=== PATIENT | female | born 2005 | race Caucasian/White ===

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

== ENCOUNTER 2023-02-19 12:30 | Outpatient (RCR) | payer OTHER, SELFPAY ==
--- NOTE | 2022-12-26 11:17 | HP.PTEVAL_ITS ---
Patient's Visit Information ADINA GUZMAN is a 17 year old F referred to Physical Therapy by Dr. Veronique Upton MD with a diagnosis of TENDINITIS OF LEFT FOOT. Date of Evaluation: 12/26/22 Physical Therapist: Alli Haywood, PT, Cert MDT, OCS - Visit Plan Frequency: 2x /Week Duration: 4 Weeks Plan: PT INTERVTIONS ROM ANKLE ,FLEXABILITY G-S , STRENGTHENING EX'S ANKLE STABILZERS AND INTRINSICS ,PROPRIOCEPTION AND FUNCTIONAL STRENGTHENING - Subjective This 17 y/o female presents to physical therapy with left foot tendonitis. Patient has has pain in foot for ~ 2 1.2 years. Patient noticed stress reaction in foot. Eventually symptoms become worse ,had MRI showed tendonitis ,thus underwent debridement ankle arthroscopic left posterior debridement left [facility] also DR found a spur thus had excision on November 17 at [facility] by Dr Upton. Patient was in soft splint 2weeks .with NWB then placed in boot cam and 50 % with crutches. Patient seen DR yesterday everything look good and removed Cam boot and placed in ankle brace. Patient has min pain and some swelling. Patient has had arthroscopic left knee September 14 and had PT . Patient has some paresthesia/tingling. Patient sleeping good. Patient goal return to Club Volleyball. SOCAIL: Student [employer]. VOCATION: [employer] - Objective POSTURE: frontal plan mechanics normal arch. GAIT: Ambulates with slight antalgic gait left side. NEURO: mild paresthesia left foot. INSCION : well approximate. FLEXABILITY: calf mod tight. AROM: dorsiflexion 0 degrees ,plantar flexion 65 degrees ,inversion 40 degrees ,inversion 0 degrees. MMT: ( peak force) dorsiflexion 17.6 ,posterior tibialis 13,2 ,peroneus 8.9. PROPRIOCEPTION: impaired left compared to right - Balance/Special Test Scores Lower Extremity Functional Score: 41 - Goals Goal 1:: This patient to be I with HEP ankle Goal Time Frame: 4-6 Weeks Goal 2:: Patient to demonstrate 75% improvement with decrease pain and improved function. Goal Time Frame: 4-6 Weeks Goal 3:: Patient to improve AROM ankle WNL symmetrical left compared to tight to improve gait Goal Time Frame: 4-6 Weeks Goal 4:: Patient to improve peak force of ankle by 10 # to improve gait and function. Goal Time Frame: 4-6 Weeks Goal 5:: Patient to LFES score by 10 points or> to improve QOL and function - Rehabilitation Potential Physical Therapy Diagnosis: This patient underwent s/p debridement of ankle with decrease ROM ,strength ,proprioception and return playing club volleyball thus benefit from skilled PT Rehabilitation Potential: Good - Anticipated Interventions Patient/Client Instruction: Educate patient on: Condition, Plan of Care For the Purpose of:: To decrease pain, To increase ROM, To improve muscle performance and motor function, To improve ability to perform ADL's, To increase tolerance to activity/condition/position, To improve ability of physical actions for home/community/work/leisure, To improve gait and locomotor functions, To improve health of tissue, To decrease soft tissue restriction, To increase flexibility/ROM, To improve balance, To prevent re-injury Therapeutic Exercise to Include: Strength training, Endurance training, Balance training, Flexibilty training, Dynamic Lumbar Stabilization Comment: LEFT ANKLE For the Purpose of:: To decrease pain, To increase ROM, To improve muscle performance and motor function, To improve ability to perform ADL's, To increase tolerance to activity/condition/position, To improve ability of physical actions for home/community/work/leisure, To improve health of tissue, To decrease soft tissue restriction, To increase flexibility/ROM, To improve endurance, To improve balance, To prevent re-injury TENS: Yes IF ES: Yes Cryotherapy (ice pack, ice massage): Yes Thermo therapy (hot pack): Yes For the Purpose of:: To decrease pain, To decrease swelling/inflammation, To improve nutrient delivery to tissue, To increase oxygenation perfusion, To improve health of tissue, To decrease soft tissue restriction Thank you for the opportunity to evaluate your patient. For Medicare and Medicare HMO plans, please review the plan of care and approve it. It will need to be FAXED BACK to us at [phone] for Medicare purposes. For Medicare only, by signing this I certify the plan of care. Please let me know if there are questions or concerns regarding this plan of care. Physician Signature: Date:
--- NOTE | 2023-02-19 13:43 | HP.PTDCSUM_ITS ---
Discharge Summary D/C summary: It has been my pleasure to treat ADINA GUZMAN referred by Dr. Veronique Upton MD, with the diagnosis of TENDINITIS OF LEFT FOOT for a total of 14 visit(s). Discharge Date: 02/19/23 Please see the following information for a summary of their discharge status. Subjective Subjective: DOING GREAT Pain L ankle: Pain Intensity (Out of 10): 0 Overall Improvement % Improvement: 100 Objective Objective/Function: POSTURE: frontal plan mechanics normal arch. GAIT: Ambulate s with slight antalgic gait left side. NEURO: mild paresthesia left foot. INSCION : well approximate. FLEXABILITY: calf mod tight. AROM: dorsiflexion 10 degrees ,plantar flexion 65 degrees ,inversion 40 degrees ,inversion 5degrees. MMT: ( peak force) dorsiflexion 34.6 ,posterior tibialis 28,2 ,peroneus 23.9. PROPRIOCEPTION: NORMAL NO PAIN WITH RUNNING AND JUMPING Goals Goal 1:: This patient to be I with HEP ankle Goal Progress: Goal Met Goal 2:: Patient to demonstrate 75% improvement with decrease pain and improved function. Goal Progress: Goal Met Goal 3:: Patient to improve AROM ankle WNL symmetrical left compared to tight to improve gait Goal Progress: Goal Met Goal 4:: Patient to improve peak force of ankle by 10 # to improve gait and function. Goal Progress: Goal Met Goal 5:: Patient to LFES score by 10 points or> to improve QOL and function Goal Progress: Goal Met Plan Plan: D/C HEP RTS D/C Information d/c sentence: If there are questions or concerns regarding this patient's physical therapy, please feel free to call me at [phone]. Thank you for the referral of this patient. Sincerely, Alli Haywood, PT, Cert MDT, OCS Balance/Gait/Functional tests Balance/Special Test Scores Lower Extremity Functional Score: 80
== END 2023-02-19 14:15 | disposition home or self-care (01) ==
LOC: PT 12:30
PROVIDERS: PCP Family Medicine; Referring Provider Orthopaedic Surgery; Visit Provider Orthopaedic Surgery
DX: M77.52 Other enthesopathy of left foot and ankle (principal)
CPT/HCPCS: 97110; 97162; 97530

== ENCOUNTER → 2023-12-31 | Outpatient (CLI) | payer OTHER, SELFPAY ==
[2023-12-31 12:27] LABS: Absolute Lymphocyte Count 1.42 X10^3/uL (0.83-4.51); Absolute Neutrophil Count 3.4 X10^3/uL (2.0-7.7); Basophil# 0.05 X10^3/uL; Basophil% 0.9 % (0-1); Eosinophil# 0.13 X10^3/uL; Eosinophils% 2.4 % (0-5); Hematocrit 45.4 % (37-47); Lymphocyte # 1.42 X10^3/ul (0.83-4.51); Lymphocyte % 26.4 % (19-41); Mean Corpuscular Hgb 30.7 pg (27.0-32.0); Mean Corpuscular Volume 92.8 fL (81-99); Mean Platelet Vol. 9.8 fl (6.2-12.0); Monocyte# 0.34 X10^3/uL; Monocyte% 6.3 % (0-10); NRBC Flagged by Analyzer 0 % (0-5); Neutrophil # 3.42 X10^3/uL (2.7-7.7); Neutrophil % 63.8 % (47-70); Platelet Count 310 K/mm3 (150-450); RBC Distribution Width CV 11.8 % (11.6-14.6); RBC Distribution Width SD 40.3 fl (35.1-43.9); Red Blood Count 4.89 M/mm3 (4.2-5.4); White Blood Count 5.4 K/mm3 (4.4-11.0)
[2023-12-31 12:29] LABS: Differential Comment 5.4; Erythrocyte Sedimentation Rate 2 mm/hr (0-30)
[2023-12-31 13:03] LABS: AST(SGOT) 18 U/L (15-37); Alanine Aminotransfer ALT/SGPT 31 U/L (13-56); Albumin, Serum 3.9 g/dL (3.2-5.0); Alkaline Phosphatase 69 U/L (45-117); Anion Gap 6 (5-15); BUN 14 mg/dL (7-18); BUN/Creat Ratio 14.6 RATIO (10-20); Calcium,Total 9.5 mg/dL (8.5-10.1); Chloride 109 mmol/L (98-107); Creatinine, Serum 0.96 mg/dL (0.55-1.02); EST Glomerular Filtration Rate 79 mL/min (>60); Est Glom Filt Rate - Afr Amer 95 mL/min (>60); Globulin 3.9 g/dL (2.2-4.2); Glucose 89 mg/dL (74-106); Potassium 3.9 mmol/L (3.5-5.1); Protein, Total 7.8 g/dL (6.4-8.2); Sodium Level 140 mmol/L (136-145); Thyroid Stim Hormone (TSH) 1.41 uIU/mL (0.358-3.74)
[2024-01-01 15:08] LABS: EBV Acute VCA IgM < 36.0 U/mL (0.0-35.9); EBV Early Antigen IgG >150.0 U/mL (0.0-8.9); EBV-VCA IgG > 600.0 U/mL (0.0-17.9)
== END | disposition home or self-care (01) ==
LOC: MFPLAB 09:46
PROVIDERS: PCP Family Medicine; Visit Provider Family Medicine
DX: R53.83 Other fatigue (principal)
CPT/HCPCS: 36415; 80053; 84443; 85025; 85652; 86663; 86664; 86665

== ENCOUNTER → 2024-01-01 | Outpatient (CLI) | payer OTHER, SELFPAY ==
--- NOTE | 2024-01-01 16:23 | MRI_ITS ---
STUDY: MRI LEFT MIDFOOT REASON FOR EXAM: Female, 18 years old. LEFT FOOT PAIN, SPRAIN OF TARSOMETATARSAL LIGAMENT -- EVAL FOR LISFRANC LIGAMENT TEAR TECHNIQUE: Standardized fat and water weighted pulse sequences were obtained in all 3 orthogonal planes. COMPARISON: Left hindfoot MRI dated 05/21/2021. FINDINGS: Normal talonavicular articulation. Normal calcaneocuboid articulation. Normal navicular-cuneiform articulations. Normal intercuneiform articulations. Normal first tarsometatarsal articulation. Normal Lisfranc ligament. Normal second and third tarsometatarsal articulations. Normal cuboid fourth and cuboid fifth tarsometatarsal articulation. Normal first through fifth metatarsi. There is no demonstrated fracture of the metatarsal bones. Normal tibialis anterior tendon. Normal extensor hallucis longus tendon. Normal extensor digitorum longus tendons. Normal peroneus longus tendon and distal insertion. Normal peroneus brevis tendon and distal insertion. Normal intrinsic muscles of the mid and forefoot region. Normal extensor digitorum brevis muscle. Normal subcutis adipose space. There is no demonstrated soft tissue mass lesion. MRI/Lower Ext/No Jt/w/o IMPRESSION: Normal Lisfranc ligament. Normal MRI of the midfoot. Electronically Signed: Sawyer Nichols MD at 9:04 EDT ,
== END | disposition home or self-care (01) ==
LOC: MRI 16:19
PROVIDERS: PCP Family Medicine; Referring Provider Student in an Organized Health Care Education/Training Program; Visit Provider Student in an Organized Health Care Education/Training Program
DX: S93.622A Sprain of tarsometatarsal ligament of left foot, initial encounter (principal); M79.672 Pain in left foot
CPT/HCPCS: 73718

== ENCOUNTER 2024-12-05 02:16 | Emergency (ER) | payer OTHER, SELFPAY ==
[2024-12-05 02:17] VITALS: BP 143/89; PULSE 113; RESP 18; TEMP 36.9; O2SAT 100; BMI 34.0
--- NOTE | 2024-12-05 03:02 | ED.VIS.LOWEX ---
HPI History of Present Illness Chief Complaint: Lower Extremity Injury Informant: patient and parent Narrative Narrative: Here with mother left ankle injury 2 hours ago. The workshop when she excellently kicked something. No other injuries. Left foot pain for last 5 years followed by specialist in [place]. She had osteotomy this past July. Pain with ambulation. No medication taken prior arrival. No allergies to medications. [facility] Medical History Heart murmur IBS (irritable bowel syndrome) Hypoglycemia Patellar maltracking Home Medications ?Medication ?Instructions ?Recorded ?Last Taken ?Type drospirenone 3 mg-ethinyl 1 ea PO DAILY 08/07/20 Unknown History estradiol 0.02 mg tablet multivitamin 1 tab PO DAILY 02/06/23 Unknown History Allergy/AdvReac Type Severity Reaction Status Date / Time adhesive tape Allergy Mild Rash Verified 12/05/24 02:17 Surgical History Status post left foot surgery S/P left knee arthroscopy H/O rhinoplasty Social History Smoking Status: Never smoker ROS ROS ED Constitutional Constitutional ED: Denies fever(s) Gastrointestinal Gastrointestinal: Denies vomiting Musculoskeletal Musculoskeletal: Reports other Details: Left ankle injury. Integumentary Reports Abrasions; Denies rash or wounds Neurologic Neurologic: Denies weakness EXAM Physical Exam Const Vital Signs: 12/05/24 02:17 12/05/24 04:08 Temperature 98.4 F 98.3 F Temperature Source Oral Pulse Rate 113 H 68 Respiratory Rate 18 15 Blood Pressure 143/89 H 129/74 H Blood Pressure Mean 107 92 Pulse Ox 100 99 Oxygen Delivery Method Room Air Positive well nourished and well developed General Appearance ED: well developed HEENT normocephalic and atraumatic Eyes General Eye ED: Yes normal appearance of both eyes Neck full ROM Resp normal respiratory effort and normal air movement Cardio regular rhythm Rate: tachycardic GI soft to palpation Extremity Extremity Narrative: Left lower extremity no knee tenderness. No swelling slight ecchymosis lateral malleolus small abrasion noted with dried blood. There was dorsal foot healed scar area of the first metatarsal. Neuro oriented x3 Skin Skin Narrative: See above MDM MDM MDM Narrative Medical decision making narrative: Interventions / MDM: Differential diagnosis: Contusion Diagnosis considered but do not suspect: Fracture x-ray negative. My EKG interpretation: N/A Imaging independently reviewed and interpreted by myself: Left ankle x-ray 3 views: No fracture noted soft tissue swelling. External documents reviewed: N/A Test considered but not ordered:N/A ED course: Ice the injury the ankle. Ice was placed Motrin ordered. X-ray ankle for further evaluation. X-ray negative. Bon wrap Aircast provided mother has crutches in the car. Discussed continued NSAIDs as needed with outpatient follow-up. All questions were answered. Re-evaluation: stable Disposition discussed with patient/family/significant other: Patient and mother Case discussed with consulting clinician: N/A This note was generated with [employer] dictation software. It may contain incorrect words, spelling, and punctuation that were not noted in checking the note before signing. Radiography Diagnostic Testing: Clinical Impression(s) from Imaging Studies Ankle X-Ray 12/05/24 03:10 IMPRESSION: No fracture or dislocation. Joint spaces appear within limits. Lateral ankle soft tissue swelling. If symptoms persist, may follow-up with repeat imaging in 7-10 days as warranted. Reading Location: [facility] Discharge Plan Triage Chief Complaint: Lower Extremity Injury ED Provider: Aditya Randhawa Dx/Rx/DC Orders Clinical Impression: Contusion of ankle, left, Injury of ankle, left Instructions: ED Soft Tissue Contusion Prescriptions: No Action multivitamin Tablet 1 tab PO DAILY drospirenone-ethinyl estradiol 1 EACH tablet 1 ea PO DAILY Primary Care Provider: Care Physician,No Primary Referrals: Care Physician,No Primary [Primary Care Provider] - Activity Restrictions/Additional Instructions: Ankle x-ray negative for fracture. Bon wrap Aircast to support. Use your crutches as needed. Continue ibuprofen up to 600 mg every 6 hours for next 2 days and as needed. Continue ice. Follow-up with your doctors. Print Language: Serbian Disposition Disposition: Home, Self Care Discharge Date/Time: 12/05/24 04:09
--- NOTE | 2024-12-05 03:10 | RAD_ITS ---
PROCEDURE: ANKLE MIN 3 VIEWS 12/05/2024 REASON FOR EXAM: INJURY TECHNIQUE: 3 views of the left ankle COMPARISON: None available FINDINGS: No fracture or dislocation. Joint spaces appear within limits. Lateral ankle soft tissue swelling. RAD/Ankle min 3 Views IMPRESSION: No fracture or dislocation. Joint spaces appear within limits. Lateral ankle so ft tissue swelling. If symptoms persist, may follow-up with repeat imaging in 7-10 days as warranted. Reading Location: [id number]
[2024-12-05] MEDS: Ibuprofen 600 MG Tablet PO (03:34)
[2024-12-05 04:08] VITALS: BP 129/74; PULSE 68; RESP 15; TEMP 36.8; O2SAT 99
== END 2024-12-05 04:09 | disposition home or self-care (01) ==
PROVIDERS: Emergency Provider Emergency Medicine; Visit Provider Emergency Medicine
DX: S90.02XA Contusion of left ankle, initial encounter (principal); W22.8XXA Striking against or struck by other objects, initial encounter
CPT/HCPCS: 73610; 99283

== ENCOUNTER → 2024-12-30 | Outpatient (CLI) | payer OTHER, SELFPAY ==
[2024-12-30 12:30] LABS: Absolute Lymphocyte Count 1.91 X10^3/uL (0.83-4.51); Basophil# 0.04 X10^3/uL; Basophil% 0.5 % (0-1); Eosinophils% 1.3 % (0-5); Hematocrit 41.3 % (37-47); Hemoglobin 13.8 g/dL (12.0-15.0); Lymphocyte # 1.91 X10^3/ul (0.83-4.51); Lymphocyte % 25.2 % (19-41); Mean Corp Hgb Conc 33.4 g/dL (32-36); Mean Corpuscular Hgb 30.7 pg (27.0-32.0); Mean Corpuscular Volume 91.8 fL (81-99); Mean Platelet Vol. 9.5 fl (6.2-12.0); Monocyte# 0.46 X10^3/uL; Monocyte% 6.1 % (0-10); NRBC Flagged by Analyzer 0 % (0-5); Neutrophil # 5.03 X10^3/uL (2.7-7.7); Neutrophil % 66.5 % (47-70); Platelet Count 287 K/mm3 (150-450); RBC Distribution Width CV 11.6 % (11.6-14.6); RBC Distribution Width SD 39.4 fl (35.1-43.9); White Blood Count 7.6 K/mm3 (4.4-11.0)
[2024-12-30 12:54] LABS: Hemoglobin A1c 5.5 % (<=5.6)
[2024-12-30 13:28] LABS: ALB/GLOB Ratio 1.5 RATIO (0.9-2.4); AST(SGOT) 17 U/L (<=31); Alanine Aminotransfer ALT/SGPT 19 U/L (<=34); Albumin, Serum 4.2 g/dL (3.5-5.0); Alkaline Phosphatase 75 U/L (35-104); Anion Gap 13 (5-15); BUN 18 mg/dL (4-19); Calcium,Total 9.2 mg/dL (7.6-11.0); Carbon Dioxide 17.9 mmol/L (21.0-32.0); Chloride 107 mmol/L (98-108); Creatinine, Serum 0.82 mg/dL (0.70-1.20); EST Glomerular Filtration Rate 104 (>60); Globulin 2.8 g/dL (2.2-4.2); Glucose 93 mg/dL (70-99); Potassium 4.2 mmol/L (3.3-5.1); Sodium Level 138 mmol/L (133-145); Total Bilirubin 0.21 mg/dL (0.00-1.30); Vitamin D,25 Hydroxy 40.4 ng/mL (30-100)
[2024-12-31 13:08] LABS: ANTINUCLEAR ANTIBODIES DIRECT Negative (Negative)
[2025-01-01 07:08] LABS: Thyroid Stim Immunoglob <0.10 IU/L (0.00-0.55)
== END | disposition home or self-care (01) ==
LOC: MFPLAB 10:23
PROVIDERS: PCP Family Medicine; Referring Provider Family Medicine; Visit Provider Family Medicine
DX: Z13.1 Encounter for screening for diabetes mellitus (principal); R53.83 Other fatigue
CPT/HCPCS: 36415; 80053; 82306; 83036; 84439; 84443; 84445; 85025; 86038

== ENCOUNTER → 2025-02-18 | Outpatient (CLI) | payer OTHER, SELFPAY ==
[2025-02-18 10:39] LABS: Hematocrit 41.7 % (37-47); Hemoglobin 14.0 g/dL (12.0-15.0); Immature Granulocytes Count 0.010 X10^3/uL (0.0-0.0); Mean Corp Hgb Conc 33.6 g/dL (32-36); Mean Corpuscular Volume 90.8 fL (81-99); Mean Platelet Vol. 9.2 fl (6.2-12.0); NRBC Flagged by Analyzer 0 % (0-5); Platelet Count 286 K/mm3 (150-450); RBC Distribution Width CV 12.0 % (11.6-14.6); RBC Distribution Width SD 39.8 fl (35.1-43.9); Red Blood Count 4.59 M/mm3 (4.2-5.4); White Blood Count 6.7 K/mm3 (4.4-11.0)
[2025-02-18 11:45] LABS: AST(SGOT) 21 U/L (<=31); Alanine Aminotransfer ALT/SGPT 22 U/L (<=34); Albumin, Serum 4.3 g/dL (3.5-5.0); Alkaline Phosphatase 70 U/L (35-104); Anion Gap 16 (5-15); BUN 12 mg/dL (4-19); BUN/Creat Ratio 15.0 RATIO (10-20); CORTISOL AM 20.30 ug/dL (6.02-18.40); CRP 5.25 mg/L (0.0-3.0); Calcium,Total 9.7 mg/dL (7.6-11.0); Carbon Dioxide 19.0 mmol/L (21.0-32.0); Chloride 105 mmol/L (98-108); Globulin 2.8 g/dL (2.2-4.2); Glucose 84 mg/dL (70-99); HIV Nonreactive (Nonreactive); Potassium 3.6 mmol/L (3.3-5.1); Syphilis Antibodies Nonreactive (Nonreactive)
[2025-02-24 17:08] LABS: Immunoglobulin A 60 mg/dL (87-352); Immunoglobulin G 882 mg/dL (586-1602); Immunoglobulin M 56 mg/dL (26-217)
== END | disposition home or self-care (01) ==
LOC: MFPLAB 09:17
PROVIDERS: PCP Family Medicine; Visit Provider Family Medicine
DX: N94.6 Dysmenorrhea, unspecified (principal); R53.83 Other fatigue
CPT/HCPCS: 36415; 80053; 82533; 82627; 82784; 82785; 83516; 85025; 86140; 86255; 86617; 86703; 86780; 82626

== ENCOUNTER → 2025-02-20 | Outpatient (CLI) | payer OTHER, SELFPAY | END | disposition home or self-care (01) | LOC: MTLAB 08:38 | PROVIDERS: PCP Family Medicine; Referring Provider Family Medicine; Visit Provider Family Medicine | DX: E24.9 Cushing's syndrome, unspecified (principal) | CPT/HCPCS: 36415; 82088 ==

== ENCOUNTER → 2025-05-05 | Outpatient (CLI) | payer OTHER, SELFPAY ==
[2025-05-10 22:06] LABS: Cortisol, Free 24Ur 78 ug/24 hr (6-42)
== END | disposition home or self-care (01) ==
LOC: LABSPEC 09:11
PROVIDERS: PCP Family Medicine; Referring Provider Family Medicine; Visit Provider Family Medicine
DX: E24.9 Cushing's syndrome, unspecified (principal)
CPT/HCPCS: 81050; 82530

== ENCOUNTER → 2025-05-19 | Outpatient (CLI) | payer OTHER, SELFPAY ==
--- NOTE | 2025-05-19 16:33 | CT_ITS ---
PROCEDURE: SINUS/FACIAL BONE 05/19/2025 REASON FOR EXAM: OTHER CHRONIC SINUSITIS TECHNIQUE: Procedure Code: CTSI Modality: CT Procedure: SINUS/FACIAL BONE Coronal and Sagittal reconstruction series were provided. One or more dose reduction techniques were used (e.g., Automated exposure control, adjustment of the mA and/or kV according to patient size, use of iterative reconstruction technique). RADIATION DOSE SUMMARY: CTDI Vol 22.63 mGy DLP :515.6mGycm COMPARISON: none FINDINGS: Focal mucosal thickening of the left sphenoid sinus compartment and right ethmoidal air cells. Clear frontal sinuses as well as the maxillary antra ad left ethmoidal air cells. Uncinate Processes: No deviation or bulla formation O-M UNIT: patent. Sphenoethmoidal recesses. Patent Fovea Ethmoidalis: Normal position. Fovea ethmoidalis and cribriform plate are not low lying Nasal Septum: minimally bowed convex to the left side with small bony spur seen along its convex side. Turbinates: Thickening of the mucosa covering the right inferior turbinate. Nasopharynx: no obvious abnormalities. Mastoid air cells and middle ear clefts: Unremarkable Facial Bones and mandible: Unremarkable. CT/Sinus/Facial Bone IMPRESSION: Mild sphenoid and right ethmoidal sinusitis. Bowed nasal septum convex to the left side. Prominent right inferior turbinate. Reading Location: [place] [id number]
--- OUTSIDE RECORDS SUMMARY | 2025-05-19 17:28 | XMS RPT_ITS | CCD ---
Author Organization [facility] Care Team Providers Care Real Estate Broker Name Role Phone Dr. Amber Galindo Primary Care Provider Dr. Sadiq Tenorio Attending Provider [phone] Yanna Jackson Referring Provider Dr. Amber Galindo Primary Care Provider Dr. Amber Galindo Referring Provider [phone] Dr. Kaye Rodriguez Attending Provider [phone] Unavailable Primary Care Provider Unavailchilango Galindo MD, Amber Guzmán Primary Care Provider MARYAM LANCASTER Attending Unavailable AMBER GALINDO Primary Care Unavailable PROMISE ROMANO Attending Unavailabl e NO, PHYSICIAN Primary Care Unavailable SUNIL LOPES Attending UnavailSUNIL Snell Referring Unavailabl AMBRE Archer RAFAEL Primary Care Unavailable Amber Galindo Primary Care Provider [phone] Amber Galindo Rafael Primary Care Provider [phone] AMBER GALINDO Primary Care Unavailable ANASTASIA TEJADA Attending Unavailable FENG TOLENTINO Attending Unavailab AMBER Sanchez Primary Care Unavailable AMBER GALINDO RAFAEL Primary Care Unavailable MIRNA NAVARRO Attending Unavailable SUNIL PANIAGUA JR. Referring Unavailable SUNIL PANIAGUA JR. Admitting Unavailable Care Physician, No Primary Primary Care Provider Unavailable Dr. Aditya Randhawa DO Emergency Provider Dr. Aditya Randhawa DO Attending Provider [phone] June COREA, Luisito Primary Care Provider Luisito Watkins MD Attending Provider June COREA, Luisito Referring Provider Dr. Sadiq Benítez MD Attending Provider Dr. Sadiq Benítez MD Referring Provider JOLLIFF, AMBER RAFAEL Primary Care Unavailable HAURY, DURAN Referring Unavailable JOLLIFF, AMBER RAFAEL Primary Care Unavailable HAURY, DURAN Attending Unavailable JAYLONLLIFF, AMBER RAFAEL Primary Care Unavailable June COREA, Luisito Primary Care Physician [phone] Luisito Watkins MD Attending Physician Jeyson COREA, Dr. Babcock Attending Physician Dr. Amber Galindo MD Referring Provider Omayra COREA, Dr. Charles Attending Physician June, Chalon Primary Care Unavailable Amber Galindo S Referring Unavailable Melvin Cutler Attending Unavailable June, Chalon Primary Care Unavailable Jeyson, Sadiq Attending Unavailable Benítez, Sadiq Referring Unavailable June, Chalon Primary Care Unavailable Jeyson, Sadiq Attending Unavailable Benítez, Sadiq Referring Unavailable June, Chalon Primary Care Unavailable Benítez, Sadiq Attending Unavailable Benítez, Sadiq Referring Unavailable June, Chalon Primary Care Unavailable Benítez, Sadiq Attending Unavailable Aditya Randhawa Attending Unavailable Care Physician, No Primary Primary Care Unava ilable [place] Attending Unavailchilango e [place] Referring Unavailabl e June, Chalon Primary Care Unavailable June, Chalon Primary Care Unavailable June, Chalon Attending Unavailable June, Chalon Referring Unavailable Allergies Allergy Classification Reported Allergen(s) Allergy Type Date of Onset Reaction(s) Facility (7 sources) Adhesive Tape; Translations: [adhesive tape] Allergy to substance 3 [facility] (12 sources) Adhesive Tape-Silicones; Translations: [ADHESIVE TAPE-SILICONES] Propensity to adverse reactions to drug 3 [facility] Medications Current Medications Medication Drug Class(es) Dates Sig (Normalized) Sig (Original) acetaminophen 250 mg / aspirin 250 mg / caffeine 65 mg oral tablet (1 source) Platelet Aggregation Inhibitor, Nonsteroidal Anti-inflammatory Drug, Central Nervous System Stimulant, Methylxanthine Start: 08-28-2023 End: 09-12-2023 take 2 tablets by mouth once daily as needed for pain aspirin-acetamin ophen-caffeine (EXCEDRIN MIGRAINE) 250-250-65 mg per tablet Indications: Post concussive syndrome Take 2 (two) tablets by mouth daily as needed for pain . 30 tablet 0 08/28/2023 09/12/2023 Active ascorbic acid 1000 mg oral capsule (1 source) Vitamin C Start: 04-06-2025 take 1 capsule by mouth twice daily Ascorbic Acid (Vitamin C) 1,000 mg capsule Active 1000 mg PO TWICE A DAY April 06, 2025 12:00am Complies with drug therapy benzonatate 100 mg oral capsule (1 source) Non-narcotic Antitussive Start: 08-23-2024 End: 08-30-2024 take 1 capsule by mouth three times daily as needed for cough benzonatate (TESSALON) 100 MG capsule Indications: Influenza B Take 1 (one) capsule (100 mg total) by mouth 3 (three) times a day as needed for cough . 20 capsule 08/23/2024 08/30/2024 Active dextromethorphan hydrobromide 15 mg / guaiFENesin 400 mg / pseudoephedrine hydrochloride 60 mg oral tablet (3 sources) alpha-Adrenergic Agonist, Uncompetitive N-lvxjnx-L-aspartate Receptor Antagonist, Sigma-1 Agonist Start: 08-23-2024 take 1 tablet by mouth every six hours as needed for cough pseudoephedrine- DM-guaiFENesin (Capmist DM) 60-15-400 mg Tab Indications: Influenza B Take 1 (one) tablet by mouth every 6 (six) hours as needed (cough, congestion) . 30 tablet 08/23/2024 Active dicyclomine hydrochloride 10 mg oral capsule (5 sources) Anticholinergic Start: 08-16-2023 take 1 capsule by mouth four times daily before mealtime dicyclomine (BENTYL) 10 MG capsule Take 1 (one) capsule (10 mg total) by mouth 4 (four) times a day before meals and nightly for 7 days . 28 capsule 0 08/16/2023 Active docusate sodium 50 mg / sennosides, retirement 8.6 mg oral tablet (5 sources) Start: 08-27-2023 End: 08-26-2024 take 1 tablet by mouth once daily senna-docusate (SENNA-S) 8.6-50 mg Take 1 (one) tablet by mouth daily . 30 tablet 11 08/27/2023 08/26/2024 Active Drospirenone-Ethinyl Estradiol (20 sources) Progestin, Estrogen Start: 08-07-2020 Drospirenone-Eth inyl Estradiol Active 1 EACH PO DAILY August 07, 2020 7:55am Start: 08-07-2020 Drospirenone-E thinyl Estradiol 1 EACH tablet Active 1 NMA PO DAILY August 07, 2020 1:00am Complies with drug therapy Start: 08-07-2020 Drospirenone-E thinyl Estradiol 1 EACH tablet Active 1 NMA PO DAILY August 07, 2020 1:00am Start: 08-07-2020 Drospirenone-E thinyl Estradiol Active 1 EACH PO DAILY August 07, 2020 12:00am Start: 08-07-2020 Drospirenone-E thinyl Estradiol Active 1 EACH PO DAILY August 07, 2020 1:00am 21 day ethinyl estradiol 0.417614 mg/hr / etonogestrel 0.005 mg/hr vaginal system (14 sources) Progestin, Estrogen Start: 11-30-2023 End: 08-13-2024 etonogestreL-ethinyl estradioL (NUVARING) 0.12-0.015 mg/24 hr vaginal ring Insert 1 (one) each into the vagina See Admin Instructions . 02/25/2024 Active fluticasone propionate 0.05 mg/actuat metered dose nasal spray (3 sources) Corticosteroid Start: 08-23-2024 fluticasone propionate (Flonase Allergy Relief) 50 mcg/actuation nasal spray Indications: Influenza B Instill 2 (two) sprays into each nostril nightly 2 spray each nostril . 16 mL 08/23/2024 Active ibuprofen 600 mg oral tablet (5 sources) Nonsteroidal Anti-inflammatory Drug Start: 08-16-2023 End: 09-15-2023 take 1 tablet by mouth every six hours as needed for pain ibuprofen (ADVIL,MOTRIN) 600 MG tablet Take 1 (one) tablet (600 mg total) by mouth every 6 (six) hours as needed for pain . 30 tablet 0 08/16/2023 09/15/2023 Active miSOPROStol 0.2 mg oral tablet (1 source) Prostaglandin E1 Analog Start: 06-21-2023 End: 06-22-2023 miSOPROStol (CYTOTEC) 200 mcg tablet Use 2 tablets vaginally as directed for [address] 2 tablets vaginally qhs before the procedure and 2 the morning of 4 tablet 0 06/21/2023 06/22/2023 Active Comment on above: Use 2 tablets vagina lly as directed for [address] 2 tablets vaginally qhs before the procedure and 2 the morning of Multivitamin preparation (1 source) Start: 02-06-2023 take 1 tablet by mouth once daily Multivitamin Active 1 TABLET PO DAILY February 06, 2023 12:00am Multivitamin tablet (5 sources) Start: 02-06-2023 Multivitamin tablet Active 1 {tbl} PO DAILY February 06, 2023 12:00am Complies with drug therapy Start: 02-06-2023 Multivitamin t ablet Active 1 {tbl} PO DAILY February 06, 2023 12:00am NAC (1 source) Start: 04-06-2025 take 600 mg by mouth twice daily NAC Active PO April 06, 2025 12:00am 600mg BID. Complies with drug therapy ondansetron 4 mg disintegrating oral tablet (5 sources) Serotonin-3 Receptor Antagonist Start: 08-22-2023 End: 08-29-2023 take 1 tablet by mouth every eight hours as needed for nausea ondansetron (ZOFRAN-ODT) 4 MG disintegrating tablet Dissolve 1 (one) tablet (4 mg total) on top of tongue every 8 (eight) hours as needed for nausea . 20 tablet 0 08/22/2023 08/29/2023 Active oseltamivir 75 mg oral capsule (1 source) Neuraminidase Inhibitor Start: 08-23-2024 End: 08-28-2024 take 1 capsule by mouth twice daily oseltamivir (Tamiflu) 75 MG capsule Indications: Influenza B Take 1 (one) capsule (75 mg total) by mouth 2 (two) times a day for 5 days . 10 capsule 08/23/2024 08/28/2024 Active polyethylene glycol 3350 64751 mg powder for oral solution (5 sources) Osmotic Laxative Start: 08-27-2023 End: 09-03-2023 polyethylene glycol (MIRALAX) 17 gram powder Take 17 (seventeen) g by mouth daily for 7 days . 7 packet 0 08/27/2023 09/03/2023 Active Completed/Discontinued Medications Medication Drug Class(es) Dates Sig (Normalized) Sig (Original) calcipotriene 0.29171 mg/mg topical ointment (4 sources) Vitamin D Analog Start: 04-30-2023 End: 11-08-2023 calcipotriene (DOVONEX) 0.005 % oint doxycycline hyclate 100 mg oral tablet (1 source) Tetracycline-class Drug Start: 09-04-2023 End: 09-11-2023 take 1 tablet by mouth twice daily doxycycline (VIBRA-TABS) 100 mg tablet Take 1 tablet by mouth two times a day for 7 days. 14 tablet 0 09/04/2023 09/11/2023 Comment on above: Take 1 tablet by hallie two times a day for 7 days. levonorgestrel 0.341467 mg/hr intrauterine system (9 sources) Progestin, Progestin-containi ng Intrauterine Device Start: 06-27-2023 End: 06-25-2031 levonorgestrel (MIRENA) 21 mcg/24 hours (8 yrs) 52 mg IUD Indications: Encounter for IUD insertion 1 Each by INTRAUTERINE route as directed. 1 Each 0 06/27/2023 11/30/2023 Discontinued (Side Effects) Comment on above: 1 Each by INTRAUTERI NE route as directed. Problems Active Problems Problem Classification Problem Date Documented Da te Episodic/Chronic Abdominal pain (20 sources) Abdominal pain; Translations: [Unspecified abdominal pain] Onset: 08-15-2023 08-08-2020 Episodic Alcohol-related disorders (2 sources) Alcohol intoxication; Translations: [Alcohol intoxication] Onset: 08-22-2023 Chronic Contraceptive and procreative management (7 sources) Patient encounter status; Translations: [Encounter for initial prescription of other contraceptives] 06-21-2023 Episodic Delirium, dementia, and amnestic and other cognitive disorders (4 sources) Postconcussion syndrome; Translations: [Postconcussional syndrome] Onset: 08-28-2023 08-28-2023 Chronic E Codes: Fall (2 sources) Unspecified fall, initial encounter; Translations: [Unspecified fall, initial encounter] Onset: 08-22-2023 Episodic E Codes: Fall (2 sources) Fall; Translations: [Fall] Onset: 08-22-2023 Gastrointestinal hemorrhage (20 sources) Hematochezia; Translations: [Melena] 08-08-2020 Episodic Immunizations and screening for infectious disease (1 source) Suspected disease caused by 2019-nCoV; Translations: [Suspected COVID-19 virus infection] 08-23-2024 Episodic Influenza (3 sources) Influenza due to Influenza B virus; Translations: [Influenza due to other identified influenza virus with other respiratory manifestations] Onset: 08-23-2024 08-23-2024 Episodic Menstrual disorders (1 source) Dysmenorrhea, unspecified; Translations: [Dysmenorrhea, unspecified] Onset: 02-24-2025 Chronic Other bone disease and musculoskeletal deformities (20 sources) Segmental and somatic dysfunction; Translations: [Segmental and somatic dysfunction of cervical region] 02-06-2023 Episodic Other bone disease and musculoskeletal deformities (3 sources) Segmental and somatic dysfunction of cervical region; Translations: [Nonallopathic lesions, cervical region] 02-06-2023 Episodic Other bone disease and musculoskeletal deformities (3 sources) Segmental and somatic dysfunction of lumbar region; Translations: [Nonallopathic lesions, lumbar region] 02-06-2023 Episodic Other bone disease and musculoskeletal deformities (3 sources) Segmental and somatic dysfunction of pelvic region; Translations: [Nonallopathic lesions, pelvic region] 02-06-2023 Episodic Other bone disease and musculoskeletal deformities (3 sources) Segmental and somatic dysfunction of thoracic region; Translations: [Nonallopathic lesions, thoracic region] 02-06-2023 Episodic Other connective tissue disease (1 source) Pain in left foot; Translations: [Pain in left foot] 11-21-2024 Episodic Other connective tissue disease (2 sources) Pain in left foot; Translations: [Pain in left foot] Onset: 11-21-2024 Episodic Other endocrine disorders (2 sources) Yenny's syndrome, unspecified; 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, 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 Chronic Other gastrointestinal disorders (20 sources) Diarrhea; Translations: [Diarrhea, unspecified] 08-08-2020 Episodic Other injuries and conditions due to external causes (2 sources) Unspecified injury of head, initial encounter; Translations: [Unspecified injury of head, initial encounter] Onset: 08-22-2023 Episodic Other injuries and conditions due to external causes (5 sources) Injury of left ankle; Translations: [Unspecified injury of left ankle, initial encounter] 12-05-2024 Episodic Other nervous system disorders (9 sources) Postoperative pain ; Translations: [Other acute postprocedural pain] 09-24-2022 Episodic Other nervous system disorders (2 sources) Paresthesia of foot ; Translations: [Paresthesia of skin] 04-06-2025 Episodic Comment on above: Problem involves pre dominantly the left foot and appears to be enthesiopathy at the first tarsometatarsal joint. This is likely a stress injury to bone. Patient also had a heel spur. Patient may be experiencing pressure type symptoms in the feet with episodic numbness when standing. Seems to improve when resting.Father and brother have a history of rotator cuff tears and father has a history of left labrum injury. Patient may be prone to familial connective tissue dysfunction. Exact nature not clear to my review. Other nervous system disorders (1 source) Paresthesia of skin; Translations: [Paresthesia of skin] Onset: 05-13-2025 Episodic Other upper respiratory infections (1 source) Other chronic sinusitis; Translations: [Other chronic sinusitis] Onset: 05-13-2025 Chronic Other upper respiratory infections (3 sources) Sore throat symptom; Translations: [Acute pharyngitis, unspecified] Onset: 08-23-2024 08-23-2024 Episodic Residual codes; unclassified (1 source) Viral syndrome; Translations: [Other general symptoms and signs] 08-23-2024 Episodic Residual codes; unclassified (2 sources) Other general symptoms and signs; Translations: [Other general symptoms and signs] Onset: 08-23-2024 Episodic Spondylosis; intervertebral disc disorders; other back problems (12 sources) Neck pain; Translations: [Cervicalgia] 02-06-2023 Episodic Unclassified (1 source) Contact with and (suspected) exposure to covid-19; Translations: [Contact with and (suspected) exposure to covid-19] Onset: 08-23-2024 Viral infection (2 sources) Reed-Griggs virus disease; Translations: [Infectious mononucleosis, unspecified without complication] Onset: 05-13-2025 04-06-2025 Episodic Past or Other Problems Problem Classification Problem Date Documented Da te Episodic/Chronic Malaise and fatigue (3 sources) Malaise and fatigue; Translations: [Other malaise] Onset: 07-07-2024 07-07-2024 Episodic Mood disorders (3 sources) Mood disorders Onset: 08-27-2023 08-27-2023 Other screening for suspected conditions (not mental disorders or infectious disease) (1 source) Encounter for screening for diabetes mellitus; Translations: [Encounter for screening for diabetes mellitus] Onset: 01-04-2025 Episodic Superficial injury; contusion (6 sources) Contusion of left ankle; Translations: [Contusion of left ankle, initial encounter] Onset: 12-11-2024 12-05-2024 Episodic Unclassified (1 source) Contact with and (suspected) exposure to covid-19; Translations: [Contact with and (suspected) exposure to covid-19] Onset: 08-23-2024 Results Test Name Value Interpretation Reference Range Facil ity Cortisol, 24 HR UR Freeon CORTISOL,F/24hr 78 ug/24 hr High 6-42 [facility] Comment on above: Order Comment: Order Date: 12/30/24 Order Info: [id number] - A1C Result Comment: Perf ormed at: - [facility] [id number] Clinical Support Tech: Taryn Barber MD, Phone: [phone] Performed By: #### L 501.9985, L3400.4700, L506.0400, L100.0100, L3100.5475, L500.4050, L501.9520 #### [facility] [address] [place], [place], [id number] CORTISOL,U FREE 27 ug/L Normal Undefined [facility] Comment on above: Order Comment: Order Date: 12/30/24 Order Info: 4548-4 - A1C Performed By: #### L 501.9985, L3400.4700, L506.0400, L100.0100, L3100.5475, L500.4050, L501.9520 #### [facility] [address] [place], [address] Neurology Visit Reporton Neurology Visit Report [facility] [address] [place] [address] OFFICE VISIT Date of Service: 04/06/25 MR#: [id number] Acct: [id number] Name: CHEYENNE HERNANDEZ Rep #: [id number] : 2005 Provider: Dr. Melvin calzada MD Age/Sex: 19/F Location[place] [facility] [place] Status: Signed HPI HPI Chief Complaint: est care Details: The patient is a 19-year-old right -handed female who presents to [facility]. She was referred 10/28/[address] Sunil Paniagua with [facility] for paresthesia of lower extremity top left foot, but recently the top right foot has started to hurt and go numb. This lady presents by herself for evaluation of the above symptoms. She tells me that left foot symptoms began about 5 years ago. Right foot symptoms began within the past few months. Patient has had significant left foot symptoms with pain and dysfunction. Her initial evaluation by an orthopedist resulted in surgery and ankle spur which may have been compromising the Achilles tendon. Patient subsequently had difficulties and what appeared to be the first tarsometatarsal region of the left foot. Patient has had surgery on the left foot for those symptoms. Patient tells me that following left foot surgery she developed numbness of the left foot. Initially the foot problem involves the entire foot but has gradually reduced to a small oval-shaped area just proximal to the 1st and 2nd toes at the head of the metatarsals. This appears to be a local nerve injury. Patient had extensive evaluations with imaging of the feet and of the back as well. She appears to have had an enthesiopathy in the region of the left first carpometacarpal joint. That is a stress reaction which the muscle insertion elevates the periosteum of the bone. (Shinsplints as an example of a similar problem). Patient had put on about 40 pounds of weight upon graduating from high school. She notes that she works on her feet for extended periods of time and may have symptoms related to walking on a hard surface. She has tried various shoes. She has tried orthotics as well. She does not seem to get relief. Evaluation for possible radiculopathy and neuropathy has been performed. She has had a recent EMG and nerve conduction study performed in November. This is performed at [facility] in [place] and his report is completely normal. NCV included lower extremities and upper extremities well. This study was reported as completely normal. No evidence of neuropathy identified. Patient's overall symptom complex suggest that the patient may be experiencing local pressure neuropathy from standing on her feet working on a hard surface. Patient has no other neurologic symptoms identified. There is a positive family history for diabetes in her mother. There is a positive family history for torn rotator cuffs in her father and brother involving the shoulders. Her father also has a torn labrum of the hip. Possible underlying connective tissue disorder may warrant consideration. Patient has seen veneer grader who did not identify an issue however. Patient did have an elevated CRP of 5 with an upper limit of 3 which is unimpressive. Patient patient is due to be evaluated by instructor decorating for possible pituitary dysfunction. Patient's pituitary is thought to be a possible problem because the patient had an elevated cortisol and an MRI of the adrenals was normal. Patient's elevation cortisol was 20 with an upper limit of 18 which appears relatively unimpressive. I did review patient's laboratory but after she left the clinic I noted that she seemed to have very significant elevation Reed-Griggs virus titers. This is a possible explanation for fatigue and migratory aches and pains. I would recommend that the patient's primary care physician review the various titers that have been obtained on this patient is to relevancy to her overall symptom complex. I did suggest the patient maintain activity such as swimming as a method of maintaining muscle tone and perhaps relieving stress on her skeletal system. It is possible that if she does have an elevation in cortisol and a possible tendency for anesthesia for things that the patient may be at risk for further stress fractures and enthesiopathy's in general. ROS: HEENT: No head trauma headaches loss of vision difficulty swallowing. No epistaxis Respiratory: No shortness of breath. No hemoptysis Cardiac: No chest pain palpitations Abdomen: Obese positive for irritable bowel. Blood in stool. Hemorrhoid. Extremities: Enthesiopathy left foot is noted. Skin: Report of stretch diaz. (Another possible indicator of connective tissue disorder this may be seen in Marfan's or Keya-Danlos although she does not specifically fit body habitus criteria.) Neurologic: No neurologic complaints with regard to seizures or str (more content not included)... 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 COMPARISON: None. TECHNIQUE: Axial T1 weighted in- and nec-aw-ccplb, 3-D GRE and axial and coronal HASTE images were obtained using the torso phased array coil. No intravenous contrast was administered. FINDINGS: The right adrenal gland is normal. The left adrenal gland is normal. The gallbladder is normal. No intrahepatic or extrahepatic biliary dilatation is identified. Common duct is normal in caliber. No filling defect within The visualized portions of the liver, spleen, pancreas and kidneys are normal. The visualized appendix appears normal. Aorta is normal in course and caliber. Visualized bony structures appear intact. Lung bases appear unremarkable IMPRESSION: NORMAL ADRENAL GLANDS. ... 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 Aldosterone, Serumon 025 ALDOSTERONE,S 6.1 ng/dL Normal 0.0-30.0 [facility] Comment on above: Order Comment: Order Date: 12/30/24 Order Info: [id number] - A1C Result Comment: Perf ormed at: - [facility] [address] [id number] Clinical Support Tech: Taryn Barber MD, Phone: [phone] Performed By: #### L 501.9985, L3400.4700, L506.0400, L100.0100, L3100.5475, L500.4050, L501.9520 #### [facility] [address] [place], [address] Celiac Disease Profileon ENDOMYSIAL IGA Negative Normal Negative [facility] Comment on above: Performed By: #### L 501.9985, L3400.4700, L506.0400, L100.0100, L3100.5475, L500.4050, L501.9520 #### [facility] [address] [place], [address] tTG IGA <2 Normal 0-3 [facility] Comment on above: Result Comment: Nega tive 0 - 3 Weak Positive 4 - 10 Positive >10 Tissue Transglutaminase (tTG) has been identified as the endomysial antigen. Studies have demonstr- ated that endomysial IgA antibodies have over 99% specificity for gluten sensitive enteropathy. Performed By: #### L 501.9985, L3400.4700, L506.0400, L100.0100, L3100.5475, L500.4050, L501.9520 #### [facility] [address] [place], [address] tTG IGG 4 U/mL Normal 0-5 [facility] Comment on above: Result Comment: Nega tive 0 - 5 Weak Positive 6 - 9 Positive >9 Performed By: #### L 501.9985, L3400.4700, L506.0400, L100.0100, L3100.5475, L500.4050, L501.9520 #### [facility] [address] [place], [place], [id number] DHEA Sulfateon 02-24-2025 DHEA SULFATE 232.0 ug/dL Normal 110.0-431.7 [facility] Comment on above: Order Comment: Order Date: 12/30/24 Order Info: [id number] - CMP Order Info: [id number] - TSH Order Info: [id number] - T4F Result Comment: Perf ormed at: - [facility] [id number] Clinical Support Tech: Andrade David PhD, Phone: [phone] Performed at: - [facility] [id number] Clinical Support Tech: Taryn Barber MD, Phone: [phone] Performed By: #### L 501.9985, L3400.4700, L506.0400, L100.0100, L3100.5475, L500.4050, L501.9520 #### [facility] [address] [place], [address] Immunoglobulins G/A/M/Lyle IMMUNOGLOB A QN 60 mg/dL Low 87-352 [facility] Comment on above: Order Comment: Order Date: 12/30/24 Order Info: [id number] - A1C Performed By: #### L 501.9985, L3400.4700, L506.0400, L100.0100, L3100.5475, L500.4050, L501.9520 #### [facility] [address] [place], [address] IMMUNOGLOB E QN 26 IU/mL Normal 6-495 [facility] Comment on above: Order Comment: Order Date: 12/30/24 Order Info: [id number] - A1C Performed By: #### L 501.9985, L3400.4700, L506.0400, L100.0100, L3100.5475, L500.4050, L501.9520 #### [facility] [address] [place], [address] IMMUNOGLOB G QN 882 mg/dL Normal 586-1602 [facility] Comment on above: Order Comment: Order Date: 12/30/24 Order Info: [id number] - A1C Performed By: #### L 501.9985, L3400.4700, L506.0400, L100.0100, L3100.5475, L500.4050, L501.9520 #### [facility] [address] [place], [address] IMMUNOGLOB M QN 56 mg/dL Normal 26-217 [facility] Comment on above: Order Comment: Order Date: 12/30/24 Order Info: [id number] - A1C Performed By: #### L 501.9985, L3400.4700, L506.0400, L100.0100, L3100.5475, L500.4050, L501.9520 #### [facility] [address] [place], [address] Lyme Antibodies,W Bloton Lyme Additional Comment Normal . [facility] Comment on above: Result Comment: Per CDC criteria, the Lyme IgG Immunoblot is interpreted as positive if IgG-class antibodies are detected to 5 or more B. burgdorferi proteins, and the Lyme IgM Immunoblot is interpreted as positive if IgM-class antibodies are detected to 2 or more B. burgdorferi proteins. Immunoblot patterns not meeting these criteria should not be interpreted as positive. Epitopes from certain B. burgdorferi proteins (e.g., p41) are conserved across other bacteria, which may lead to the detection of IgM-and/or IgG class antibodies on the Lyme disease immunoblots in patients without Lyme disease. Immunoblot should only be ordered on specimens that are positive or equivocal by an FDA-licensed Lyme disease antibody screening test (e.g., EIA). Results of the Lyme IgM immunoblot should not be considered in patients with 30 or more days of symptoms. Performed By: #### L 501.9985, L3400.4700, L506.0400, L100.0100, L3100.5475, L500.4050, L501.9520 #### [facility] [address] [place], [place], [id number] LYME IgG INTERP Negative Normal Negative [facility] Comment on above: Performed By: #### L 501.9985, L3400.4700, L506.0400, L100.0100, L3100.5475, L500.4050, L501.9520 #### [facility] [address] [place], [address] LYME IgM INTERP Negative Normal Negative [facility] Comment on above: Result Comment: Plea se Note: Lyme immunoblot alone is not recommended for the diagnosis of Lyme disease. Current guidelines recommend the use of a two-tiered approach to Lyme serology testing to improve the sensitivity and specificity of testing. [employer] offers test code 880532 Lyme Disease Serology with Reflex to aid in the diagnosis of Lyme Disease. Performed By: #### L 501.9985, L3400.4700, L506.0400, L100.0100, L3100.5475, L500.4050, L501.9520 #### [facility] [address] [place] [id number] P18 Ab Absent Normal . [facility] Comment on above: Performed By: #### L 501.9985, L3400.4700, L506.0400, L100.0100, L3100.5475, L500.4050, L501.9520 #### [facility] [address] [place] [address] P23 Ab Absent Normal . [facility] Comment on above: Performed By: #### L 501.9985, L3400.4700, L506.0400, L100.0100, L3100.5475, L500.4050, L501.9520 #### [facility] [address] [place], [address] P28 Ab Absent Normal . [facility] Comment on above: Performed By: #### L 501.9985, L3400.4700, L506.0400, L100.0100, L3100.5475, L500.4050, L501.9520 #### [facility] [address] [place] [id number] P30 Ab Absent Normal . [facility] Comment on above: Performed By: #### L 501.9985, L3400.4700, L506.0400, L100.0100, L3100.5475, L500.4050, L501.9520 #### [facility] [address] [place], [address] P39 Ab Absent Normal . [facility] Comment on above: Performed By: #### L 501.9985, L3400.4700, L506.0400, L100.0100, L3100.5475, L500.4050, L501.9520 #### [facility] [address] [place], [facility] P41 Ab Absent Normal . [facility] Comment on above: Performed By: #### L 501.9985, L3400.4700, L506.0400, L100.0100, L3100.5475, L500.4050, L501.9520 #### [facility] [address] [place], [facility] P45 Ab Absent Normal . [facility] Comment on above: Performed By: #### L 501.9985, L3400.4700, L506.0400, L100.0100, L3100.5475, L500.4050, L501.9520 #### [facility] [address] [place], [address] P58 Ab Absent Normal . [facility] Comment on above: Performed By: #### L 501.9985, L3400.4700, L506.0400, L100.0100, L3100.5475, L500.4050, L501.9520 #### [facility] [address] [place], [address] P66 Ab Absent Normal . [facility] Comment on above: Performed By: #### L 501.9985, L3400.4700, L506.0400, L100.0100, L3100.5475, L500.4050, L501.9520 #### [facility] [address] [place], [address] P93 Ab Absent Normal . [facility] Comment on above: Performed By: #### L 501.9985, L3400.4700, L506.0400, L100.0100, L3100.5475, L500.4050, L501.9520 #### [facility] [address] [place], [address] Absolute lymphocyte countOrd ered By: Sadiq Benítez on 02-18-2025 Lymphocytes Auto (Unsp spec) [#/Vol] 2.02 10*3/uL 0.83-4.51 [facility] Absolute neutrophil countOrd ered By: Sadiq Benítez on 02-18-2025 Neutrophils (Bld) [#/Vol] 4.1 10*3/uL 2.0-7.7 [facility] Anion gap in Serum or Plasma Ordered By: Sadiq Benítez on 02-18-2025 Anion gap [Moles/Vol] 16 mmol/L High 5-15 [facility] Automated lymphocyte count a s percentage of total leukocytesOrdered By: Sadiq Benítez on 02-18-2025 Lymphocytes/100 WBC Auto (Unsp spec) 30.3 % 19-41 [facility] BUN/creatinine ratioOrdered By: Sadiq Benítez on 02-18-2025 Urea nitrogen/Creatinine [Mass ratio] 15.0 mg/mg 10-20 [facility] Basophil percentageOrdered B y: Sadiq Benítez on 02-18-2025 Basophils/100 WBC (Bld) 0.5 % 0-1 [facility] Bilirubin, totalOrdered By: Sadiq Benítez on 02-18-2025 Bilirubin [Mass/Vol] 0.28 mg/dL 0.00-1.30 [facility] CBC W/Diff, Automatedon 02-06 Absolute Lymph 2.02 X10 3/uL Normal 0.83-4.51 [facility] Comment on above: Performed By: #### L 501.9985, L3400.4700, L506.0400, L100.0100, L3100.5475, L500.4050, L501.9520 #### [facility] [address] [place], [address] Absolute Neut 4.1 X10 3/uL Normal 2.0-7.7 [facility] Comment on above: Performed By: #### L 501.9985, L3400.4700, L506.0400, L100.0100, L3100.5475, L500.4050, L501.9520 #### [facility] [address] [place], [address] Basophils/100 WBC (Bld) 0.5 % Normal 0-1 [facility] Comment on above: Performed By: #### L 501.9985, L3400.4700, L506.0400, L100.0100, L3100.5475, L500.4050, L501.9520 #### [facility] [address] [place], [address] Eosinophils/100 WBC (Bld) 1.2 % Normal 0-5 [facility] Comment on above: Performed By: #### L 501.9985, L3400.4700, L506.0400, L100.0100, L3100.5475, L500.4050, L501.9520 #### [facility] [address] [place], [address] Erythrocyte distribution width (RBC) [Ratio] 12.0 % Normal 11.6-14.6 [facility] Comment on above: Performed By: #### L 501.9985, L3400.4700, L506.0400, L100.0100, L3100.5475, L500.4050, L501.9520 #### [facility] [address] [place], [address] Hematocrit (Bld) [Volume fraction] 41.7 % Normal 37-47 [facility] Comment on above: Performed By: #### L 501.9985, L3400.4700, L506.0400, L100.0100, L3100.5475, L500.4050, L501.9520 #### [facility] [address] [place], [address] Hemoglobin (Bld) [Mass/Vol] 14.0 g/dL Normal 12.0-15.0 [facility] Comment on above: Performed By: #### L 501.9985, L3400.4700, L506.0400, L100.0100, L3100.5475, L500.4050, L501.9520 #### [facility] [address] [place], [address] IG% 0.200 Normal 0.0-0.9 [facility] Comment on above: Result Comment: IG% - Immature Granulocytes (promyelocytes, myelocytes and metamyelocytes) > 1% indicates that a LEFT SHIFT is Present. Performed By: #### L 501.9985, L3400.4700, L506.0400, L100.0100, L3100.5475, L500.4050, L501.9520 #### [facility] [address] [place], [address] Lymphocytes/100 WBC (Bld) 30.3 % Normal 19-41 [facility] Comment on above: Performed By: #### L 501.9985, L3400.4700, L506.0400, L100.0100, L3100.5475, L500.4050, L501.9520 #### [facility] [address] [place], [address] MCH (RBC) [Entitic mass] 30.5 pg Normal 27.0-32.0 [facility] Comment on above: Performed By: #### L 501.9985, L3400.4700, L506.0400, L100.0100, L3100.5475, L500.4050, L501.9520 #### [facility] [address] [place], [address] MCHC (RBC) [Mass/Vol] 33.6 g/dL Normal 32-36 [facility] Comment on above: Performed By: #### L 501.9985, L3400.4700, L506.0400, L100.0100, L3100.5475, L500.4050, L501.9520 #### [facility] [address] [place], [address] MCV (RBC) [Entitic vol] 90.8 fL Normal 81-99 [facility] Comment on above: Performed By: #### L 501.9985, L3400.4700, L506.0400, L100.0100, L3100.5475, L500.4050, L501.9520 #### [facility] [address] [place], [address] Monocytes/100 WBC (Bld) 5.9 % Normal 0-10 [facility] Comment on above: Performed By: #### L 501.9985, L3400.4700, L506.0400, L100.0100, L3100.5475, L500.4050, L501.9520 #### [facility] [address] [place], [address] Neutrophils/100 WBC (Bld) 61.9 % Normal 47-70 [facility] Comment on above: Performed By: #### L 501.9985, L3400.4700, L506.0400, L100.0100, L3100.5475, L500.4050, L501.9520 #### [facility] [address] [place], [address] Nucleated RBC (Bld) [#/Vol] 0 10*3/uL Normal 0-5 [facility] Comment on above: Performed By: #### L 501.9985, L3400.4700, L506.0400, L100.0100, L3100.5475, L500.4050, L501.9520 #### [facility] [address] [place], [address] Platelet mean volume (Bld) [Entitic vol] 9.2 fL Normal 6.2-12.0 [facility] Comment on above: Performed By: #### L 501.9985, L3400.4700, L506.0400, L100.0100, L3100.5475, L500.4050, L501.9520 #### [facility] [address] [place], [address] Platelets (Bld) [#/Vol] 286 10*3/uL Normal 150-450 [facility] Comment on above: Performed By: #### L 501.9985, L3400.4700, L506.0400, L100.0100, L3100.5475, L500.4050, L501.9520 #### [facility] [address] [place], [address] RBC (Bld) [#/Vol] 4.59 10*6/uL Normal 4.2-5.4 [facility] Comment on above: Performed By: #### L 501.9985, L3400.4700, L506.0400, L100.0100, L3100.5475, L500.4050, L501.9520 #### [facility] [address] [place], [address] RDW SD 39.8 fl Normal 35.1-43.9 [facility] Comment on above: Performed By: #### L 501.9985, L3400.4700, L506.0400, L100.0100, L3100.5475, L500.4050, L501.9520 #### [facility] [address] [place], [place], [address] WBC (Bld) [#/Vol] 6.7 10*3/uL Normal 4.4-11.0 [facility] Comment on above: Performed By: #### L 501.9985, L3400.4700, L506.0400, L100.0100, L3100.5475, L500.4050, L501.9520 #### [facility] [address] [place], [place], [id number] CRPon 02-18-2025 C-REACTIVE PROT 5.25 mg/L High 0.0-3.0 [facility] Comment on above: Performed By: #### L 501.9985, L3400.4700, L506.0400, L100.0100, L3100.5475, L500.4050, L501.9520 #### [facility] [address] [facility] [address] [place], [place], [id number] Carbon dioxide, total [Moles /volume] in Central venous bloodOrdered By: Sadiq Benítez on 02-18-2025 CO2 [Moles/Vol] 19.0 mmol/L Low 21.0-32.0 [facility] Chloride assayOrdered By: Stanislav Benítez on 02-18-2025 Chloride [Moles/Vol] 105 mmol/L 98-108 [facility] Comprehensive Metabolic Prof ilon 02-18-2025 Albumin [Mass/Vol] 4.3 g/dL Normal 3.5-5.0 [facility] Comment on above: Performed By: #### L 501.9985, L3400.4700, L506.0400, L100.0100, L3100.5475, L500.4050, L501.9520 #### [facility] [address] [place], [place], [id number] Albumin/Globulin [Mass ratio] 1.5 {ratio} Normal 0.9-2.4 [facility] Comment on above: Performed By: #### L 501.9985, L3400.4700, L506.0400, L100.0100, L3100.5475, L500.4050, L501.9520 #### [facility] [address] [place], [address] ALK PHOS 70 U/L Normal 35-104 [facility] Comment on above: Performed By: #### L 501.9985, L3400.4700, L506.0400, L100.0100, L3100.5475, L500.4050, L501.9520 #### [facility] [address] [place], [address] ALT [Catalytic activity/Vol] 22 U/L Normal <=34 [facility] Comment on above: Performed By: #### L 501.9985, L3400.4700, L506.0400, L100.0100, L3100.5475, L500.4050, L501.9520 #### [facility] [address] [place], [address] AST [Catalytic activity/Vol] 21 U/L Normal <=31 [facility] Comment on above: Performed By: #### L 501.9985, L3400.4700, L506.0400, L100.0100, L3100.5475, L500.4050, L501.9520 #### [facility] [address] [place], [address] Bilirubin [Mass/Vol] 0.28 mg/dL Normal 0.00-1.30 [facility] Comment on above: Performed By: #### L 501.9985, L3400.4700, L506.0400, L100.0100, L3100.5475, L500.4050, L501.9520 #### [facility] [address] [place], [address] BUN/CRE 15.0 RATIO Normal 10-20 [facility] Comment on above: Performed By: #### L 501.9985, L3400.4700, L506.0400, L100.0100, L3100.5475, L500.4050, L501.9520 #### [facility] [address] [place], [address] Calcium [Mass/Vol] 9.7 mg/dL Normal 7.6-11.0 [facility] Comment on above: Performed By: #### L 501.9985, L3400.4700, L506.0400, L100.0100, L3100.5475, L500.4050, L501.9520 #### [facility] [address] [place], [address] Chloride [Moles/Vol] 105 mmol/L Normal 98-108 [facility] Comment on above: Performed By: #### L 501.9985, L3400.4700, L506.0400, L100.0100, L3100.5475, L500.4050, L501.9520 #### [facility] [address] [place], [address] CO2 [Moles/Vol] 19.0 mmol/L Low 21.0-32.0 [facility] Comment on above: Performed By: #### L 501.9985, L3400.4700, L506.0400, L100.0100, L3100.5475, L500.4050, L501.9520 #### [facility] [address] [place], [address] Creatinine [Mass/Vol] 0.80 mg/dL Normal 0.70-1.20 [facility] Comment on above: Performed By: #### L 501.9985, L3400.4700, L506.0400, L100.0100, L3100.5475, L500.4050, L501.9520 #### [facility] [address] [place], [address] GAP 16 High 5-15 [facility] Comment on above: Performed By: #### L 501.9985, L3400.4700, L506.0400, L100.0100, L3100.5475, L500.4050, L501.9520 #### [facility] [address] [place], [address] GFR/1.73 sq M.predicted among non-blacks MDRD (S/P/Bld) [Vol rate/Area] 108 mL/min/{1.73_m2} Normal >60 [facility] Comment on above: Result Comment: mL/m in/1.73m2 CKD-EPI Creatinine Equation (2020) Performed By: #### L 501.9985, L3400.4700, L506.0400, L100.0100, L3100.5475, L500.4050, L501.9520 #### [facility] [address] [place], [address] Globulin (S) [Mass/Vol] 2.8 g/dL Normal 2.2-4.2 [facility] Comment on above: Performed By: #### L 501.9985, L3400.4700, L506.0400, L100.0100, L3100.5475, L500.4050, L501.9520 #### [facility] [address] [place], [address] Glucose [Mass/Vol] 84 mg/dL Normal 70-99 [facility] Comment on above: Performed By: #### L 501.9985, L3400.4700, L506.0400, L100.0100, L3100.5475, L500.4050, L501.9520 #### [facility] [address] [place], [address] Potassium [Moles/Vol] 3.6 mmol/L Normal 3.3-5.1 [facility] Comment on above: Performed By: #### L 501.9985, L3400.4700, L506.0400, L100.0100, L3100.5475, L500.4050, L501.9520 #### [facility] [address] [place], [place], [address] Sodium [Moles/Vol] 141 mmol/L Normal 133-145 [facility] Comment on above: Performed By: #### L 501.9985, L3400.4700, L506.0400, L100.0100, L3100.5475, L500.4050, L501.9520 #### [facility] [address] [place], [address] T PROT 7.1 g/dL Normal 5.9-8.4 [facility] Comment on above: Performed By: #### L 501.9985, L3400.4700, L506.0400, L100.0100, L3100.5475, L500.4050, L501.9520 #### [facility] [address] [place], [place], [id number] Urea nitrogen [Mass/Vol] 12 mg/dL Normal 4-19 [facility] Comment on above: Performed By: #### L 501.9985, L3400.4700, L506.0400, L100.0100, L3100.5475, L500.4050, L501.9520 #### [facility] [address] [place], [place], [id number] Eosinophil percentageOrdered By: Sadiq Benítez on 02-18-2025 Eosinophils/100 WBC (Bld) 1.2 % 0-5 [facility] Erythrocyte distribution wid th ratioOrdered By: Sadiq Benítez on 02-18-2025 Erythrocyte distribution width (RBC) [Ratio] 12.0 % 11.6-14.6 [facility] Erythrocyte distribution wid th standard deviationOrdered By: Sadiq Benítez on 02-18-2025 Erythrocyte distribution width (RBC) [Ratio] 39.8 fl 35.1-43.9 [facility] Glomerular filtration rate ( GFR) estimation/1.73 sq m using serum, plasma, or whole bOrdered By: Sadiq Benítez on 02-18-2025 GFR/1.73 sq M.predicted among non-blacks MDRD (S/P/Bld) [Vol rate/Area] 108 mL/min/{1.73_m2} >60 [facility] Comment on above: mL/min/1.73m2 CKD-EP I Creatinine Equation (2020) HIVon 02-18-2025 HIV Non-Reactive Normal Nonreactive [facility] Comment on above: Result Comment: Non- Reactive Reactive Repeatedly reactive samples must be confirmed according to CDC recommended confirmatory algorithms. The subresults for either HIVAG or AHIV can be used as an aid in the selection of the confirmation algorithm for reactive samples. Send out specimens with Reactive results to [facility] for confirmation. Order the HIV antibody detection and differentiation: [id number] Performed By: #### L 501.9985, L3400.4700, L506.0400, L100.0100, L3100.5475, L500.4050, L501.9520 #### [facility] [address] [place], [address] Hematocrit Auto (Bld) [Volum e fraction]Ordered By: Sadiq Benítez on 02-18-2025 Hematocrit (Bld) [Volume fraction] 41.7 % 37-47 [facility] Hemoglobin measurementOrdere d By: Sadiq Benítez on 02-18-2025 Hemoglobin (Bld) [Mass/Vol] 14.0 g/dL 12.0-15.0 [facility] IgEOrdered By: Sadiq Benítez on 02-18-2025 IgE 26 IU/mL 6-495 [facility] Immature granulocytes/100 WB C Auto (Bld)Ordered By: Sadiq Benítez on 02-18-2025 Immature granulocytes/100 WBC (Bld) 0.200 % 0.0-0.9 [facility] Comment on above: IG% - Immature Granu locytes (promyelocytes, myelocytes and metamyelocytes) > 1% indicates that a LEFT SHIFT is Present. L509.6001on 02-18-2025 CORTISOL 20.30 ug/dL High 6.02-18.40 [facility] Comment on above: Performed By: #### L 501.9985, L3400.4700, L506.0400, L100.0100, L3100.5475, L500.4050, L501.9520 #### [facility] [address] [place], [address] Laboratory - Chemistry and C hemistry - challengeOrdered By: Sadiq Benítez on 02-18-2025 AST [Catalytic activity/Vol] 21 U/L <32 [facility] MCV (mean corpuscular volume ) determinationOrdered By: Sadiq Benítez on 02-18-2025 MCV (RBC) [Entitic vol] 90.8 fL 81-99 [facility] Mean corpuscular hemoglobin (MCH) determinationOrdered By: Sadiq Benítez on 02-18-2025 MCH (RBC) [Entitic mass] 30.5 pg 27.0-32.0 [facility] Mean corpuscular hemoglobin concentration (MCHC) determinationOrdered By: Sadiq Benítez on 02-18-2025 MCHC (RBC) [Mass/Vol] 33.6 g/dL 32-36 [facility] Mean platelet volume determi nationOrdered By: Sadiq Benítez on 02-18-2025 Platelet mean volume (Bld) [Entitic vol] 9.2 fL 6.2-12.0 [facility] Monocyte percentageOrdered B y: Sadiq Benítez on 02-18-2025 Monocytes/100 WBC (Bld) 5.9 % 0-10 [facility] Neutrophil percentageOrdered By: Sadiq Benítez on 02-18-2025 Neutrophils/100 WBC (Bld) 61.9 % 47-70 [facility] No Panel InformationOrdered By: Sadiq Benítez on 02-18-2025 HIV (1&2) Antibody Non-Reactive Nonreactive [facility] [place] Comment on above: Non-ReactiveReactive Repeatedly reactive samples must be confirmed according to CDC recommended confirmatory algorithms. The subresults for either HIVAG or AHIV can be used as an aid in the selection of the confirmation algorithm for reactive samples.Send out specimens with Reactive results to [facility] for confirmation.Order the HIV antibody detection and differentiation: #[id number] Lyme Disease IgG Ab 30 kDa Band Absent . [facility] Lyme Disease IgG Ab 93 kDa Band Absent . [facility] Lyme Disease IgG [place] Interp Negative Negative [facility] Lyme Disease IgM Ab (Western Blot) Negative Negative [facility] Comment on above: Please Note: Lyme im munoblot alone is not recommended forthe diagnosis of Lyme disease. Current guidelines recommendthe use of a two-tiered approach to Lyme serology testingto improve the sensitivity and specificity of testing.[facility] [place] offers test code [id number] Lyme Disease Serology withReflex to aid in the diagnosis of Lyme Disease. Lyme Disease Western Blot Comments Comment . [facility] Comment on above: Per CDC criteria, th e Lyme IgG Immunoblot is interpreted aspositive if IgG-class antibodies are detected to 5 or moreB. burgdorferi proteins, and the Lyme IgM Immunoblot isinterpreted as positive if IgM-class antibodies aredetected to 2 or more B. burgdorferi proteins. Immunoblotpatterns not meeting these criteria should not beinterpreted as positive. Epitopes from certain B.burgdorferi proteins (e.g., p41) are conserved across otherbacteria, which may lead to the detection of IgM-and/or IgGclass antibodies on the Lyme disease immunoblots inpatients without Lyme disease. Immunoblot should only beordered on specimens that are positive or equivocal by anFDA-licensed Lyme disease antibody screening test (e.g.,EIA). Results of the Lyme IgM immunoblot should not beconsidered in patients with 30 or more days of symptoms. Tissue Transglutaminase IgG Ab 4 U/mL 0-5 [facility] Comment on above: Negative 0 - 5 Weak Positive 6 - 9 Positive >9 Nucleated red blood cell per centageOrdered By: Sadiq Benítez on 02-18-2025 Nucleated RBC/100 WBC (Bld) [Ratio] 0 % 0-5 [facility] Platelet countOrdered By: Stanislav Benítez on 02-18-2025 Platelets (Bld) [#/Vol] 286 10*3/uL 150-450 [facility] Potassium measurement (mass/ volume)Ordered By: Sadiq Benítez on 02-18-2025 Potassium (Unsp spec) [Mass/Vol] 3.6 mmol/L 3.3-5.1 [facility] RBC Auto (Bld) [#/Vol]Ordere d By: Sadiq Benítez on 02-18-2025 RBC (Bld) [#/Vol] 4.59 10*6/uL 4.2-5.4 [facility] Serum creatinine measurement (mass/volume)Ordered By: Sadiq Benítez on 02-18-2025 Creatinine [Mass/Vol] 0.80 mg/dL 0.70-1.20 [facility] Serum globulin measurementOr dered By: Sadiq Benítez on 02-18-2025 Globulin (S) [Mass/Vol] 2.8 g/dL 2.2-4.2 [facility] Serum glucose measurement (m ass/volume)Ordered By: Sadiq Benítez on 02-18-2025 Glucose [Mass/Vol] 84 mg/dL 70-99 [facility] Serum or plasma C reactive p rotein measurement (mass/volume)Ordered By: Sadiq Benítez on 02-18-2025 CRP [Mass/Vol] 5.25 mg/L High 0.0-3.0 [facility] Serum or plasma IgA measurem ent (mass/volume)Ordered By: Sadiq Benítez on 02-18-2025 IgA [Mass/Vol] 60 mg/dL Low 87-352 [facility] Serum or plasma IgG measurem ent (mass/volume)Ordered By: Sadiq Benítez on 02-18-2025 IgG [Mass/Vol] 882 mg/dL [phone] [facility] Serum or plasma alanine munson otransferase (ALT) measurementOrdered By: Sadiq Benítez on 02-18-2025 ALT [Catalytic activity/Vol] 22 U/L <35 [facility] Serum or plasma albumin amelia urement (mass/volume)Ordered By: Sadiq Benítez on 02-18-2025 Albumin [Mass/Vol] 4.3 g/dL 3.5-5.0 [facility] Serum or plasma albumin/glob ulin mass ratioOrdered By: Sadiq Benítez on 02-18-2025 Albumin/Globulin [Mass ratio] 1.5 {ratio} 0.9-2.4 [facility] Serum or plasma alkaline jia sphatase measurementOrdered By: Sadiq Benítez on 02-18-2025 ALP [Catalytic activity/Vol] 70 U/L 35-104 [facility] Serum or plasma calcium amelia urement (mass/volume)Ordered By: Sadiq Benítez on 02-18-2025 Calcium [Mass/Vol] 9.7 mg/dL 7.6-11.0 [facility] Serum or plasma cortisol christelle surement (mass/volume)Ordered By: Sadiq Benítez on 02-18-2025 Cortisol [Mass/Vol] 20.30 ug/dL High 6.02-18.40 [facility] Serum or plasma urea nitroge n measurement (mass/volume)Ordered By: Sadiq Benítez on 02-18-2025 Urea nitrogen [Mass/Vol] 12 mg/dL 4-19 [facility] Serum tissue transglutaminas e (tTG) IgA antibody assay (units/volume)Ordered By: Sadiq Benítez on 02-18-2025 tTG IgA Qn (S) <2 U/mL 0-3 [facility] Comment on above: Negative 0 - 3 Weak Positive 4 - 10 Positive >10 Tissue Transglutaminase (tTG) has been identified as the endomysial antigen. Studies have demonstr- ated that endomysial IgA antibodies have over 99% specificity for gluten sensitive enteropathy. Sodium levelOrdered By: Sadiq Benítez on 02-18-2025 Sodium [Moles/Vol] 141 mmol/L 133-145 [facility] Syphilis Antibodieson 2024 Syphilis Abs Non-Reactive Normal Nonreactive [facility] Comment on above: Performed By: #### L 501.9985, L3400.4700, L506.0400, L100.0100, L3100.5475, L500.4050, L501.9520 #### [facility] [address] [place], [place], [id number] Total proteinOrdered By: Selin Benítez on 02-18-2025 Protein [Mass/Vol] 7.1 g/dL 5.9-8.4 [facility] White blood cell (WBC) count Ordered By: Sadiq Benítez on 02-18-2025 WBC (Bld) [#/Vol] 6.7 10*3/uL 4.4-11.0 [facility] Thyroid Stim Immunoglobon THY STIM IMMUNO <0.10 Normal 0.00-0.55 [facility] Comment on above: Order Comment: Order Date: 12/30/24 Order Info: [id number] - TSIMM Result Comment: Perf ormed at: - [facility] [address] [id number] Clinical Support Tech: Taryn Barber MD, Phone: [phone] Performed By: #### L 501.9985, L3400.4700, L506.0400, L100.0100, L3100.5475, L500.4050, L501.9520 #### [facility] [address] [place], [address] ANTINUCLEAR ANTIBODIES DIREC Ton 12-31-2024 JACK,DIRECT Negative Normal Negative [facility] Comment on above: Order Comment: Order Date: 12/30/24 Order Info: 0270-1 - JACK Result Comment: Perf ormed at: - [facility] [address] [id number] Clinical Support Tech: Andrade David PhD, Phone: [phone] Performed By: #### L 501.9985, L3400.4700, L506.0400, L100.0100, L3100.5475, L500.4050, L501.9520 #### [facility] [address] [place], [place], [id number] Absolute lymphocyte countOrd ered By: Luisito Watkins on 12-30-2024 Lymphocytes Auto (Unsp spec) [#/Vol] 1.91 10*3/uL 0.83-4.51 [facility] Absolute neutrophil countOrd ered By: Luisito Watkins on 12-30-2024 Neutrophils (Bld) [#/Vol] 5.0 10*3/uL 2.0-7.7 [facility] Anion gap in Serum or Plasma Ordered By: Luisito Watkins on 12-30-2024 Anion gap [Moles/Vol] 13 mmol/L 5-15 [facility] [place] Automated lymphocyte count a s percentage of total leukocytesOrdered By: Luisito Watkins on 12-30-2024 Lymphocytes/100 WBC Auto (Unsp spec) 25.2 % 19-41 [facility] BUN/creatinine ratioOrdered By: Luisito Watkins on 12-30-2024 Urea nitrogen/Creatinine [Mass ratio] 22.0 mg/mg High 10-20 [facility] Basophil percentageOrdered B y: Luisito Watkins on 12-30-2024 Basophils/100 WBC (Bld) 0.5 % 0-1 [facility] Bilirubin, totalOrdered By: Luisito Watkins on 12-30-2024 Bilirubin [Mass/Vol] 0.21 mg/dL 0.00-1.30 [facility] CBC W/Diff, Automatedon 12-08 Absolute Lymph 1.91 X10 3/uL Normal 0.83-4.51 [facility] Comment on above: Order Comment: Order Date: 12/30/24 Order Info: 0184-1 - CBCD Performed By: #### L 501.9985, L3400.4700, L506.0400, L100.0100, L3100.5475, L500.4050, L501.9520 #### [facility] [address] [place], [place], [id number] Absolute Neut 5.0 X10 3/uL Normal 2.0-7.7 [facility] Comment on above: Order Comment: Order Date: 12/30/24 Order Info: 0184-1 - CBCD Performed By: #### L 501.9985, L3400.4700, L506.0400, L100.0100, L3100.5475, L500.4050, L501.9520 #### [facility] [address] [place], [address] Basophils/100 WBC (Bld) 0.5 % Normal 0-1 [facility] Comment on above: Order Comment: Order Date: 12/30/24 Order Info: 0184-1 - CBCD Performed By: #### L 501.9985, L3400.4700, L506.0400, L100.0100, L3100.5475, L500.4050, L501.9520 #### [facility] [address] [place], [address] Eosinophils/100 WBC (Bld) 1.3 % Normal 0-5 [facility] Comment on above: Order Comment: Order Date: 12/30/24 Order Info: 0184-1 - CBCD Performed By: #### L 501.9985, L3400.4700, L506.0400, L100.0100, L3100.5475, L500.4050, L501.9520 #### [facility] [address] [place], [place], [phone] Erythrocyte distribution width (RBC) [Ratio] 11.6 % Normal 11.6-14.6 [facility] Comment on above: Order Comment: Order Date: 12/30/24 Order Info: 0184-1 - CBCD Performed By: #### L 501.9985, L3400.4700, L506.0400, L100.0100, L3100.5475, L500.4050, L501.9520 #### [facility] [address] [place], [place], [phone] Hematocrit (Bld) [Volume fraction] 41.3 % Normal 37-47 [facility] Comment on above: Order Comment: Order Date: 12/30/24 Order Info: 0184-1 - CBCD Performed By: #### L 501.9985, L3400.4700, L506.0400, L100.0100, L3100.5475, L500.4050, L501.9520 #### [facility] [address] [place], [address] Hemoglobin (Bld) [Mass/Vol] 13.8 g/dL Normal 12.0-15.0 [facility] Comment on above: Order Comment: Order Date: 12/30/24 Order Info: 0184-1 - CBCD Performed By: #### L 501.9985, L3400.4700, L506.0400, L100.0100, L3100.5475, L500.4050, L501.9520 #### [facility] [address] [place], [place], [phone] IG% 0.400 Normal 0.0-0.9 [facility] Comment on above: Order Comment: Order Date: 12/30/24 Order Info: 0184-1 - CBCD Result Comment: IG% - Immature Granulocytes (promyelocytes, myelocytes and metamyelocytes) > 1% indicates that a LEFT SHIFT is Present. Performed By: #### L 501.9985, L3400.4700, L506.0400, L100.0100, L3100.5475, L500.4050, L501.9520 #### [facility] [address] [facility] [place], [address] Lymphocytes/100 WBC (Bld) 25.2 % Normal 19-41 [facility] Comment on above: Order Comment: Order Date: 12/30/24 Order Info: 0184-1 - CBCD Performed By: #### L 501.9985, L3400.4700, L506.0400, L100.0100, L3100.5475, L500.4050, L501.9520 #### [facility] [address] [facility] [place], [address] MCH (RBC) [Entitic mass] 30.7 pg Normal 27.0-32.0 [facility] Comment on above: Order Comment: Order Date: 12/30/24 Order Info: 0184-1 - CBCD Performed By: #### L 501.9985, L3400.4700, L506.0400, L100.0100, L3100.5475, L500.4050, L501.9520 #### [facility] [address] [facility] [place], [address] MCHC (RBC) [Mass/Vol] 33.4 g/dL Normal 32-36 [facility] Comment on above: Order Comment: Order Date: 12/30/24 Order Info: 0184-1 - CBCD Performed By: #### L 501.9985, L3400.4700, L506.0400, L100.0100, L3100.5475, L500.4050, L501.9520 #### [facility] [address] [place], [address] MCV (RBC) [Entitic vol] 91.8 fL Normal 81-99 [facility] Comment on above: Order Comment: Order Date: 12/30/24 Order Info: 0184-1 - CBCD Performed By: #### L 501.9985, L3400.4700, L506.0400, L100.0100, L3100.5475, L500.4050, L501.9520 #### [facility] [address] [place], [address] Monocytes/100 WBC (Bld) 6.1 % Normal 0-10 [facility] Comment on above: Order Comment: Order Date: 12/30/24 Order Info: 0184-1 - CBCD Performed By: #### L 501.9985, L3400.4700, L506.0400, L100.0100, L3100.5475, L500.4050, L501.9520 #### [facility] [address] [place], [address] Neutrophils/100 WBC (Bld) 66.5 % Normal 47-70 [facility] Comment on above: Order Comment: Order Date: 12/30/24 Order Info: 0184-1 - CBCD Performed By: #### L 501.9985, L3400.4700, L506.0400, L100.0100, L3100.5475, L500.4050, L501.9520 #### [facility] [address], [address] Nucleated RBC (Bld) [#/Vol] 0 10*3/uL Normal 0-5 [facility] Comment on above: Order Comment: Order Date: 12/30/24 Order Info: 0184-1 - CBCD Performed By: #### L 501.9985, L3400.4700, L506.0400, L100.0100, L3100.5475, L500.4050, L501.9520 #### [facility] [address] [place], [address] Platelet mean volume (Bld) [Entitic vol] 9.5 fL Normal 6.2-12.0 [facility] Comment on above: Order Comment: Order Date: 12/30/24 Order Info: 0184-1 - CBCD Performed By: #### L 501.9985, L3400.4700, L506.0400, L100.0100, L3100.5475, L500.4050, L501.9520 #### [facility] [address] [place], [address] Platelets (Bld) [#/Vol] 287 10*3/uL Normal 150-450 [facility] Comment on above: Order Comment: Order Date: 12/30/24 Order Info: 0184-1 - CBCD Performed By: #### L 501.9985, L3400.4700, L506.0400, L100.0100, L3100.5475, L500.4050, L501.9520 #### [facility] [address] [place], [address] RBC (Bld) [#/Vol] 4.50 10*6/uL Normal 4.2-5.4 [facility] Comment on above: Order Comment: Order Date: 12/30/24 Order Info: 0184-1 - CBCD Performed By: #### L 501.9985, L3400.4700, L506.0400, L100.0100, L3100.5475, L500.4050, L501.9520 #### [facility] [address] [place], [address] RDW SD 39.4 fl Normal 35.1-43.9 [facility] Comment on above: Order Comment: Order Date: 12/30/24 Order Info: 0184-1 - CBCD Performed By: #### L 501.9985, L3400.4700, L506.0400, L100.0100, L3100.5475, L500.4050, L501.9520 #### [facility] [address] [place], [address] WBC (Bld) [#/Vol] 7.6 10*3/uL Normal 4.4-11.0 [facility] Comment on above: Order Comment: Order Date: 12/30/24 Order Info: 0184-1 - CBCD Performed By: #### L 501.9985, L3400.4700, L506.0400, L100.0100, L3100.5475, L500.4050, L501.9520 #### [facility] [address] [place], [address] Carbon dioxide, total [Moles /volume] in Central venous bloodOrdered By: Luisito Watkins on 12-30-2024 CO2 [Moles/Vol] 17.9 mmol/L Low 21.0-32.0 [facility] Chloride assayOrdered By: Gigi Watkins on 12-30-2024 Chloride [Moles/Vol] 107 mmol/L 98-108 [facility] Comprehensive Metabolic Prof ilon 12-30-2024 Albumin [Mass/Vol] 4.2 g/dL Normal 3.5-5.0 [facility] Comment on above: Order Comment: Order Date: 12/30/24 Order Info: 0786-1 - CMP Order Info: 3016-3 - TSH Order Info: 3024-7 - T4F Performed By: #### L 501.9985, L3400.4700, L506.0400, L100.0100, L3100.5475, L500.4050, L501.9520 #### [facility] [address] [place], [address] Albumin/Globulin [Mass ratio] 1.5 {ratio} Normal 0.9-2.4 [facility] Comment on above: Order Comment: Order Date: 12/30/24 Order Info: 0786-1 - CMP Order Info: 3015-3 - TSH Order Info: 3024-7 - T4F Performed By: #### L 501.9985, L3400.4700, L506.0400, L100.0100, L3100.5475, L500.4050, L501.9520 #### [facility] [address] [place], [address] ALK PHOS 75 U/L Normal 35-104 [facility] Comment on above: Order Comment: Order Date: 12/30/24 Order Info: 785-1 - CMP Order Info: 3 - TSH Order Info: 3027 - T4F Performed By: #### L 501.9985, L3400.4700, L506.0400, L100.0100, L3100.5475, L500.4050, L501.9520 #### [facility] [place], [place], [address] ALT [Catalytic activity/Vol] 19 U/L Normal <=34 [facility] Comment on above: Order Comment: Order Date: 12/30/24 Order Info: 0786-1 - CMP Order Info: 3 - TSH Order Info: 3024-7 - T4F Performed By: #### L 501.9985, L3400.4700, L506.0400, L100.0100, L3100.5475, L500.4050, L501.9520 #### [facility] [address] [place], [address] AST [Catalytic activity/Vol] 17 U/L Normal <=31 [facility] Comment on above: Order Comment: Order Date: 12/30/24 Order Info: 0786-1 - CMP Order Info: 3 - TSH Order Info: 3024-7 - T4F Performed By: #### L 501.9985, L3400.4700, L506.0400, L100.0100, L3100.5475, L500.4050, L501.9520 #### [facility] [address] [place], [address] Bilirubin [Mass/Vol] 0.21 mg/dL Normal 0.00-1.30 [facility] Comment on above: Order Comment: Order Date: 12/30/24 Order Info: 0786-1 - CMP Order Info: 6-3 - TSH Order Info: 3024-7 - T4F Performed By: #### L 501.9985, L3400.4700, L506.0400, L100.0100, L3100.5475, L500.4050, L501.9520 #### [facility] [address] [place], [address] BUN/CRE 22.0 RATIO High 10-20 [facility] Comment on above: Order Comment: Order Date: 12/30/24 Order Info: 0786-1 - CMP Order Info: 3 - TSH Order Info: 3024-7 - T4F Performed By: #### L 501.9985, L3400.4700, L506.0400, L100.0100, L3100.5475, L500.4050, L501.9520 #### [facility] [address] [place], [address] Calcium [Mass/Vol] 9.2 mg/dL Normal 7.6-11.0 [facility] Comment on above: Order Comment: Order Date: 12/30/24 Order Info: 0786-1 - CMP Order Info: 3015-3 - TSH Order Info: 3024-7 - T4F Performed By: #### L 501.9985, L3400.4700, L506.0400, L100.0100, L3100.5475, L500.4050, L501.9520 #### [facility] [address] [place], [address] Chloride [Moles/Vol] 107 mmol/L Normal 98-108 [facility] Comment on above: Order Comment: Order Date: 12/30/24 Order Info: 0786-1 - CMP Order Info: 3 - TSH Order Info: 3024-7 - T4F Performed By: #### L 501.9985, L3400.4700, L506.0400, L100.0100, L3100.5475, L500.4050, L501.9520 #### [facility] [address] [place], [address] CO2 [Moles/Vol] 17.9 mmol/L Low 21.0-32.0 [facility] Comment on above: Order Comment: Order Date: 12/30/24 Order Info: 07-1 - CMP Order Info: 3 - TSH Order Info: 3027 - T4F Performed By: #### L 501.9985, L3400.4700, L506.0400, L100.0100, L3100.5475, L500.4050, L501.9520 #### [facility] [address] [place], [place], [id number] Creatinine [Mass/Vol] 0.82 mg/dL Normal 0.70-1.20 [facility] Comment on above: Order Comment: Order Date: 12/30/24 Order Info: 0786-1 - CMP Order Info: 3 - TSH Order Info: 30247 - T4F Performed By: #### L 501.9985, L3400.4700, L506.0400, L100.0100, L3100.5475, L500.4050, L501.9520 #### [facility] [address] [place], [address] GAP 13 Normal 5-15 [facility] Comment on above: Order Comment: Order Date: 12/30/24 Order Info: 0786-1 - CMP Order Info: 3 - TSH Order Info: 3024-7 - T4F Performed By: #### L 501.9985, L3400.4700, L506.0400, L100.0100, L3100.5475, L500.4050, L501.9520 #### [facility] [address] [place], [address] GFR/1.73 sq M.predicted among non-blacks MDRD (S/P/Bld) [Vol rate/Area] 104 mL/min/{1.73_m2} Normal >60 [facility] Comment on above: Order Comment: Order Date: 12/30/24 Order Info: 0786-1 - CMP Order Info: 6-3 - TSH Order Info: 302-7 - T4F Result Comment: mL/m in/1.73m2 CKD-EPI Creatinine Equation (2020) Performed By: #### L 501.9985, L3400.4700, L506.0400, L100.0100, L3100.5475, L500.4050, L501.9520 #### [facility] [address] [place], [address] Globulin (S) [Mass/Vol] 2.8 g/dL Normal 2.2-4.2 [facility] Comment on above: Order Comment: Order Date: 12/30/24 Order Info: 07-1 - CMP Order Info: 3 - TSH Order Info: 3024-7 - T4F Performed By: #### L 501.9985, L3400.4700, L506.0400, L100.0100, L3100.5475, L500.4050, L501.9520 #### [facility] [address] [place], [address] Glucose [Mass/Vol] 93 mg/dL Normal 70-99 [facility] Comment on above: Order Comment: Order Date: 12/30/24 Order Info: 07-1 - CMP Order Info: 3 - TSH Order Info: 3024-7 - T4F Performed By: #### L 501.9985, L3400.4700, L506.0400, L100.0100, L3100.5475, L500.4050, L501.9520 #### [facility] [address] [place], [address] Potassium [Moles/Vol] 4.2 mmol/L Normal 3.3-5.1 [facility] Comment on above: Order Comment: Order Date: 12/30/24 Order Info: 0786-1 - CMP Order Info: 3016-3 - TSH Order Info: 3024-7 - T4F Performed By: #### L 501.9985, L3400.4700, L506.0400, L100.0100, L3100.5475, L500.4050, L501.9520 #### [facility] [address] [place], [address] Sodium [Moles/Vol] 138 mmol/L Normal 133-145 [facility] Comment on above: Order Comment: Order Date: 12/30/24 Order Info: 0786-1 - CMP Order Info: 63 - TSH Order Info: 3024-7 - T4F Performed By: #### L 501.9985, L3400.4700, L506.0400, L100.0100, L3100.5475, L500.4050, L501.9520 #### [facility] [address] [place], [address] T PROT 7.0 g/dL Normal 5.9-8.4 [facility] Comment on above: Order Comment: Order Date: 12/30/24 Order Info: 0786-1 - CMP Order Info: 3016-3 - TSH Order Info: 3024-7 - T4F Performed By: #### L 501.9985, L3400.4700, L506.0400, L100.0100, L3100.5475, L500.4050, L501.9520 #### [facility] [address] [place], [address] Urea nitrogen [Mass/Vol] 18 mg/dL Normal 4-19 [facility] Comment on above: Order Comment: Order Date: 12/30/24 Order Info: 0786-1 - CMP Order Info: 3016-3 - TSH Order Info: 3024-7 - T4F Performed By: #### L 501.9985, L3400.4700, L506.0400, L100.0100, L3100.5475, L500.4050, L501.9520 #### [facility] [address] [place], [address] Eosinophil percentageOrdered By: Luisito Watkins on 12-30-2024 Eosinophils/100 WBC (Bld) 1.3 % 0-5 [facility] Erythrocyte distribution wid th ratioOrdered By: [facility] on 12-30-2024 Erythrocyte distribution width (RBC) [Ratio] 11.6 % 11.6-14.6 [facility] Erythrocyte distribution wid th standard deviationOrdered By: [facility] on 12-30-2024 Erythrocyte distribution width (RBC) [Ratio] 39.4 fl 35.1-43.9 [facility] Glomerular filtration rate ( GFR) estimation/1.73 sq m using serum, plasma, or whole bOrdered By: [facility] on 12-30-2024 GFR/1.73 sq M.predicted among non-blacks MDRD (S/P/Bld) [Vol rate/Area] 104 mL/min/{1.73_m2} >60 [facility] Comment on above: mL/min/1.73m2 CKD-EP I Creatinine Equation (2020) Hematocrit Auto (Bld) [Volum e fraction]Ordered By: [facility] on 12-30-2024 Hematocrit (Bld) [Volume fraction] 41.3 % 37-47 [facility] Hemoglobin A1con 12-30-2024 HbA1c (Bld) [Mass fraction] 5.5 % Normal <=5.6 [facility] Comment on above: Order Comment: Order Date: 12/30/24 Order Info: 4548-4 - A1C Result Comment: Norm al < 5.7 % Prediabetic 5.7 - 6.4 % Diabetic >or= 6.5 % Please note range changes. Performed By: #### L 501.9985, L3400.4700, L506.0400, L100.0100, L3100.5475, L500.4050, L501.9520 #### [facility] [address] [place], [address] Hemoglobin A1c percentageOrd ered By: Luisito Watkins on 12-30-2024 HbA1c (Bld) [Mass fraction] 5.5 % <5.7 [facility] Comment on above: Normal < 5.7 % Predi abetic 5.7 - 6.4 % Diabetic >or= 6.5 % Please note range changes. Hemoglobin measurementOrdere d By: Luisito Watkins on 12-30-2024 Hemoglobin (Bld) [Mass/Vol] 13.8 g/dL 12.0-15.0 [facility] Immature granulocytes/100 WB C Auto (Bld)Ordered By: Luisito Watkins on 12-30-2024 Immature granulocytes/100 WBC (Bld) 0.400 % 0.0-0.9 [facility] Comment on above: IG% - Immature Granu locytes (promyelocytes, myelocytes and metamyelocytes) > 1% indicates that a LEFT SHIFT is Present. Laboratory - Chemistry and C hemistry - challengeOrdered By: Luisito Watkins on 12-30-2024 AST [Catalytic activity/Vol] 17 U/L <32 [facility] MCV (mean corpuscular volume ) determinationOrdered By: Luisito Watkins on 12-30-2024 MCV (RBC) [Entitic vol] 91.8 fL 81-99 [facility] Mean corpuscular hemoglobin (MCH) determinationOrdered By: Luisito Watkins on 12-30-2024 MCH (RBC) [Entitic mass] 30.7 pg 27.0-32.0 [facility] Mean corpuscular hemoglobin concentration (MCHC) determinationOrdered By: Luisito Watkins on 12-30-2024 MCHC (RBC) [Mass/Vol] 33.4 g/dL 32-36 [facility] Mean platelet volume determi nationOrdered By: Luisito Watkins on 12-30-2024 Platelet mean volume (Bld) [Entitic vol] 9.5 fL 6.2-12.0 [facility] Monocyte percentageOrdered B y: Luisito Watkins on 12-30-2024 Monocytes/100 WBC (Bld) 6.1 % 0-10 [facility] Neutrophil percentageOrdered By: Luisito Watkins on 12-30-2024 Neutrophils/100 WBC (Bld) 66.5 % 47-70 [facility] Nucleated red blood cell per centageOrdered By: Luisito Watkins on 12-30-2024 Nucleated RBC/100 WBC (Bld) [Ratio] 0 % 0-5 [facility] Platelet countOrdered By: Gigi Watkins on 12-30-2024 Platelets (Bld) [#/Vol] 287 10*3/uL 150-450 [facility] Potassium measurement (mass/ volume)Ordered By: Luisito Watkins on 12-30-2024 Potassium (Unsp spec) [Mass/Vol] 4.2 mmol/L 3.3-5.1 [facility] RBC Auto (Bld) [#/Vol]Ordere d By: Luisito Watkins on 12-30-2024 RBC (Bld) [#/Vol] 4.50 10*6/uL 4.2-5.4 [facility] Serum creatinine measurement (mass/volume)Ordered By: Luisito Watkins on 12-30-2024 Creatinine [Mass/Vol] 0.82 mg/dL 0.70-1.20 [facility] Serum globulin measurementOr dered By: Luisito Watkins on 12-30-2024 Globulin (S) [Mass/Vol] 2.8 g/dL 2.2-4.2 [facility] Serum glucose measurement (m ass/volume)Ordered By: Lusiito Watkins on 12-30-2024 Glucose [Mass/Vol] 93 mg/dL 70-99 [facility] Serum or plasma alanine munson otransferase (ALT) measurementOrdered By: Luisito Watkins on 12-30-2024 ALT [Catalytic activity/Vol] 19 U/L <35 [facility] Serum or plasma albumin amelia urement (mass/volume)Ordered By: Luisito Watkins on 12-30-2024 Albumin [Mass/Vol] 4.2 g/dL 3.5-5.0 [facility] Serum or plasma albumin/glob ulin mass ratioOrdered By: Luisito Watkins on 12-30-2024 Albumin/Globulin [Mass ratio] 1.5 {ratio} 0.9-2.4 [facility] Serum or plasma alkaline jia sphatase measurementOrdered By: Luisito June on 12-30-2024 ALP [Catalytic activity/Vol] 75 U/L 35-104 [facility] Serum or plasma calcium amelia urement (mass/volume)Ordered By: Luisito Holderke on 12-30-2024 Calcium [Mass/Vol] 9.2 mg/dL 7.6-11.0 [facility] Serum or plasma urea nitroge n measurement (mass/volume)Ordered By: Luisito Watkins on 12-30-2024 Urea nitrogen [Mass/Vol] 18 mg/dL 4-19 [facility] Sodium levelOrdered By: Parul christy June on 12-30-2024 Sodium [Moles/Vol] 138 mmol/L 133-145 [facility] T4 Free Directon 12-30-2024 T4 FREE DIRECT 1.00 ng/dL Normal 0.76-1.46 [facility] Comment on above: Order Comment: Order Date: 12/30/24 Order Info: [id number] - CMP Order Info: 3016-3 - TSH Order Info: 3024-7 - T4F Performed By: #### L 501.9985, L3400.4700, L506.0400, L100.0100, L3100.5475, L500.4050, L501.9520 #### [facility] [place], [address] T4 freeOrdered By: Luisito barney on 12-30-2024 Free T4 [Mass/Vol] 1.00 ng/dL 0.76-1.46 [facility] TSH DL <= 0.005 mIU/L QnOrde red By: Luisito Watkins on 12-30-2024 TSH Qn 1.630 uIU/mL 0.300-4.200 [facility] Thyroid Stim Hormone (TSH)on 12-30-2024 TSH 1.630 uIU/mL Normal 0.300-4.200 [facility] Comment on above: Order Comment: Order Date: 12/30/24 Order Info: [id number] - CMP Order Info: 3016-3 - TSH Order Info: 3024-7 - T4F Performed By: #### L 501.9985, L3400.4700, L506.0400, L100.0100, L3100.5475, L500.4050, L501.9520 #### [facility] [address] [place], [address] Thyroid stimulating immunogl obulins detectionOrdered By: Luisito Watkins on 12-30-2024 Thyroid stimulating immunoglobulins Ql (S) <0.10 IU/L 0.00-0.55 [facility] Comment on above: Performed at: - L [address] [id number] Director: Taryn Barber MD, Phone: [phone] Total proteinOrdered By: Verónica Watkins on 12-30-2024 Protein [Mass/Vol] 7.0 g/dL 5.9-8.4 [facility] Vitamin D,25 Hydroxyon 12-30 Vitamin D 25-OH 40.4 ng/mL Normal 30-100 [facility] Comment on above: Order Comment: Order Date: 12/30/24 Order Info: [id number] - A1C Result Comment: Brie min D Status Deficiency: <20 ng/mL (50nmol/L) Insufficiency: 20-30 ng/mL (50-75 nmol/L) Sufficiency: 30-100 ng/mL (75-250 nmol/L) Toxicity: >100 ng/mL (>250 nmol/L) Performed By: #### L 501.9985, L3400.4700, L506.0400, L100.0100, L3100.5475, L500.4050, L501.9520 #### [facility] [address] [place], [place], [id number] White blood cell (WBC) count Ordered By: Luisito Watkins on 12-30-2024 WBC (Bld) [#/Vol] 7.6 10*3/uL 4.4-11.0 [facility] Ankle min 3 Viewson 0530-20 25 Ankle min 3 Views [facility] Imaging Services [address] [place] [address] Ankle min 3 Views MR#: [id number] Acct: [id number] Name: CHEYENNE HERNANDEZ Rep #: [id number] : 2005 F 19 From: Gilbert Galo MD PCP: Care Physician,No Primary Status: REG ER Study: Ankle min 3 Views Date of Exam: 12/05/24 Exam# [id number] Ordering Dr: Aditya Randhawa DO PROCEDURE: ANKLE MIN 3 VIEWS 12/05/2024 REASON FOR EXAM: INJURY TECHNIQUE: 3 views of the left ankle COMPARISON: None available FINDINGS: No fracture or dislocation. Joint spaces appear within limits. Lateral ankle soft tissue swelling. RAD/Ankle min 3 Views IMPRESSION: No fracture or dislocation. Joint spaces appear within limits. Lateral ankle soft tissue swelling. If symptoms persist, may follow-up with repeat imaging in 7-10 days as warranted. Reading Location: [facility] CC: Dr. 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 Normal [facility] Emergency Department Summary on 12-05-2024 Emergency Department Summary [facility] Medical Records Department [address] [place] [id number] Emergency Department Summary 12/05/24 MR#: [id number] Acct: [id number] Name: CHEYENNE HERNANDEZ Rep #: [id number] : 2005 19 From: Aditya Herron PCP: Care Physician,No Primary Status:[facility] ER Location: ED HPI History of Present Illness Chief Complaint: Lower Extremity Injury Informant: patient and parent Narrative Narrative: Here with mother left ankle injury 2 hours ago. The workshop when she excellently kicked something. No other injuries. Left foot pain for last 5 years followed by specialist in [place]. She had osteotomy this past July. Pain with ambulation. No medication taken prior arrival. No allergies to medications. [facility] Medical History Heart murmur IBS (irritable bowel syndrome) Hypoglycemia Patellar maltracking Home Medications ???Medication ???Instructions ???Recorded ???Last Taken ???Type drospirenone 3 mg-ethinyl 1 ea PO DAILY 08/07/20 Unknown His tory estradiol 0.02 mg tablet multivitamin 1 tab PO DAILY 02/06/23 Unknown Hi story Allergy/AdvReac Type Severity Reaction Status Date / Time adhesive tape Allergy Mild Rash Verified 12/05/24 02:17 Surgical History Status post left foot surgery S/P left knee arthroscopy H/O rhinoplasty Social History Smoking Status: Never smoker ROS ROS ED Constitutional Constitutional ED: Denies fever(s) Gastrointestinal Gastrointestinal: Denies vomiting Musculoskeletal Musculoskeletal: Reports other Details: Left ankle injury. Integumentary Reports Abrasions; Denies rash or wounds Neurologic Neurologic: Denies weakness EXAM Physical Exam Const Vital Signs: 12/05/24 02:17 12/05/24 04:08 Temperature 98.4 F 98.3 F Temperature Source Oral Pulse Rate 113 H 68 Respiratory Rate 18 15 Blood Pressure 143/89 H 129/74 H Blood Pressure Mean 107 92 Pulse Ox 100 99 Oxygen Delivery Method Room Air Positive well nourished and well developed General Appearance ED: well developed HEENT normocephalic and atraumatic Eyes General Eye ED: Yes normal appearance of both eyes Neck full ROM Resp normal respiratory effort and normal air movement Cardio regular rhythm Rate: tachycardic GI soft to palpation Extremity Extremity Narrative: Left lower extremity no knee tenderness. No swelling slight ecchymosis lateral malleolus small abrasion noted with dried blood. There was dorsal foot healed scar area of the first metatarsal. Neuro oriented x3 Skin Skin Narrative: See above MDM MDM MDM Narrative Medical decision making narrative: Interventions / MDM: Differential diagnosis: Contusion Diagnosis considered but do not suspect: Fracture x-ray negative. My EKG interpretation: N/A Imaging independently reviewed and interpreted by myself: Left ankle x-ray 3 views: No fracture noted soft tissue swelling. External documents reviewed: N/A Test considered but not ordered:N/A ED course: Ice the injury the ankle. Ice was placed Motrin ordered. X-ray ankle for further evaluation. X-ray negative. Bon wrap Aircast provided mother has crutches in the car. Discussed continued NSAIDs as needed with outpatient follow-up. All questions were answered. Re-evaluation: stable Disposition discussed with patient/family/signi ficant other: Patient and mother Case discussed with consulting clinician: N/A This note was generated with [employer] dictation software. It may contain incorrect words, spelling, and punctuation that were not noted in checking the note before signing. Radiography Diagnostic Testing: Clinical Impression(s) from Imaging Studies Ankle X-Ray 12/05/24 03:10 IMPRESSION: No fracture or dislocation. Joint spaces appear within limits. Lateral ankle soft tissue swelling. If symptoms persist, may follow-up with repeat imaging in 7-10 days as warranted. Reading Location: [facility] Discharge Plan Triage Chief Complaint: Lower Extremity Injury ED Provider: Aditya Randhawa Dx/Rx/DC Orders Clinical Impression: Contusion of ankle, left, Injury of ankle, left Instructions: ED Soft Tissue Contusion Prescriptions: No Action multivitamin Tablet 1 tab PO DAILY drospirenone-ethinyl estradiol 1 EACH tablet 1 ea PO DAILY Primary Care Provider: Care Physician,No Primary Referrals: Care Physician,No Primary [Primary Care Provider] - Activity Restrictions/Additio nal Instructions: Ankle x-ray negative for fracture. Bon wrap Aircast to support. Use your crutches as needed. (more content not included)... Normal [facility] EMGon 11-21-2024 Mirna Navarro MD 11/21/2024 9:27 AM EMG Date/Time: 11/21/2024 9:25 AM Performed by: Mirna Navarro MD Authorized by: Mirna Navarro MD Verbal consent: obtained Consent given by: patient Time out: Immediately prior to procedure a "time out" was called to verify the correct patient, procedure, equipment, network support administrator and site/side marked as required. Patient tolerance: Patient tolerated the procedure well with no immediate complications NATUS EMG [facility] COVID-19, MOLECULARon 2024 SARS-CoV-2 (COVID-19) Ab IA Ql Not detected Normal Not Detected [facility] Comment on above: Result Comment: Test ing was performed using the Apliiq ID NOW COVID-19 assay on the ID NOW platform. This test has not been approved for use in asymptomatic patients and its performance in this patient population has not been evaluated. Negative results do not rule out the presence of SARS-CoV-2/COVID-19. COVID-19, Molecularon 2024 SARS-CoV-2 (COVID-19) RdRp gene CHINMAY+probe Ql (Resp) Not detected Not Detected [facility] Comment on above: Testing was performe d using the Fernandez ID NOW COVID-19 assay on the ID NOW platform. This test has not been approved for use in asymptomatic patients and its performance in this patient population has not been evaluated. Negative results do not rule out the presence of SARS-CoV-2/COVID-19. POC INFLUENZA A/B MOLECULARo n 08-23-2024 POC INFLUENZA A, MOLECULAR Negative Normal Negative [facility] POC INFLUENZA B, MOLECULAR Positive Abnormal Negative [facility] POC Influenza A/B, Molecular on 08-23-2024 FLUAV RNA CHINMAY+probe Ql (Unsp spec) Negative Negative [facility] FLUBV RNA CHINMAY+probe Ql (Unsp spec) Positive Abnormal Negative [facility] Interpretation and review of laboratory results Abnormal [facility] POC Strep A - Molecularon Interpretation and review of laboratory results Normal [facility] S. pyogenes Ag Ql (Throat) Negative Negative [facility] SARS-CoV-2 (COVID-19) RdRp g simran CHINMAY+probe Ql (Resp)on 08-23-2024 Interpretation and review of laboratory results Normal [facility] 25(OH)D3 [facility] 2023 25-hydroxyvitamin D3 [Mass/Vol] 28.3 ng/mL Low 31.0-80.0 [facility] Comment on above: Order Comment: Madisyni jaja Type: BLOOD SPECIMEN Ordering Facility: [facility] Address: [address] [place] [address] Result Comment: Clas sification of 25 [place] Vitamin D status: Deficiency/Insufficiency: < or = 30 ng/ml. Sufficiency/Optimal Levels: 31-80 ng/mL Toxicity: > 100 ng/mL. Test performed by chemiluminescent immunoassay. Performed By: #### 1 989-3 #### [facility] CLIA [id number] [address] [place], [place] [address] [place] [address] [place] CBC panel Auto (Bld)on 07-07 Erythrocyte distribution width (RBC) [Ratio] 12.1 % 11.5 - 15.0 % [facility] Hematocrit (Bld) [Volume fraction] 41.5 % 36.0 - 46.0 % [facility] Hemoglobin (Bld) [Mass/Vol] 14.0 g/dL 11.5 - 15.5 g/dL [facility] Interpretation and review of laboratory results Abnormal [facility] MCH (RBC) [Entitic mass] 30.8 pg 26.0 - 34.0 pg [facility] MCHC (RBC) [Mass/Vol] 33.7 g/dL 30.5 - 36.0 g/dL [facility] MCV (RBC) [Entitic vol] 91.2 fL 80.0 - 100.0 fL [facility] Nucleated RBC (Bld) [#/Vol] NINF [facility] Platelet mean volume (Bld) [Entitic vol] 8.9 fL Low 9.0 - 12.7 fL [facility] Platelets (Bld) [#/Vol] 291 10*3/uL [facility] RBC (Bld) [#/Vol] 4.55 10*6/uL 3.90 - 5.2 0 m/uL [facility] WBC (Bld) [#/Vol] 7.03 10*3/uL [facility] Erythrocyte distribution width (RBC) [Ratio] 12.1 % Normal 11.5-15.0 [facility] Comment on above: Order Comment: Speci men Type: BLOOD SPECIMEN Ordering Facility: [facility] Address: [address] [place] [address] Performed By: #### 5 8410-2 #### [id number] [address] [place] [address] [place] Hematocrit (Bld) [Volume fraction] 41.5 % Normal 36.0-46.0 [facility] Comment on above: Order Comment: Speci men Type: BLOOD SPECIMEN Ordering Facility: [facility] Address: [address] [place] [address] Performed By: #### 5 8410-2 #### [facility] CLIA [id number] [address] [place] [address] [place] Hemoglobin (Bld) [Mass/Vol] 14.0 g/dL Normal 11.5-15.5 [facility] Comment on above: Order Comment: Speci men Type: BLOOD SPECIMEN Ordering Facility: [facility] Address: [address] [place] [address] Performed By: #### 5 8410-2 #### [facility] CLIA [id number] [address] [place] [address] [place] MCH (RBC) [Entitic mass] 30.8 pg Normal 26.0-34.0 [facility] Comment on above: Order Comment: Speci men Type: BLOOD SPECIMEN Ordering Facility: [facility] Address: [address] [place] [address] Performed By: #### 5 8410-2 #### [facility] [id number] [address] [place] [address] [place] MCHC (RBC) [Mass/Vol] 33.7 g/dL Normal 30.5-36.[address] [facility] Comment on above: Order Comment: Speci men Type: BLOOD SPECIMEN Ordering Facility: [facility] Address: [address] [place] [address] Performed By: #### 5 8410-2 #### [facility] [id number] [address] [place] [address] [place] MCV (RBC) [Entitic vol] 91.2 fL Normal 80.0-100.0 C [facility] Comment on above: Order Comment: Speci men Type: BLOOD SPECIMEN Ordering Facility: [facility] Address: [address] [place] [address] Performed By: #### 5 8410-2 #### [facility] [id number] [address] [place] [address] [place] Nucleated RBC (Bld) [#/Vol] 10*3/uL Normal <0.01 [facility] Comment on above: Order Comment: Speci men Type: BLOOD SPECIMEN Ordering Facility: [facility] Address: [address] [place] [address] Performed By: #### 5 8410-2 #### [facility] CLIA [id number] [address] [place] [address] [place] Platelet mean volume (Bld) [Entitic vol] 8.9 fL Low 9.0-12.7 [facility] Comment on above: Order Comment: Speci men Type: BLOOD SPECIMEN Ordering Facility: [facility] Address: [address] [place] [address] Performed By: #### 5 8410-2 #### [facility] CLIA [id number] [address] [place] [address] [place] Platelets (Bld) [#/Vol] 291 10*3/uL Normal 150-400 [facility] Comment on above: Order Comment: Speci men Type: BLOOD SPECIMEN Ordering Facility: [facility] Address: [address] [place] [address] Performed By: #### 5 8410-2 #### [facility] CLIA [id number] [address] [place] [address] [place] RBC (Bld) [#/Vol] 4.55 10*6/uL Normal 3.90-5.20 [facility] Comment on above: Order Comment: Speci men Type: BLOOD SPECIMEN Ordering Facility: [facility] Address: [address] [place] [address] Performed By: #### 5 8410-2 #### [facility] CLIA [id number] [address] [place] [address] [place] WBC (Bld) [#/Vol] 7.03 10*3/uL Normal 3.70-11.00 [facility] Comment on above: Order Comment: Speci men Type: BLOOD SPECIMEN Ordering Facility: [facility] Address: [address] [place] [address] Performed By: #### 5 8410-2 #### [facility] CITLALY [id number] [address] [place] [address] [place] CNOVon 07-07-2024 CNOV Office Visit (OBGYWM) MUMTAZ HERNANDEZNADIRA Bobo ([id number]) 1 F Date Time Provider Department 07/07/24 8:15 AM DURAN EVANS OBGYWKirby During your visit today, we recorded the following information about you: Blood pressure Weight Height Last Period 120/74 91.6 kg 1.702 m 07/06/24 Duran Evans APRN.RENT COLLECTOR 07/07/2024 8:23 AM Signed Cheyenne is a 18 year old who presents for an annual gynecologic exam with complaints, fatigue . Presents: alone Cycles every month, flow lasting 3-4 days Contraception: NuvaRing HPV vaccine: 1 dose 2018 Last pap smear: never History of abnormal pap: N/A Bothersome pelvic pain: No Sexually Active: Yes, monogamous relationship OB History T0 L0 SAB0 IAB0 Ectopic0 Multiple0 Live Births0 Women Nurse History LMP: 07/06/2024, IUD Age at Menarche: 11 Age at First : Age at Menopause: Women Nurse History Comments: Sexual Activity: Yes; Male; Nuvaring Contraception: Inserts Menstrual Tracking History Flowsheet Row Office Visit from 07/07/2024 in OB/Gynecology Period Cycle (Days) 25 Period Duration (Days) 4 Menstrual Flow Moderate PAST MEDICAL HISTORY Diagnosis Date NEGATIVE MEDICAL HISTORY PAST SURGICAL HISTORY Procedure Laterality Date FOOT SURGERY HX 11/2022 IUD REMOVAL 11/30/2023 KNEE SURGERY HX Left 09/2022 RHINOPLASTY 05/2021 FAMILY HISTORY Problem Relation Age of Onset Asthma Brother Stroke Maternal Grandmother Cancer Maternal Grandmother SOCIAL HISTORY Social History Tobacco Use Smoking status: Never Smokeless tobacco: Never Vaping Use Vaping status: Some Days Substances: Nicotine Substance Use Topics Alcohol use: Yes Drug use: Never REVIEW OF SYSTEMS Abdomen: No bloating, early satiety, indigestion, or increased flatulence. No abdominal pain, nausea, vomiting, diarrhea, or constipation. +hemorrhoids Bladder: No dysuria, gross hematuria, urinary frequency, urinary urgency, or incontinence. Breast: No breast lumps, nipple d/c, overlying skin changes, redness or skin retraction. Allergies and current medication updated:Yes SENSITIVE EXAM: Sensitive exam declined. Discussed rationale and impact on treatment. EXAM: BP 120/74 Ht 5' 7" (1.70m) Wt 202 lb (91.6kg) LMP 07/06/2024 BMI 31.63 kg/(m2). GENERAL: pleasant, in no apparent distress HEENT: Normocephalic, atraumatic, mucus membranes moist, and no lesions BREAST: deferred CHEST: Normal inspiratory effort NEURO: alert and oriented x3,exam grossly non-focal EXTREMITIES: normal ASSESSMENT/PLAN: 1) Health maintenance: - Declines exam today Pap starting at the age of 21. Safe sex practices reviewed. Self breast awareness encouraged. Nutrition, exercise, and routine health maintenance exams reviewed. Smoking cessation encouraged and resources provided. HPV vaccine received 1 dose, discussed remaining doses. 2) Contraception: Nuva Ring. No history of migraines with aura, VTE history or clotting disorder, hypertension, or liver issues. Vapes - reviewed increased risk and recommend cessation. 3) STD screening: Declined STD check. 4) Follow up one year or sooner as needed. Malaise and fatigue - ICD9: 780.79, ICD10: R53.81, R53.83 - COMPLETE BLOOD COUNT - COMPREHENSIVE METABOLIC PANEL - VITAMIN D 25 HYDROXY - HEMOGLOBIN A1C - GLUCOSE, FASTING - INSULIN ASSAY BLOOD - THYROID STIMULATING HORMONE - T4 FREE/FREE THYROXINE JEOVANY Flores Emily, APRN.CNP 07/07/2024 8:14 AM Addendum A 3-dose schedule is recommended for people who get the first dose on or after their 15th birthday, and for people with certain immunocompromising conditions. In a 3-dose series, the second dose should be given 1-2 months after the first dose, and the third dose should be given 6 months after the first dose (0, 1-2, 6-month schedule). The minimum intervals are 4 weeks between the first and second dose, 12 weeks between the second and third doses, and 5 months between the first and third doses. If a vaccine dose is administered after a shorter interval, it should be re-administered after another minimum interval has elapsed since the most recent dose. If the vaccination schedule is interrupted, vaccine doses do not need to be repeated (no maximum interval). [facility] Smoking Cessation [facility] The [facility] Smoking Cessation Program is a comprehensive, multifaceted program that can be tailored to your individual needs. We offer a variety of services designed to help you throughout the process, including office visits, distance health visits (virtual or telephone), and the eCoach program or pharmacy consultations. To schedule, call [phone] Appointments: An office visit: This is a one-on-one approach where you go to an office and meet with the provider to discuss your options for quitting. Distance hea (more content not included)... Normal [facility] Comprehensive metabolic 2000 panelOrdered By: Kasey Aldrich on 07-07-2024 Albumin [Mass/Vol] 4.3 g/dL 3.9 - 4.9 g/dL [facility] ALP [Catalytic activity/Vol] 66 U/L 34 - 123 U/L [facility] ALT [Catalytic activity/Vol] 15 U/L 7 - 38 U/L [facility] Anion gap [Moles/Vol] 13 mmol/L 8 - 15 mmol/L [facility] AST [Catalytic activity/Vol] 13 U/L 13 - 35 U/L [facility] Bilirubin [Mass/Vol] mg/dL Low 0.2 - 1.3 mg/dL [facility] Calcium [Mass/Vol] 9.4 mg/dL 8.5 - 10. 2 mg/dL [facility] Chloride [Moles/Vol] 105 mmol/L 98 - 107 mmol/L [facility] CO2 [Moles/Vol] 21 mmol/L Low 22 - 30 mmol/L [facility] Creatinine [Mass/Vol] 0.74 mg/dL 0.58 - 0.96 mg/dL [facility] GFR/1.73 sq M.predicted among non-blacks MDRD (S/P/Bld) [Vol rate/Area] 119 mL/min/{1.73_m2} - PINF [facility] Comment on above: Estimated Glomerular Filtration Rate (eGFR) is calculated using the 2020 CKD-EPI creatinine equation. This equation utilizes serum creatinine, sex, and age as parameters. The creatinine assay has traceable calibration to isotope dilution-mass spectrometry. Refer to KDIGO guidelines for clinical interpretation. In patients with unstable renal function, e.g. those with acute kidney injury, the eGFR may not accurately reflect actual GFR. Glucose [Mass/Vol] 93 mg/dL 74 - 99 mg/dL [facility] Comment on above: The [place] Diabete s Association (ADA) provides guidance for cutoff values for fasting glucose and random glucose. The ADA defines fasting as no caloric intake for at least 8 hours. Fasting plasma glucose results between 100 to 125 mg/dL indicate increased risk for diabetes (prediabetes). Fasting plasma glucose results greater than or equal to 126 mg/dL meet the criteria for diagnosis of diabetes. In the absence of unequivocal hyperglycemia, results should be confirmed by repeat testing. In a patient with classic symptoms of hyperglycemia or hyperglycemic crisis, random plasma glucose results greater than or equal to 200 mg/dL meet the criteria for diagnosis of diabetes. Reference: Standards of Medical Care in Diabetes 2016, [place] Diabetes Association. Diabetes Care. 2016.39(Suppl 1). Interpretation and review of laboratory results Abnormal [facility] Potassium [Moles/Vol] 4.0 mmol/L 3.7 - 5.1 mmol/L [facility] Protein [Mass/Vol] 7.0 g/dL 6.3 - 8.0 g/dL [facility] Sodium [Moles/Vol] 139 mmol/L 136 - 144 mmol/L [facility] Urea nitrogen [Mass/Vol] 15 mg/dL 7 - 21 mg/dL [facility] Comprehensive metabolic 2000 panelon 07-07-2024 Albumin [Mass/Vol] 4.3 g/dL Normal 3.9-4.9 [facility] Comment on above: Order Comment: Speci men Type: BLOOD SPECIMEN Ordering Facility: [facility] Address: [address] [place], [place] [address] [address] Performed By: #### 2 4323-8 #### [facility] [id number] [address] [place] [address] [place] ALP [Catalytic activity/Vol] 66 U/L Normal 34-123 [facility] Comment on above: Order Comment: Speci men Type: BLOOD SPECIMEN Ordering Facility: [facility] Address: [address] [place] [address] Performed By: #### 2 4323-8 #### [facility] CLIA [id number] [address] [place] [address] [place] ALT [Catalytic activity/Vol] 15 U/L Normal 7-38 [facility] Comment on above: Order Comment: Speci men Type: BLOOD SPECIMEN Ordering Facility: [facility] Address: [address] [place] [address] Performed By: #### 2 4323-8 #### [facility] CLIA [id number] [address] [place] [address] [place] Anion gap [Moles/Vol] 13 mmol/L Normal 8-[address] [facility] Comment on above: Order Comment: Speci men Type: BLOOD SPECIMEN Ordering Facility: [facility] Address: [address] [place] [address] Performed By: #### 2 4323-8 #### [facility] CLIA [id number] [address] [place] [address] [place] AST [Catalytic activity/Vol] 13 U/L Normal 13-35 [facility] Comment on above: Order Comment: Speci men Type: BLOOD SPECIMEN Ordering Facility: [facility] Address: [address] [place] [address] Performed By: #### 2 4323-8 #### [facility] CLIA [id number] [address] [place] [address] [place] Bilirubin [Mass/Vol] mg/dL Low 0.2-1.3 [facility] Comment on above: Order Comment: Speci men Type: BLOOD SPECIMEN Ordering Facility: [facility] Address: [address] [place] [address] Performed By: #### 2 4323-8 #### [facility] CLIA [id number] [address] [place] [address] [place] Calcium [Mass/Vol] 9.4 mg/dL Normal 8.5-10.2 [facility] Comment on above: Order Comment: Speci men Type: BLOOD SPECIMEN Ordering Facility: [facility] Address: [address] [facility] [address] Performed By: #### 2 4323-8 #### [facility] CLIA [id number] [address] [place] [address] [place] Chloride [Moles/Vol] 105 mmol/L Normal 98-107 [facility] Comment on above: Order Comment: Speci men Type: BLOOD SPECIMEN Ordering Facility: [facility] Address: [address] [place] [address] Performed By: #### 2 4323-8 #### [facility] CLIA [id number] [address] [place] [address] [place] CO2 [Moles/Vol] 21 mmol/L Low 22-30 [facility] Comment on above: Order Comment: Speci men Type: BLOOD SPECIMEN Ordering Facility: [facility] Address: [address] [place] [address] Performed By: #### 2 4323-8 #### [facility] CLIA [id number] [address] [place] [address] [place] Creatinine [Mass/Vol] 0.74 mg/dL Normal 0.58-0.[address] [facility] Comment on above: Order Comment: Speci men Type: BLOOD SPECIMEN Ordering Facility: [facility] Address: [address] [place] [address] Performed By: #### 2 4323-8 #### [facility] CLIA [id number] [address] [place], [place] [id number] [place] Creatinine and Glomerular filtration rate.predicted panel (S/P/Bld) 119 mL/min/1.73m??? Normal >=60 [facility] Comment on above: Order Comment: Conor wilkinson Type: BLOOD SPECIMEN Ordering Facility: [facility] Address: [address] [place] [address] Result Comment: Shannan mated Glomerular Filtration Rate (eGFR) is calculated using the 2020 CKD-EPI creatinine equation. This equation utilizes serum creatinine, sex, and age as parameters. The creatinine assay has traceable calibration to isotope dilution-mass spectrometry. Refer to KDIGO guidelines for clinical interpretation. In patients with unstable renal function, e.g. those with acute kidney injury, the eGFR may not accurately reflect actual GFR. Performed By: #### 2 4323-8 #### [id number] [address] [place] [address] [place] Glucose [Mass/Vol] 93 mg/dL Normal 74-99 [facility] Comment on above: Order Comment: Conor wilkinson Type: BLOOD SPECIMEN Ordering Facility: [facility] Address: [address] [place] [address] Result Comment: The [place] Diabetes Association (ADA) provides guidance for cutoff values for fasting glucose and random glucose. The ADA defines fasting as no caloric intake for at least 8 hours. Fasting plasma glucose results between 100 to 125 mg/dL indicate increased risk for diabetes (prediabetes). Fasting plasma glucose results greater than or equal to 126 mg/dL meet the criteria for diagnosis of diabetes. In the absence of unequivocal hyperglycemia, results should be confirmed by repeat testing. In a patient with classic symptoms of hyperglycemia or hyperglycemic crisis, random plasma glucose results greater than or equal to 200 mg/dL meet the criteria for diagnosis of diabetes. Reference: Standards of Medical Care in Diabetes 2016, [place] Diabetes Association. Diabetes Care. 2016.39(Suppl 1). Performed By: #### 2 4323-8 #### [id number] [address] [place] [address] [place] Potassium [Moles/Vol] 4.0 mmol/L Normal 3.7-5.[address] [facility] Comment on above: Order Comment: Speci men Type: BLOOD SPECIMEN Ordering Facility: [facility] Address: [address] [place] [address] Performed By: #### 2 4323-8 #### [facility] CLIA [id number] [address] [place] [address] [place] Protein [Mass/Vol] 7.0 g/dL Normal 6.3-8.0 [facility] Comment on above: Order Comment: Speci men Type: BLOOD SPECIMEN Ordering Facility: [facility] Address: [address] [place] [address] Performed By: #### 2 4323-8 #### [facility] CLIA [id number] [address] [place] [address] [place] Sodium [Moles/Vol] 139 mmol/L Normal 136-144 [facility] Comment on above: Order Comment: Speci men Type: BLOOD SPECIMEN Ordering Facility: [facility] Address: [address] [place] [address] Performed By: #### 2 4323-8 #### [facility] [id number] [address] [place] [address] [place] Urea nitrogen [Mass/Vol] 15 mg/dL Normal 7-21 [facility] Comment on above: Order Comment: Speci men Type: BLOOD SPECIMEN Ordering Facility: [facility] Address: [address] [place] [address] Performed By: #### 2 4323-8 #### [facility] [id number] [address] [place] [address] [place] Glucose p fast [facility] Glucose post fast [Mass/Vol] 88 mg/dL Normal 74-99 [facility] Comment on above: Order Comment: Speci men Type: BLOOD SPECIMEN Ordering Facility: [facility] Address: [address] [place] [address] Result Comment: [place] Diabetes Association guidelines state that a diabetes mellitus diagnosis is preliminarily made when the fasting plasma glucose meets or exceeds 126 mg/dL. In the absence of unequivocal hyperglycemia, results should be confirmed with repeat testing. Patients are at increased risk for diabetes mellitus (prediabetes) when the fasting glucose is 100 to 125 mg/dL. Performed By: #### 1 558-6 #### [facility] CLIA [id number] [address] [place] [address] [place] HbA1c (Bld)on 07-07-2024 Average glucose Estimated from glycated hemoglobin (Bld) [Mass/Vol] 88 mg/dL Normal [facility] Comment on above: Order Comment: Conor wilkinson Type: BLOOD SPECIMEN Ordering Facility: [facility] Address: [address] [place] [address] Result Comment: eAG: (Estimated average glucose) is a calculated value from HgbA1c and is credit representative of the average blood glucose level in the last 2-3 month period. Performed By: #### 5 5454-3 #### [facility] CLIA [id number] [address] [place] [address] [place] HbA1c (Bld) [Mass fraction] 4.7 % Normal 4.3-5.6 [facility] Comment on above: Order Comment: Conor wilkinson Type: BLOOD SPECIMEN Ordering Facility: [facility] Address: [address] [place] [address] Result Comment: [place] Diabetes Association guidelines indicate that patients with HgbA1c in the range 5.7-6.4% are at increased risk for development of diabetes, and intervention by lifestyle modification may be beneficial. HgbA1c greater or equal to 6.5% is considered diagnostic of diabetes. Performed By: #### 5 5454-3 #### [facility] CLIA [id number] [address] [place] [address] [place] Insulin SerPl-aCncon 07-07-2 024 Insulin Qn 21.3 u[IU]/mL Normal 3.0-25.0 [facility] Comment on above: Order Comment: Conor wilkinson Type: BLOOD SPECIMEN Ordering Facility: [facility] Address: [address] [place] [address] Performed By: #### 2 0448-7 #### [facility] CLIA [id number] [address] [place] [address] [place] T4 Free SerPl-mCncon 024 Free T4 [Mass/Vol] 1.1 ng/dL Normal 0.9-1.7 [facility] Comment on above: Order Comment: Conor wilkinson Type: BLOOD SPECIMEN Ordering Facility: [facility] Address: [address] [place] [address] Performed By: #### 3 024-7, 3016-3 #### [facility] CLIA [id number] [address] [place] [address] [place] TSH SerPl-aCncon 07-07-2024 TSH Qn 3.900 m[IU]/L Normal 0.510-4.300 [facility] Comment on above: Order Comment: Conor wilkinson Type: BLOOD SPECIMEN Ordering Facility: [facility] Address: [address] [place] [address] Result Comment: If t he patient is , TSH reference range varies by gestational period: First Trimester (weeks 9-12): 0.180-2.990 mIU/L Second Trimester: 0.110-3.980 mIU/L Third Trimester: 0.480-4.710 mIU/L Celestino Mullen et al. A Practical Approach for the Verifications and Determination of Site- and Trimester-Specific Reference Intervals for Thyroid Function tests in . Thyroid, 2019:29:3:412-420. Jeff E, et al. 2017 Guidelines of the Citizen Of [place] Thyroid Association for the Diagnosis and Management of Thyroid Disease during and the . Thyroid, 2017:27:3:315-389. Performed By: #### 3 024-7, 3016-3 #### [facility] CLIA [id number] [address] [place] [address] [place] COVID-19, MOLECULARon 09-25- 2024 SARS-CoV-2 (COVID-19) Ab IA Ql Not detected Normal Not Detected [facility] Comment on above: Result Comment: Test ing was performed using the Fernandez ID NOW COVID-19 assay on the ID NOW platform. This test has not been approved for use in asymptomatic patients and its performance in this patient population has not been evaluated. Negative results do not rule out the presence of SARS-CoV-2/COVID-19. POC INFLUENZA A/B MOLECULARo n 04-02-2024 POC INFLUENZA A, MOLECULAR Negative Normal Negative [facility] POC INFLUENZA B, MOLECULAR Negative Normal Negative [facility] POC STREP A- MOLECULARon POC STREP A SCREEN Negative Normal Negative [facility] C. trachomatis+N. gonorrhoea e DNA CHINMAY+probe Ql (Unsp spec)on 11-08-2023 C. trachomatis rRNA CHINMAY+probe Ql (Unsp spec) Negative Negative for Chlamydia trachomatis by amplificaton [facility] Interpretation and review of laboratory results Normal [facility] N. gonorrhoeae rRNA CHINMAY+probe Ql (Unsp spec) Negative Negative for Neisseria gonorrhoeae by amplification [facility] JESSICA/TRICHOMONAS NAATon 0 11-08-2023 C. glabrata RNA CHINMAY+probe Ql (Vag fld) Negative Negative for Jessica glabrata [facility] Jessica sp DNA CHINMAY+probe Ql (Vag fld) Positive Abnormal Negative for Jessica species [facility] Interpretation and review of laboratory results Abnormal [facility] T. vaginalis DNA CHINMAY+probe Ql (Unsp spec) Negative Negative for Trichomonas vaginalis by amplification [facility] Bacteria identified Aer cx N om (Unsp spec)Ordered By: Asya Leary on 08-28-[address] [facility] CT HEAD OR BRAIN WITHOUT CON TRASTon 08-28-2023 CT HEAD OR BRAIN WITHOUT CONTRAST EXAMINATION: CT OF THE HEAD WITHOUT CONTRAST 08/28/2023 TECHNIQUE: CT of the head was performed without the administration of intravenous contrast. Dose modulation, iterative reconstruction, and/or weight based adjustment of the mA/kV was utilized to reduce the radiation dose to as low as reasonably achievable. COMPARISON: None. HISTORY: ORDERING SYSTEM PROVIDED HISTORY: Headache, new or worsening, neuro deficit (Age 18-49y); Persistent headaches status post fall 6 days ago.; TECHNOLOGIST PROVIDED HISTORY: Injury/Trauma Acuity: Acute Reason for Exam: Headache, new or worsening, neuro deficit (Age 18-49y), Persistent headaches status post fall 6 days ago., Post concussive syndrome Type of Encounter: Initial Mechanism of Injury: Headache, new or worsening, neuro deficit (Age 18-49y), Persistent headaches status post fall 6 days ago., Post concussive syndrome ORDERING SYSTEM PROVIDED DIAGNOSIS CODES: F07.81 Post concussive syndrome FINDINGS: BRAIN/VENTRICLES: No acute intracranial hemorrhage or extraaxial fluid collection. Roa-white differentiation is maintained. No evidence of mass, mass effect or midline shift. No evidence of hydrocephalus. ORBITS: The visualized portion of the orbits demonstrate no acute abnormality. SINUSES: The visualized paranasal sinuses and mastoid air cells demonstrate no acute abnormality. SOFT TISSUES/SKULL: No acute abnormality of the visualized skull or soft tissues. IMPRESSION: No acute intracranial abnormality. Workstation ID: [id number] Dictated by: KRYSTAL CANALES on SunAug 28, 2023 4:26:03 PM EST Transcribed by: KRYSTAL CANALES on SunAug 28, 2023 4:26:03 PM EST Finalized by: KRYSTAL CANALES on SunAug 28, 2023 4:26:[address] [facility] Comment on above: Order Comment: Injur y/Trauma or Illness?:Injury/Trauma How long have you had these symptoms (acute/chronic)?:Acute Reason for exam?:Headache, new or worsening, neuro deficit (Age 18-49y), Persistent headaches status post fall 6 days ago., Post concussive syndrome Type of Exam?:Initial Mechanism of injury?:Headache, new or worsening, neuro deficit (Age 18-49y), Persistent headaches status post fall 6 days ago., Post concussive syndrome [facility] No acute intracranial abnormality. Workstation ID: [id number] [facility] EXAMINATION: CT OF THE HEAD WITHOUT CONTRAST 08/28/2023 TECHNIQUE: CT of the head was performed without the administration of intravenous contrast. Dose modulation, iterative reconstruction, and/or weight based adjustment of the mA/kV was utilized to reduce the radiation dose to as low as reasonably achievable. COMPARISON: None. HISTORY: ORDERING SYSTEM PROVIDED HISTORY: Headache, new or worsening, neuro deficit (Age 18-49y); Persistent headaches status post fall 6 days ago.; TECHNOLOGIST PROVIDED HISTORY: Injury/Trauma Acuity: Acute Reason for Exam: Headache, new or worsening, neuro deficit (Age 18-49y), Persistent headaches status post fall 6 days ago., Post concussive syndrome Type of Encounter: Initial Mechanism of Injury: Headache, new or worsening, neuro deficit (Age 18-49y), Persistent headaches status post fall 6 days ago., Post concussive syndrome ORDERING SYSTEM PROVIDED DIAGNOSIS CODES: F07.81 Post concussive syndrome FINDINGS: BRAIN/VENTRICLES: No acute intracranial hemorrhage or extraaxial fluid collection. Roa-white differentiation is maintained. No evidence of mass, mass effect or midline shift. No evidence of hydrocephalus. ORBITS: The visualized portion of the orbits demonstrate no acute abnormality. SINUSES: The visualized paranasal sinuses and mastoid air cells demonstrate no acute abnormality. SOFT TISSUES/SKULL: No acute abnormality of the visualized skull or soft tissues. JEDI MIND [facility] Krystal Canales MD - 08/28/2023 EXAMINATION: CT OF THE HEAD WITHOUT CONTRAST 08/28/2023 TECHNIQUE: CT of the head was performed without the administration of intravenous contrast. Dose modulation, iterative reconstruction, and/or weight based adjustment of the mA/kV was utilized to reduce the radiation dose to as low as reasonably achievable. COMPARISON: None. HISTORY: ORDERING SYSTEM PROVIDED HISTORY: Headache, new or worsening, neuro deficit (Age 18-49y); Persistent headaches status post fall 6 days ago.; TECHNOLOGIST PROVIDED HISTORY: Injury/Trauma Acuity: Acute Reason for Exam: Headache, new or worsening, neuro deficit (Age 18-49y), Persistent headaches status post fall 6 days ago., Post concussive syndrome Type of Encounter: Initial Mechanism of Injury: Headache, new or worsening, neuro deficit (Age 18-49y), Persistent headaches status post fall 6 days ago., Post concussive syndrome ORDERING SYSTEM PROVIDED DIAGNOSIS CODES: F07.81 Post concussive syndrome FINDINGS: BRAIN/VENTRICLES: No acute intracranial hemorrhage or extraaxial fluid collection. Roa-white differentiation is maintained. No evidence of mass, mass effect or midline shift. No evidence of hydrocephalus. ORBITS: The visualized portion of the orbits demonstrate no acute abnormality. SINUSES: The visualized paranasal sinuses and mastoid air cells demonstrate no acute abnormality. SOFT TISSUES/SKULL: No acute abnormality of the visualized skull or soft tissues. IMPRESSION: No acute intracranial abnormality. Workstation ID: [id number] [facility] Radiology Study observation (narrative) [place] CT Head WO contrastOrdered B y: Krystal Canales on 08-28-[address] [facility] Work Phone: Laboratory - Microbiology an d Antimicrobial susceptibilityOrdered By: Asya Leary on 08-28-2023 Bacteria identified Aer cx Nom (Unsp spec) < 10,000 CFU/mL of normal urogenital microbiota [facility] US PELVIC TRANSABDOMINAL AND TRANSVAGINAL WITH COLOR FLOWon 08-16-2023 US PELVIC TRANSABDOMINAL AND TRANSVAGINAL WITH COLOR FLOW EXAMINATION: PELVIC ULTRASOUND HISTORY: ORDERING SYSTEM PROVIDED HISTORY: right lower abd pain, TECHNOLOGIST PROVIDED HISTORY: Illness/Other Reason for exam: RLQ Pain Cancer History: . Surgery, RadiationHistory: . Encounter Type: Unknown Additional signs and symptoms: . ORDERING SYSTEM PROVIDED DIAGNOSIS CODES: COMPARISON: CT scan from 08/15/2023 TECHNIQUE: Transabdominal and transvaginal sonography of the pelvis was performed. FINDINGS: MEASUREMENTS: Uterus: 7.5 x 4.1 x 2.9 cm Endometrium: 4.2 mm in thickness Right Ovary: 3.6 x 1.9 x 1.8 cm Left Ovary: 3.2 x 2.8 x 2.1 cm UTERUS: The uterus is normal in size and contour. There are no myometrial masses. Endometrium is not thickened. An IUD is present in the endometrium and demonstrates adequate positioning based on this examination. ADNEXA: The ovaries are normal in size and demonstrate normal internal arterial and venous waveforms and color Doppler interrogation. There are no adnexal masses. MISC: There is no free fluid in the pelvis. IMPRESSION: Adequate positioning of IUD in the endometrium. Unremarkable pelvic ultrasound. Workstation ID: [id number] Dictated by: HATTIE HICKMAN on SunAug 16, 2023 12:51:51 AM EST Transcribed by: HATTIE HICKMAN on SunAug 16, 2023 12:51:51 AM EST Finalized by: HATTIE HICKMAN on SunAug 16, 2023 12:51:51 AM EST Normal [facility] Comment on above: Order Comment: Injur y/Trauma or Illness?:Illness/Other How long have you had these symptoms (acute/chronic)?:Unknown Reason for exam?:RLQ Pain History of cancer?:. Surgeries, chemotherapy, or radiation?:. Type of Exam?:Unknown Additional signs and symptoms?:. CT ABDOMEN PELVIS WITH IV CO NTRAST ONLYon 08-15-2023 CT ABDOMEN PELVIS WITH IV CONTRAST ONLY EXAMINATION: CT ABDOMEN PELVIS WITH IV CONTRAST ONLY HISTORY: ORDERING SYSTEM PROVIDED HISTORY: RLQ abdominal pain, TECHNOLOGIST PROVIDED HISTORY: Illness/Other Reason for exam: RLQ abdominal pain Encounter Type: Initial Additional signs and symptoms: RLQ abdominal pain ORDERING SYSTEM PROVIDED DIAGNOSIS CODES: COMPARISON: None TECHNIQUE: CT examination of the abdomen and pelvis following the administration of intravenous contrast. Coronal and sagittal reformations were performed. Dose reduction techniques were achieved by using automated exposure control and/or adjustment of mA and/or kV according to patient size and/or use of iterative reconstruction technique. CONTRAST: IOPAMIDOL 370 MG IODINE/ML (76 %) INTRAVENOUS SOLUTION - 75 mL, FINDINGS: Lower chest: Normal. Stomach/Duodenum: Normal. Liver: Normal. Bile ducts: Normal caliber. Gallbladder: No calcified gallstones. Normal caliber wall. Pancreas: Normal. Spleen: Normal. Adrenals: Normal. Kidneys: Normal. Ureters: Normal. Bladder: Normal bladder wall thickness. Urachal ligament remnant. Reproductive organs: IUD is noted within the uterus. Unremarkable ovaries for age. Bowel: No abnormal wall thickening. No obstruction. Normal appendix. Peritoneum: No free intraperitoneal air. No ascites or fluid collection. No nodularity. Vessels: Normal. Lymph nodes: Mildly enlarged mesenteric including right lower quadrant mesenteric lymph nodes, within reactive limits. Abdominal wall: Normal. Osseous structures: No destructive lesions. IMPRESSION: No CT explanation for symptoms. Normal appendix. Workstation ID: [id number] Dictated by: CHAPIN NUNEZ on SunAug 15, 2023 11:12:46 PM EST Transcribed by: CHAPIN NUNEZ on SunAug 15, 2023 11:12:46 PM EST Finalized by: CHAPIN NUNEZ on SunAug 15, 2023 11:12:46 PM EST Normal [facility] Comment on above: Order Comment: Injur y/Trauma or Illness?:Illness/Other How long have you had these symptoms (acute/chronic)?:Acute Reason for exam?:RLQ abdominal pain Type of Exam?:Initial Additional signs and symptoms?:RLQ abdominal pain Laboratory - Microbiology an d Antimicrobial susceptibilityOrdered By: Dr. Jackson on 09-29-2022 Bacteria identified Cx Nom (Bld) No growth in 5 days. [facility] Absolute lymphocyte countOrd ered By: Dr. Jackson on 09-23-2022 Lymphocytes Auto (Unsp spec) [#/Vol] 2.57 10*3/uL 0.83-4.51 [facility] Basophil percentageOrdered B y: Dr. Jackson on 09-23-2022 Basophils/100 WBC (Bld) 0.5 % 0-1 [facility] [facility] Chloride [Moles/Vol] 103 mmol/L 98-107 [facility] Eosinophils/100 WBC (Bld) 0.9 % 0-3 [facility] Glucose [Mass/Vol] 102 mg/dL 74-106 [facility] Comment on above: Fasting Glucose resu lt from 100 to 125 mg/dL suggests IMPAIRED HOMEOSTASIS per A.D.A. criteria. Neutrophils (Bld) [#/Vol] 7.1 10*3/uL 2.0-7.7 [facility] Neutrophils/100 WBC (Bld) 65.8 % 34-64 [facility] Potassium [Moles/Vol] 3.7 mmol/L 3.5-5.1 [facility] Sodium [Moles/Vol] 137 mmol/L 136-145 [facility] WBC (Bld) [#/Vol] 10.7 10*3/uL 4.5-13.0 [facility] Blood erythrocytes count (nu mber/volume)Ordered By: Dr. Jackson on 09-23-2022 RBC (Bld) [#/Vol] 4.38 10*6/uL 4.1-4.8 [facility] Blood hemoglobin measurement (mass/volume)Ordered By: Dr. Jackson on 09-23-2022 Hemoglobin (Bld) [Mass/Vol] 13.0 g/dL 12.0-15.0 [facility] Blood lymphocytes/100 leukoc ytesOrdered By: Dr. Jackson on 09-23-2022 Lymphocytes/100 WBC (Bld) 23.9 % 25-45 [facility] Blood monocytes/100 leukocyt esOrdered By: Dr. Jackson on 09-23-2022 Monocytes/100 WBC (Bld) 8.6 % 3-6 [facility] Blood platelet mean volumeOr dered By: Dr. Jackson on 09-23-2022 Platelet mean volume (Bld) [Entitic vol] 9.2 fL 6.2-12.0 [facility] Determination of erythrocyte mean corpuscular volume (MCV)Ordered By: Dr. Jackson on 09-23-2022 MCV (RBC) [Entitic vol] 91.1 fL 78-96 [facility] Hematocrit Auto (Bld) [Volum e fraction]Ordered By: Dr. Jackson on 09-23-2022 Hematocrit (Bld) [Volume fraction] 39.9 % 37-46 [facility] Laboratory - Chemistry and C hemistry - challengeOrdered By: Dr. Jackson on 09-23-2022 CO2 [Moles/Vol] 28.0 mmol/L 21.0-32.0 [facility] Urea nitrogen/Creatinine [Mass ratio] 21.2 mg/mg 10-20 [facility] Laboratory - Hematology and Cell countsOrdered By: Dr. Jackson on 09-23-2022 Erythrocyte distribution width (RBC) [Entitic vol] 39.3 fL 35.1-43.9 [facility] Erythrocyte distribution width (RBC) [Ratio] 11.8 % 11.6-14.6 [facility] Immature granulocytes/100 WBC (Bld) 0.300 % 0.0-0.9 [facility] Comment on above: IG% - Immature Granu locytes (promyelocytes, myelocytes and metamyelocytes) > 1% indicates that a LEFT SHIFT is Present. MCH (RBC) [Entitic mass] 29.7 pg 25.0-35.0 [facility] Nucleated RBC/100 WBC (Bld) [Ratio] 0 % 0-5 [facility] MCHC Auto (RBC) [Mass/Vol]Or dered By: Dr. Jackson on 09-23-2022 MCHC (RBC) [Mass/Vol] 32.6 g/dL 32-36 [facility] No Panel InformationOrdered By: Dr. Jackson on 09-23-2022 Estimated Creatinine Clearance Calc 124.96 ml/min [facility] Estimated GFR (MDRD) Amer 137 mL/min >60 [facility] Comment on above: GFR Calc Estimated GFR (MDRD) Non-Af Amer 113 mL/min >60 [facility] Comment on above: Non- GFR Calc Platelets bldOrdered By: Dr. Jackson on 09-23-2022 Platelets (Bld) [#/Vol] 298 10*3/uL 150-450 [facility] Serum or plasma calcium amelia urement (mass/volume)Ordered By: Dr. Jackson on 09-23-2022 Calcium [Mass/Vol] 9.5 mg/dL 8.5-10.1 [facility] Serum or plasma creatinine m easurement (mass/volume)Ordered By: Dr. Jackson on 09-23-2022 Creatinine [Mass/Vol] 0.71 mg/dL 0.55-1.02 [facility] Comment on above: The validity of the calculated GFR & GFRAA in patients over 70 years has not been determined. Clinical correlation is essential. Serum or plasma urea nitroge n measurement (mass/volume)Ordered By: Dr. Jackson on 09-23-2022 Urea nitrogen [Mass/Vol] 15 mg/dL 7-18 [facility] Thin prep Papanicolaou smear with manual screeningOrdered By: Dr. Jackson on 09-23-2022 Thin prep Papanicolaou smear with manual screening 6 5-15 [facility] Serum or plasma C reactive p rotein measurement (mass/volume)Ordered By: Dr. Upton on 07-31-2022 CRP [Mass/Vol] 4.11 mg/L 0.0-3.0 [facility] Comment on above: C-Reactive Protein ( CRP) provides useful information for thediagnosis, therapy and monitoring of inflammatory processesand associated diseases. For the evaluation of Relative Riskfor Cardiovascular Disease, a High Sensitivity CRP (HSCRP)should be ordered. No Panel InformationOrdered By: Dr. Upton on 07-17-2022 Vitamin D 25-Hydroxy 55.6 ng/mL [facility] Comment on above: Vitamin D 25(OH) Sta tus Range Deficiency <20 ng/mL (50nmol/L) Insufficiency 20 - 30 ng/mL (50 - 75 nmol/L) Sufficiency 30 - 100 ng/mL (75 - 250 nmol/L) Toxicity >100 ng/mL (>250 nmol/L) Erythrocyte sedimentation ra teOrdered By: Dr. Upton on 04-10-2022 ESR (Bld) [Velocity] 3 mm/h 0-30 [facility] No Panel InformationOrdered By: Dr. Upton on 04-10-2022 Anti-Nuclear Antibody Screen Negative Negative [facility] Comment on above: Performed at: - [facility] [address] [id number] Director: Andrade David PhD, Phone: [phone] Serum or plasma C reactive p rotein measurement (mass/volume)Ordered By: Dr. Upton on 04-10-2022 CRP [Mass/Vol] 4.55 mg/L 0.0-3.0 [facility] Comment on above: C-Reactive Protein ( CRP) provides useful information for thediagnosis, therapy and monitoring of inflammatory processesand associated diseases. For the evaluation of Relative Riskfor Cardiovascular Disease, a High Sensitivity CRP (HSCRP)should be ordered. Serum rheumatoid factor dete ctionOrdered By: Dr. Upton on 04-10-2022 Rheumatoid factor Ql (S) < 10.0 IU/mL <15 [facility] No Panel Informationon 03-05 Stool Calprotectin 28 ug/g 0-120 [facility] Work Phone: Comment on above: Concentration Interp retation Follow-Up<16 - 50 ug/g Normal None>50 -120 ug/g Borderline Re-evaluate in 4-6 weeks >120 ug/g Abnormal Repeat as clinically indicatedPerformed at: - [facility] [address] [id number] Director: Taryn Barber MD, Phone: [phone] Serum or plasma C reactive p rotein measurement (mass/volume)on 03-01-2022 CRP [Mass/Vol] 3.09 mg/L 0.0-3.0 [facility] Work Phone: Comment on above: C-Reactive Protein ( CRP) provides useful information for thediagnosis, therapy and monitoring of inflammatory processesand associated diseases. For the evaluation of Relative Riskfor Cardiovascular Disease, a High Sensitivity CRP (HSCRP)should be ordered. No Panel Informationon 02-07 Tissue Transglutaminase IgG Ab 3 U/mL 0-5 [facility] Work Phone: Comment on above: Negative 0 - 5 Weak Positive 6 - 9 Positive >9 Serum or plasma IgG measurem ent (mass/volume)on 02-07-2022 IgG [Mass/Vol] 884 mg/dL [phone] [facility] Work Phone: Comment on above: Performed at: [address] [id number] Director: Andrade David PhD, Phone: [phone] Basophil percentageon 2021 WBC (Bld) [#/Vol] 5.3 10*3/uL 4.5-13.0 [facility] Work Phone: Blood erythrocytes count (nu mber/volume)on 01-27-2022 RBC (Bld) [#/Vol] 4.41 10*6/uL 4.1-4.8 [facility] Work Phone: Blood hemoglobin measurement (mass/volume)on 01-27-2022 Hemoglobin (Bld) [Mass/Vol] 13.2 g/dL 12.0-15.0 [facility] Work Phone: Blood platelet mean volumeon 01-27-2022 Platelet mean volume (Bld) [Entitic vol] 9.5 fL 6.2-12.0 [facility] Work Phone: [phone] Determination of erythrocyte mean corpuscular volume (MCV)on 01-27-2022 MCV (RBC) [Entitic vol] 91.2 fL 78-96 [facility] Work Phone: [phone] Hematocrit Auto (Bld) [Volum e fraction]on 01-27-2022 Hematocrit (Bld) [Volume fraction] 40.2 % 37-46 [facility] Work Phone: Laboratory - Chemistry and C hemistry - challengeon 01-27-2022 T4 [Mass/Vol] 13.5 ug/dL 4.8-13.9 [facility] Work Phone: [phone] Laboratory - Hematology and Cell countson 01-27-2022 Erythrocyte distribution width (RBC) [Entitic vol] 39.7 fL 35.1-43.9 [facility] Work Phone: [phone] Erythrocyte distribution width (RBC) [Ratio] 11.9 % 11.6-14.6 [facility] Work Phone: [phone] MCH (RBC) [Entitic mass] 29.9 pg 25.0-35.0 [facility] Work Phone: [phone] MCHC Auto (RBC) [Mass/Vol]on 01-27-2022 MCHC (RBC) [Mass/Vol] 32.8 g/dL 32-36 [facility] Work Phone: [phone] No Panel Informationon 01-27 Endomysial IgA Antibody Positive Negative [facility] Work Phone: [phone] Thyroid Stimulating Hormone (TSH) 2.20 uIU/mL 0.358-3.74 [facility] Work Phone: [phone] Platelets bldon 01-27-2022 Platelets (Bld) [#/Vol] 235 10*3/uL 150-450 [facility] Work Phone: [phone] Serum IgA measurement (units /volume)on 01-27-2022 IgA Qn (S) 61 mg/dL 87-352 [facility] Work Phone: [phone] Serum or plasma C reactive p rotein measurement (mass/volume)on 01-27-2022 CRP [Mass/Vol] 3.36 mg/L 0.0-3.0 [facility] Work Phone: [phone] Comment on above: C-Reactive Protein ( CRP) provides useful information for thediagnosis, therapy and monitoring of inflammatory processesand associated diseases. For the evaluation of Relative Riskfor Cardiovascular Disease, a High Sensitivity CRP (HSCRP)should be ordered. Serum tissue transglutaminas e IgA antibody assay (units/volume)on 01-27-2022 tTG IgA Qn (S) <2 U/mL 0-3 [facility] Work Phone: [phone] Comment on above: Negative 0 - 3 Weak Positive 4 - 10 Positive >10 Tissue Transglutaminase (tTG) has been identified as the endomysial antigen. Studies have demonstr- ated that endomysial IgA antibodies have over 99% specificity for gluten sensitive enteropathy. Progress Noteon 09-19-2019 Therapy Teacher Authentication Interface Message Text Pediatric Cardiology Clinic Note - Consultation REASON FOR CONSULTATION: Cheyenne Hernandez, a 13 y.o. female, is being seen today for a consult at the request of Henrique Laguerre MD for our opinion or medical advice regarding racing heart beat. HPI: Cheyenne Hernandez presents today with dad. The patient is described as active and is able to keep up with peers during physical activities. The patient has the following positive cardiac review of systems: Racing heart/palpitations, dizziness/lightheade dness. The patient denies the following: chest pain, shortness of breath, diaphoresis, cyanosis/blue spells, syncope and edema. The patient has been growing well without developmental concerns. Cardiac concerns at today's visit: 1 month of episodes of racing heart. Doesn't think its too fast to count. One time mom counted and said it was 85 bpm. Lying down or resting. Feels heart fast. Has to breathe really deeply to breathe. During some intense practices for volleyball gets dizzy and lightheaded. Has worsened over past month but had in the past as well. Pushes through and continues to play. Gets tunneling/blackening of vision. REVIEW OF SYSTEMS: Constitutional: negative for fatigue, weight changes, fever Eyes: negative for vision changes, vision problems ENT: negative for chronic nasal congestion, ear infections Respiratory: negative for wheezing, chronic cough Gastrointestinal: negative for diarrhea, constipation Musculoskeletal: negative for joint swelling, joint pain, recent significant injuries Hematology: negative for easy bruising or bleeding Neurologic: negative for seizures, frequent headaches Skin: negative for rash or lesions Allergy/immunology: negative for recurrent infections, significant allergies All other systems reviewed and are negative. History: No history on file. Medical History: History reviewed. No pertinent past medical history. Current Problem List: There is no problem list on file for this patient. Past Surgical History: History reviewed. No pertinent surgical history. Current Medications: No current outpatient medications on file. No current facility-administere d medications for this visit. Allergies: Not on File Family History: Family History Problem Relation Age of Onset ? Atrial Fibrillation Maternal Uncle There is no other known family history of congenital cardiac disease, premature coronary artery disease, cardiomyopathies, cardiac disease/rhythm disturbances in the young, or sudden cardiac/sudden unexplained . Social History: Social History Tobacco Use ? Smoking status: Not on file Substance Use Topics ? Alcohol use: Not on file Patient lives with dad, mom, brother. Current grade in school: 2108. Activities: volleyball. Physical Exam: Vitals:BP 110/56 (BP Site: Right Arm, Patient Position: Sitting, BP Cuff Size: Adult) Pulse 63 Resp 28 Ht 170 cm Wt 63.9 kg BMI 22.11 kg/m General: Well developed, well nourished, No acute distress, alert. HEENT: Normocephalic, atraumatic. Mucous membranes moist, pink, acyanotic. Grossly normal dentition. Sclera anicteric, conjunctiva pink. Neck: Supple, full range of motion. No lymphadenopathy. No elevated jugular venous distention. Chest: Clear to auscultation bilaterally, no crackles, rhonchi or wheezes. No increased work of breathing. Cardiovascular: Normally active precordium, regular rate and rhythm, normal S1 and physiologically split S2. No rubs or gallops. 2/6 vibratory systolic murmur best heard LUSB and louder while supine. Abdomen: Bowel sounds present, soft, non-tender, non-distended. No palpable organomegaly. Extremities: Warm, well-perfused, capillary refill brisk. Peripheral pulses 2+ and symmetric without increased radiofemoral delay. No clubbing, cyanosis or edema. Neurologic: Awake, alert, appropriately interactive for age, grossly non-focal. STUDIES: Reviewed and interpreted by me: ECG 09/19/2019: Sinus rhythm. Normal ECG ECHO 09/19/2019: Normal echocardiogram ASSESSMENT: 13 y.o. female referred to clinic for consultation today due to palpitations. Palpitations are a subjective feeling of an abnormal heart rate or rhythm and can be felt both in rate-appropriate sinus rhythm in sensitive individuals but can also result from underlying pathology such as ectopic beats or runs of arrhythmia. I explained the difference between sinus tachycardia and pathologic arrhythmias, including abnormal fast heartbeats such as SVT. I explained that with a normal resting ECG, echocardiogram, and cardiac exam, the likelihood that these palpitations are dangerous or life-threatening is exceedingly low. There are no contraindications to exercise at this time. If the palpitations increasein frequency I may consider additional testing. If palpitations are prolonged, too rapid to count, or associated with syncope I have asked family to call my office so we can discuss potential additional evaluation. The qualities of the murmur appreciated on exam today are consistent with an innocent or benign murmur. I reviewed that an innocent heart murmur is a harmless sound made by the blood circulating through the heart. This type of murmur can be present in up to 80% of individuals at some point in their life, while only 1% of all live births have a congenital heart disease or condition. They are sometimes known as "functional" or physiologic murmurs because the heart is normal and this type of murmur is not clinically significant. These types of murmurs do tend to come and go throughout childhood but may persist into adulthood. They are typically louder at times of increased cardiac output such as with dehydration, fever, anemia, or illness. For patients diagnosed withbenign heart murmurs, there is no need for further cardiac evaluation unless new concerns arise. There is no need for scheduled follow-up, restriction from athletics or need for antibiotic prophylaxis. I discussed that dizziness and fainting are common in teenagers, and is often related to a relative immaturity of the autonomic nervous system, leading to inappropriate or inadequate responses to positional changes. Symptoms can be exacerbated by relative dehydration, certain medications, and deconditioning. The symptoms can be improved by ensuring adequate hydration, which can mean drinking 80-90 oz daily of non-caffeinated beverages. Water or sports drinks with electrolytes are best, and caffeine should be avoided, as it acts as a diuretic. Salt can be added to the diet, by adding it to foods prepared at home, or through salty snacks such as pretzels, as this can help to retain fluid in the intravascular space. Regular physical activity is strongly encouraged, as this will improve muscle and vascular tone, also working to minimize symptoms. In most cases, individuals improve with recognition of the symptoms and small behavior modifications, such as moving slowly from a sitting to standing position, especially when getting up from bed in the morning, in addition to increased fluid and salt intake. However, in rare cases, if symptoms are severe and do not improve with the above interventions, medications may be indicated. Final Diagnoses: 1. Innocent murmur 2. Palpitations - likely sinus tachycardia 3. Lightheadedness, likely vasovagal PLAN: 1. Medications: no cardiac medications are required; no cardiac contraindications to medications 2. SBE Prophylaxis: None required per current AHA recommendations 3. Restrictions: None from a cardiovascular perspective 4. Studies pending: None 5. Follow up: For new or worsening concerns Dorcas Love DO Senior Web Developer [facility] Vital Signs Date Time Vital Sign Value Performing Clinician Facility 04-06-2025 10:04-0400 Body height 170.18 cm Luisito Watkins MD Work Phone: [facility] 04-06-2025 10:04-0400 Body mass index (BMI) [Ratio] 31.8 kg/m2 Luisito Watkins MD Work Phone: [facility] 04-06-2025 10:04-0400 Body temperature 98.2 [degF] Luisito Watkins MD Work Phone: [facility] 04-06-2025 10:04-0400 Body weight 92.07 kg Luisito Watkins MD Work Phone: [facility] 04-06-2025 10:04-0400 Diastolic blood pressure 77 mm[Hg] Luisito Watkins MD Work Phone: [facility] 04-06-2025 10:04-0400 Heart rate 68 /min Luisito Watkins MD Work Phone: [facility] 04-06-2025 10:04-0400 Respiratory rate 16 /min Luisito Watkins MD Work Phone: [facility] 04-06-2025 10:04-0400 SaO2% (BldA) [Mass fraction] 99 % Luisito Watkins MD Work Phone: [facility] 04-06-2025 10:04-0400 Systolic blood pressure 110 mm[Hg] Luisito Watkins MD Work Phone: [facility] 12-05-2024 04:08-0400 Body temperature 98.3 [degF] No Primary Care Physician [facility] 12-05-2024 04:08-0400 Diastolic blood pressure 74 mm[Hg] No Primary Care Physician [facility] 12-05-2024 04:08-0400 Heart rate 68 /min No Primary Care Physician [facility] 12-05-2024 04:08-0400 Respiratory rate 15 /min No Primary Care Physician [facility] 12-05-2024 04:08-0400 SaO2% (BldA) [Mass fraction] 99 % No Primary Care Physician [facility] 12-05-2024 04:08-0400 Systolic blood pressure 129 mm[Hg] No Primary Care Physician [facility] 12-05-2024 02:17-0400 Body height 170.18 cm No Primary Care Physician [facility] 12-05-2024 02:17-0400 Body mass index (BMI) [Ratio] 34 kg/m2 No Primary Care Physician [facility] 12-05-2024 02:17-0400 Body weight 98.6 kg No Primary Care Physician [facility] 08-23-2024 11:15-0500 Heart rate 118 /min Anastasia Tejada DO Work Phone: [facility] 08-23-2024 11:02-0500 Body height 170.2 cm Anastasia Tejada DO Work Phone: [facility] 08-23-2024 11:02-0500 Body mass index (BMI) [Ratio] 31.42 kg/m2 Anastasia Tejada DO Work Phone: [facility] 08-23-2024 11:02-0500 Body temperature 100 [degF] Anastasia Tejada DO Work Phone: [facility] 08-23-2024 11:02-0500 Body weight 90.99 kg Anastasia Tejada DO Work Phone: [facility] 08-23-2024 11:02-0500 Diastolic blood pressure 87 mm[Hg] Anastasia Tejdaa DO Work Phone: [facility] 08-23-2024 11:02-0500 Respiratory rate 14 /min Anastasia Tejada DO Work Phone: [facility] 08-23-2024 11:02-0500 SaO2% (BldA) [Mass fraction] 96 % Anastasia Tejada DO Work Phone: [facility] 08-23-2024 11:02-0500 Systolic blood pressure 125 mm[Hg] Anastasia Tejada DO Work Phone: [facility] 07-07-2024 08:08-0500 Body height 170.2 cm Duran Haury BOOK MENDER.RENT COLLECTOR Work Phone: [facility] 07-07-2024 08:08-0500 Body mass index (BMI) [Ratio] 31.64 kg/m2 Duran Haury BOOK MENDER.RENT COLLECTOR Work Phone: [facility] 07-07-2024 08:08-0500 Body weight 91.63 kg Duran Haury BOOK MENDER.RENT COLLECTOR Work Phone: [facility] 07-07-2024 08:08-0500 Diastolic blood pressure 74 mm[Hg] Duran Haury BOOK MENDER.RENT COLLECTOR Work Phone: [facility] 07-07-2024 08:08-0500 Systolic blood pressure 120 mm[Hg] Duran Haury BOOK MENDER.RENT COLLECTOR Work Phone: [facility] 11-30-2023 16:05-0400 Diastolic blood pressure 80 mm[Hg] Duran Haury BOOK MENDER.RENT COLLECTOR Work Phone: [facility] 11-30-2023 16:05-0400 Systolic blood pressure 118 mm[Hg] Duran Haury BOOK MENDER.RENT COLLECTOR Work Phone: [facility] 11-30-2023 15:53-0400 Body mass index (BMI) [Ratio] 31.14 kg/m2 Duran Haury BOOK MENDER.RENT COLLECTOR Work Phone: [facility] 11-30-2023 15:53-0400 Body weight 90.17 kg Duran Haury BOOK MENDER.RENT COLLECTOR Work Phone: [facility] 11-08-2023 10:11-0400 Body mass index (BMI) [Ratio] 30.48 kg/m2 Duran Evans BOOK MENDER.RENT COLLECTOR Work Phone: [facility] 11-08-2023 10:11-0400 Body weight 88.27 kg Duran Evans BOOK MENDER.RENT COLLECTOR Work Phone: [facility] 11-08-2023 10:11-0400 Diastolic blood pressure 66 mm[Hg] Duran Evans BOOK MENDER.RENT COLLECTOR Work Phone: [facility] 11-08-2023 10:11-0400 Systolic blood pressure 100 mm[Hg] Duran Evans BOOK MENDER.RENT COLLECTOR Work Phone: [facility] 08-28-2023 13:00-0500 Body mass index (BMI) [Ratio] 25.94 kg/m2 Sunil Lopes RENT COLLECTOR Work Phone: [facility] 08-28-2023 13:00-0500 Body temperature 98.2 [degF] Sunil Lopes RENT COLLECTOR Work Phone: [facility] 08-28-2023 13:00-0500 Body weight 84.37 kg Sunil Lopes RENT COLLECTOR Work Phone: [facility] 08-28-2023 13:00-0500 Diastolic blood pressure 80 mm[Hg] Sunil Lopes RENT COLLECTOR Work Phone: [facility] 08-28-2023 13:00-0500 Heart rate 79 /min Sunil Lopes RENT COLLECTOR Work Phone: [facility] 08-28-2023 13:00-0500 SaO2% (BldA) [Mass fraction] 98 % Sunil Lopes RENT COLLECTOR Work Phone: [facility] 08-28-2023 13:00-0500 Systolic blood pressure 131 mm[Hg] Sunil Lopes RENT COLLECTOR Work Phone: [facility] 08-27-2023 14:21-0500 Body height 180.3 cm Nora Lirianowaldemar BARRON Work Phone: [facility] 08-27-2023 14:21-0500 Body mass index (BMI) [Ratio] 25.48 kg/m2 Nora [place] DO Work Phone: [facility] 08-27-2023 14:21-0500 Body temperature 97.9 [degF] Nora [place] DO Work Phone: [facility] 08-27-2023 14:21-0500 Body weight 82.87 kg Nora [place] DO Work Phone: [facility] 08-27-2023 14:21-0500 Diastolic blood pressure 72 mm[Hg] Nora [place] DO Work Phone: [facility] 08-27-2023 14:21-0500 Heart rate 71 /min Nora [place] DO Work Phone: [facility] 08-27-2023 14:21-0500 Respiratory rate 16 /min Nora [place] DO Work Phone: [facility] 08-27-2023 14:21-0500 SaO2% (BldA) [Mass fraction] 99 % Nora [place] DO Work Phone: [facility] 08-27-2023 14:21-0500 Systolic blood pressure 110 mm[Hg] Nora [place] DO Work Phone: [facility] 06-21-2023 09:34-0500 Body height 170.2 cm Susanna Arango MD Work Phone: [facility] 06-21-2023 09:34-0500 Body weight 81.65 kg Susanna Arango MD Work Phone: [facility] 06-21-2023 09:34-0500 Diastolic blood pressure 78 mm[Hg] Susanna Arango MD Work Phone: [facility] 06-21-2023 09:34-0500 Systolic blood pressure 112 mm[Hg] Susanna Arango MD Work Phone: [facility] 09-23-2022 23:36-0400 Body height 170.[address] Amber Galindo Work Phone: [facility] 09-23-2022 23:36-0400 Body mass index (BMI) [Percentile] Per age and sex 87 % Dr. Amber Galindo Work Phone: [facility] 09-23-2022 23:36-0400 Body mass index (BMI) [Ratio] 26.6 kg/m2 Dr. Amber Galindo Work Phone: [facility] 09-23-2022 23:36-0400 Body temperature 97.7 [degF] Dr. Amber Galindo Work Phone: [facility] 09-23-2022 23:36-0400 Body weight 77.[address] Amber Galindo Work Phone: [facility] 09-23-2022 23:36-0400 Diastolic blood pressure 75 mm[Hg] Dr. Amber Galindo Work Phone: [facility] 09-23-2022 23:36-0400 Heart rate 118 /min Dr. Amber Galindo Work Phone: [facility] 09-23-2022 23:36-0400 Respiratory rate 18 /min Dr. Amber Galindo Work Phone: [facility] 09-23-2022 23:36-0400 SaO2% (BldA) [Mass fraction] 100 % Dr. Amber Galindo Work Phone: [facility] 09-23-2022 23:36-0400 Systolic blood pressure 135 mm[Hg] Dr. Amber Galindo Work Phone: [facility] 08-07-2020 05:47-0500 Body mass index (BMI) [Ratio] 22.5 kg/m2 [facility] Work Phone: Encounters Encounter Date Encounter Type Care Provider Facility Start: 05-19-2025 ambulatory Yayo peralesty:[facility] Start: 05-05-2025 ambulatory Sadiq Benítez Facility:[facility] Start: 04-06-2025 End: 04-06-[address] Melvin Cutler MD [facility] Neurology Work Phone: Start: 04-06-2025 End: 04-06-2025 ambulatory Luisito Watkins MD Work Phone: [facility] Neurology Start: 03-26-2025 ambulatory AMBER GALINDO Fac ility:[facility] Start: 03-16-2025 ambulatory Sadiq Benítez Facility:[facility] Start: 02-20-2025 End: 02-20-2025 ambulatory No Primary Care Physician -Laboratory [place] Start: 02-20-2025 End: 02-20-[address] Sadiq Benítez MD -Laboratory [place] Work Phone: Start: 02-20-2025 End: 02-20-2025 ambulatory Sadiq Benítez Facility:[facility] Start: 02-18-2025 End: 02-18-2025 ambulatory No Primary Care Physician -Laboratory [facility] Start: 02-18-2025 End: 02-18-[address] Sadiq Benítez MD -Laboratory [facility] Start: 02-18-2025 End: 02-18-[facility] Start: 12-30-2024 End: 12-30-2024 ambulatory No Primary Care Physician -Laboratory [facility] Start: 12-30-2024 End: 12-30-[address] Luisito Watkins MD -Laboratory [facility] Start: 12-30-2024 End: 12-30-2024 ambulatory [facility] Facility:[facility] Start: 12-05-2024 End: 12-05-2024 Emergency department patient visit No Primary Care Physician -Emergency Department Work Phone: Start: 11-21-2024 End: 11-21-2024 Patient encounter procedure Sunil Paniagua DPM Work Phone: [facility] Neurological Physicians Comment on above: Left foot pain (Prim shankar Dx) Start: 11-21-2024 End: 11-21-2024 ambulatory AMBER GALINDO [facility] Start: 10-30-2024 End: 10-30-2024 Transcribe Orders Sunil Paniagua DPM Work Phone: [facility] Neurology Comment on above: Radiculopathy, lumba r region (Primary Dx) Start: 08-23-2024 End: 08-23-2024 Office outpatient visit 15 minutes Anastasia Tejada DO Work Phone: [facility] [place] Comment on above: Influenza B (Primary Dx); Sore throat; Flu-like symptoms; Suspected COVID-19 virus infection Start: 08-23-2024 End: 08-23-2024 ambulatory AMBER GALINDO [facility] Start: 08-13-2024 End: 08-13-2024 Refill Duran Evans APRN.RENT COLLECTOR Work Phone: OB/Gynecology Comment on above: Refill Request Start: 07-07-2024 End: 07-07-2024 ambulatory DURAN EVASN Facility:[facility] Start: 07-07-2024 End: 07-07-2024 Patient encounter procedure Duran Evans APRN.RENT COLLECTOR Work Phone: OB/Gynecology Comment on above: Encounter for gyneco logical examination (general) (routine) without abnormal findings (Primary Dx); Encounter for surveillance of vaginal ring hormonal contraceptive device; Malaise and fatigue Start: 07-07-2024 End: 07-07-2024 Patient encounter status Duran Evans APRN.RENT COLLECTOR Work Phone: [facility] Start: 06-09-2024 End: 06-09-2024 Refill Duran Evans BOOK MENDER.RENT COLLECTOR Work Phone: OB/Gynecology Comment on above: Refill Request Start: 04-02-2024 End: 04-02-2024 ambulatory FENG TOLENTINO [facility] Start: 02-25-2024 End: 02-25-2024 Refill Durna Evans BOOK MENDER.RENT COLLECTOR Work Phone: OB/Gynecology Comment on above: Refill Request Start: 11-30-2023 End: 11-30-2023 Patient encounter procedure Duran Evans APRN.RENT COLLECTOR Work Phone: OB/Gynecology Comment on above: Encounter for IUD re moval (Primary Dx) Start: 11-08-2023 End: 11-08-2023 Patient encounter procedure Duran Jonesjewel VEGARENT COLLECTOR Work Phone: OB/Gynecology Comment on above: Encounter for manage ment of intrauterine contraceptive device (IUD), unspecified IUD management type (Primary Dx); Pelvic pain in female; Encounter for IUD removal Start: 09-04-2023 End: 09-04-2023 Manual pelvic examination Dorcas Juan Diego VEGACNM Work Phone: OB/Gynecology Comment on above: IUD (intrauterine de vice) in place (Primary Dx); Pelvic pain in female Start: 09-04-2023 End: 09-04-2023 Telemedicine consultation with patient Dorcasevelin Adamson CNKirby Work Phone: [facility] Start: 08-28-2023 End: 08-29-2023 ambulatory SUNIL LOPES [facility] Start: 08-28-2023 Documentation procedure Donaldo Lopes CNP Work Phone: [facility] Comment on above: Post concussive synd fabienne (Primary Dx) Start: 08-28-2023 End: 08-28-2023 Office outpatient new 45 minutes Sunil Lopes CNP Work Phone: [facility] Out[facility] Comment on above: Post concussive synd fabienne (Primary Dx) Start: 08-27-2023 End: 08-27-2023 Office outpatient visit 15 minutes Nora Calhoun DO Work Phone: [facility] DEPUTY CORONER Medicine [place] Comment on above: Right lower quadrant abdominal pain (Primary Dx); Pelvic pain in female Start: 08-22-2023 End: 08-22-2023 Emergency department patient visit MARYAM LANCASTER [facility] Start: 08-22-2023 Emergency department patient visit [facility] Start: 08-15-2023 End: 08-16-2023 Emergency department patient visit PROMISE ROMANO [facility] Start: 02-06-2024 Telephone encounter uSsanna Arango MD Work Phone: OB/Gynecology Comment on above: Patient Question Start: 06-21-2023 End: 06-21-2023 Patient encounter procedure Susanna Arango MD Work Phone: OB/Gynecology Comment on above: Encounter for gyneco logical examination (general) (routine) without abnormal findings (Primary Dx); Encounter for initial prescription of other contraceptives; Encounter for IUD insertion Start: 06-21-2023 End: 06-21-2023 Patient encounter status Susanna Arango MD Work Phone: [facility] Start: 02-19-2023 End: 02-19-[address] Amber Galindo Work Phone: [facility] Work Phone: Start: 02-19-2023 End: 02-19-[address] Amber Galindo Work Phone: [facility]-Physical Therapy Work Phone: Start: 02-15-2023 End: 02-15-[address] Amber Galindo Work Phone: [facility] Work Phone: Start: 02-13-2023 End: 02-13-[address] Amber Galindo Work Phone: [facility] Work Phone: Start: 02-06-2023 End: 02-06-[address] Amber Galindo Work Phone: [facility] Work Phone: Start: 11-01-2022 End: 11-01-[address] Amber Galindo Work Phone: [facility] Work Phone: Start: 11-01-2022 End: 11-01-[address] Amber Galindo Work Phone: [facility] Start: 09-24-2022 Non-patient / Non-visit Dr. Spenser Galindo Work Phone: [facility] Start: 09-24-2022 End: 09-24-[address] Amber Galindo Work Phone: [facility] Work Phone: Start: 09-24-2022 End: 09-24-[address] Amber Galindo Work Phone: [facility] Start: 09-23-2022 End: 09-24-2022 Emergency department patient visit Dr. Amber Galindo Work Phone: [facility]-Emergency Department Start: 07-31-2022 End: 07-31-2022 ambulatory [facility] Work Phone: Start: 07-31-2022 End: 07-31-2022 Patient encounter procedure [facility] Start: 07-17-2022 End: 07-17-2022 ambulatory [facility] Work Phone: Start: 07-17-2022 End: 07-17-2022 Patient encounter procedure [facility] Start: 05-17-2022 Registered Recurring [facility] Start: 04-10-2022 End: 04-10-2022 ambulatory [facility] Work Phone: Start: 04-10-2022 End: 04-10-2022 [facility] Start: 03-07-2022 End: 03-07-2022 ambulatory [facility] Work Phone: Start: 03-07-2022 End: 03-07-2022 Patient encounter procedure [facility] Start: 03-06-2022 End: 03-06-2022 ambulatory [facility] Work Phone: Start: 03-06-2022 End: 03-06-2022 Patient encounter procedure [facility], Spec[facility] Start: 03-01-2022 End: 03-01-2022 ambulatory [facility] Work Phone: Start: 03-01-2022 End: 03-01-2022 Patient encounter procedure [facility], [place] Start: 02-16-2022 End: 02-16-2022 Patient encounter procedure [facility], [facility] Start: 02-07-2022 End: 02-07-2022 Patient encounter procedure [facility], [place] Start: 01-27-2022 End: 01-27-2022 Patient encounter procedure [facility], [place] Start: 07-11-2021 End: 07-11-2021 Discharged Recurring [facility], [facility] Start: 07-11-2021 Registered Recurring [facility], [facility] Start: 07-07-2021 End: 07-07-2021 Discharged Recurring [facility] Procedures Date Procedure Procedure Detail Performing Clinician Start: 02-20-2025 Aldosterone measurement, serum Luisito Watkins MD Work Phone: Comment on above: Performed at: [facility] [address] [id number] Director: Taryn Barber MD, Phone: [phone] Start: 02-18-2025 Dehydroepiandrostero ne sulfate level No Primary Care Physician Comment on above: Performed at: [facility] [address] [id number] Director: Andrade David PhD, Phone: [phone] at: [facility] [address] [id number] Director: Taryn Barber MD, Phone: [phone] Start: 02-18-2025 Endomysial antibody IgA level No Primary Care Physician Start: 02-18-2025 Immunoglobulin M measurement No Primary Care Physician Start: 02-18-2025 Lyme disease test No Pr imary Care Physician Start: 02-18-2025 Lyme immunoblot test No Primary Care Physician Start: 02-18-2025 Serologic test for syphilis No Primary Care Physician Start: 12-30-2024 JACK measurement No Prim shankar Care Physician Comment on above: Performed at: [place] [id number] Director: Andrade David PhD, Phone: [phone] Start: 12-30-2024 Vitamin D, 25-hydrox y measurement No Primary Care Physician Comment on above: Vitamin D StatusDefi ciency: <20 ng/mL (50nmol/L)Insufficiency: 20-30 ng/mL (50-75 nmol/L)Sufficiency: 30-100 ng/mL (75-250 nmol/L)Toxicity: >100 ng/mL (>250 nmol/L) Start: 12-05-2024 X-ray of ankle, thre e or more views No Primary Care Physician Start: 11-21-2024 Electromyography Mirna Navarro MD Work Phone: Start: 08-23-2024 End: 08-23-2024 Infectious agent dna/rna influenza 1st 2 types Anastasia Tejada DO Work Phone: Start: 08-23-2024 Sars-cov-2 detection by dna/rna Anastasia Tejada DO Work Phone: Start: 11-08-2023 Iadna chlamydia trac homatis amplified probe tq Duran Robertury BOOK MENDER.RENT COLLECTOR Work Phone: Start: 08-27-2023 Culture bacterial qu anttative colony count urine Nora Calhoun DO Work Phone: Start: 09-23-2022 Radiologic examination of knee Dr. Amber Galindo Work Phone: Start: 03-07-2022 Radiologic examination of knee Start: 02-16-2022 Small bowel series Bacteria identified in Blood by Culture Dr. Amber Galindo Work Phone: Plan of Treatment Date Care Activity Detail Author Start: 01-24-2026 Tetanus vaccination Tetanus: Every [address] [facility] Start: 01-24-2026 Urine microalbumin profile DTaP,Tdap,Td Vaccine (2 - Td or Tdap) [facility] Start: 07-08-2025 End: 07-08-2025 Patient encounter procedure 07/08/2025 10:15 AM EST Office Visit OB/Gynecology [address] [place], [place] [address] Duran Evans APRN.RENT COLLECTOR [address] [place] [place] [address] Annual OB/Gynecology Comment on above: Annual Start: 03-09-2025 Influenza vaccination Influenza Vaccine (Season Ended) [facility] Start: 02-18-2025 Borrelia burgdorferi blot test [facility] Start: 02-18-2025 Celiac disease screen [facility] Start: 02-18-2025 Immunoglobulin measurement [facility] Start: 12-05-2024 [facility] Start: 2024 GC (Gonorrhea) Screening (18-24) GC (Gonorrhea) Screening (18-24) [facility] Start: 2024 Screening for Chlamydia trachomatis [facility] Start: 11-06-2024 Screening for malignant neoplasm of cervix Pap Smear [facility] Start: 07-07-2024 End: 10-06-2024 25-hydroxyvitamin D3 [Mass/volume] in Serum or Plasma [facility] Work Phone: Comment on above: Expected: 07/07/2024, Expires: Start: 07-07-2024 End: 10-06-2024 Fasting glucose [Mass/volume] in Serum or Plasma [facility] Comment on above: Expected: 07/07/2024, Expires: Start: 07-07-2024 End: 10-06-2024 Hemoglobin A1c in Blood [facility] Comment on above: Expected: 07/07/2024, Expires: Start: 07-07-2024 End: 10-06-2024 Insulin [Units/volume] in Serum or Plasma [facility] Comment on above: Expected: 07/07/2024, Expires: Start: 07-07-2024 End: 10-06-2024 Thyrotropin [Units/volume] in Serum or Plasma [facility] Comment on above: Expected: 07/07/2024, Expires: Start: 07-07-2024 End: 10-06-2024 Thyroxine (T4) free [Mass/volume] in Serum or Plasma [facility] Comment on above: Expected: 07/07/2024, Expires: Start: 07-07-2024 End: 07-07-2024 Patient encounter procedure OB/Gynecolog y Comment on above: Annual Exam Start: 06-27-2024 GC (Gonorrhea) Screening () GC (Gonorrhea) Screening () [facility] Start: 06-27-2024 Screening for Chlamydia trachomatis [facility] Start: 03-09-2024 Covid-19 Vaccine () Covid-19 Vaccine () [facility] Start: 03-09-2024 Influenza vaccination [facility] Start: 11-30-2023 End: 11-30-2023 Patient encounter procedure 11/30/2023 4:00 PM EDT Office Visit OB/Gynecology [address] [place] [address] Duran Evans APRN.RENT COLLECTOR [address] [place] [address] Encounter for IUD removal [Z30.432] OB/Gynecology Comment on above: Encounter for IUD removal [Z30.432] Start: 07-09-2023 Behavioral Health Screening Behavioral Health Screening [facility] Start: 07-09-2023 Depression Assessment Depression Assessment [facility] Start: 03-09-2023 Covid-19 Vaccine () Covid-19 Vaccine () [facility] Start: 03-09-2023 Influenza vaccination [facility] Start: 11-06-2022 Hepatitis B Vaccine (1 of 3 - 19+ 3-dose series) Hepatitis B Vaccine (1 of 3 - 19+ 3-dose series) [facility] Start: 07-09-2022 Depression Assessment Depression Assessment [facility] Start: 03-05-2022 Protein measurement [facility] Work Phone: Start: 11-06-2021 Anxiety Screening Anxiety Screening [facility] Start: 11-06-2021 Depression Screening Depression Screening [facility] Start: 11-06-2021 GC (Gonorrhea) Screening (18-24) GC (Gonorrhea) Screening (18-24) [facility] Start: 11-06-2021 Hepatitis C screening Hepatitis C Screening [facility] Start: 11-06-2021 HIV screening HIV Screening [facility] Start: 11-06-2021 Screening for Chlamydia trachomatis Chlamydia Screening (18-24) [facility] Start: 2019 Meningococcal B Vaccine: Consider Based On Risk (1 of 2 - Patient Seeks Protection) Meningococcal B Vaccine: Consider Based On Risk (1 of 2 - Patient Seeks Protection) [facility] Start: 01-30-2019 HPV Vaccine (2 - 3-dose series) HPV Vaccine (2 - 3-dose series) [facility] Start: 01-30-2019 Vaccination for human papillomavirus HPV Vaccines (2 - 3-dose series) [facility] Start: 11-06-2018 HIV screening HIV Screening [facility] Start: 11-06-2017 Peds To Adult Transition Annual Assessment Peds To Adult Transition Annual Assessment [facility] Start: 2015 Depression screening using PHQ-9 (Patient Health Questionnaire 9) score [facility] Start: 2015 Peds To Adult Transition Initial Discussion Peds To Adult Transition Initial Discussion [facility] Start: 11-06-2006 History and physical examination, annual for health maintenance Wellness Visit [facility] Start: 2003 Hepatitis B Vaccine (1 of 3 - 3-dose series) Hepatitis B Vaccine (1 of 3 - 3-dose series) [facility] BACTERIAL VAGINOSIS NAAT BACTERI AL VAGINOSIS NAAT Lab Routine Pelvic pain in female 11/08/2023 10:40 AM EDT [facility] Chiropractic manipulation [facility] Dehydroepiandrostero ne sulfate (DHEA-S) [Mass/volume] in Serum or Plasma [facility] IgA [Mass/volume] in Serum or Plasma [facility] IgE [Units/volume] i n Serum or Plasma [facility] IgG [Mass/volume] in Serum or Plasma [facility] IgM [Mass/volume] in Serum or Plasma [facility] Insertion intrauteri ne device iud INSERT INTRAUTERINE DEVICE Procedures Routine Encounter for IUD insertion Ordered: 06/21/2023 [facility] Work Phone: Comment on above: Ordered: 06/21/2023 Laboratory data interpretation [facility] Patient Education [facility] Work Phone: Patient referral [facility] Work Phone: Removal intrauterine device iud REMOVE INTRAUTERINE DEVICE Procedures Routine Encounter for IUD removal Ordered: 11/08/2023 [facility] Work Phone: Comment on above: Ordered: 11/08/2023 Renin [Enzymatic activity/volume] in Plasma [facility] Tissue transglutamin ase IgA Ab [Units/volume] in Serum [facility] End: 09-12-2024 US Pelvis transvaginal US FEMALE PELVIS TRANSVAG Radiology Routine Pelvic pain in female 1 Occurrences starting 08/14/2023 until 09/12/2024 [facility] Work Phone: Comment on above: 1 Occurrences starting 08/14/2023 until 09/12/2024 [place] Immun[facility] Immunization Date Immunization Notes Care Provider [facility] 02-04-2021 meningococcal polysaccharide vaccine (MPSV4) Susanna Arango MD Work Phone: [facility] Work Phone: 01-02-2019 human papilloma viru s vaccine, quadrivalent Susanna Arango MD Work Phone: [facility] Work Phone: 01-02-2019 HPV, unspecified formulation Nora Lj BARRON Work Phone: [facility] 01-25-2016 meningococcal polysaccharide vaccine (MPSV4) Susanna Arango MD Work Phone: [facility] Work Phone: 01-25-2016 tetanus toxoid, redu carmine diphtheria toxoid, and acellular pertussis vaccine, adsorbed Susanna Arango MD Work Phone: [facility] Work Phone: 06-04-2015 influenza, seasonal, injectable Susanna Arango MD Work Phone: [facility] Work Phone: 06-04-2015 influenza virus vacc ine, unspecified formulation Susanna Arango MD Work Phone: [facility] 05-11-2014 influenza, seasonal, injectable Susanna Arango MD Work Phone: [facility] Work Phone: Payers Date Payer Category Payer Self-pay [id number] 2024 Managed Care HMO (unspecified) [facility] HMO/CHOICE PLUS/BRE/BRE PLUS [id number] 2024 Unknown [id number] 2023 Unknown [facility] HMO/[place] CE PLUS/BRE/BRE PLUS [id number] 2023-Present [id number] [place] [phone] [id number] 2022 Private Health Insurance [facility] CHOICE PLUS [id number] 2022-Present [id number] [place] [phone] HMO [id number] 2022 Unknown [id number] 2011 Private Health Insurance [facility] [id number] 2003 Unknown [id number]. 900 2003 Unknown [id number]. 900 2003 Unknown [id number]. 902 2003 Unknown [id number]. 903 2003 Unknown [id number]. 903 2003 Unknown [id number] [id number]. 903 Unknown . [id number] Unknown [id number] Unknown [id number]. 462 Unknown [id number] [id number]. 462 Unknown [id number]. 462 Unknown [id number]. 462 Unknown [id number] [id number]. 462 Unknown [id number] [id number]. 462 Unknown [id number] [id number]. 462 Unknown [id number]. 462 Social History Date Type Detail Facility Start: 08-07-2020 End: 02-15-2023 Tobacco smoking status NHIS Unknown if ever smoked [facility] Start: 08-07-2020 None [facility] Start: 08-07-2020 With Family [facility] Start: 2003 Sex Assigned At Female [facility] Start: 06-21-2023 End: 04-06-2025 Tobacco smoking status NHIS Never smoked tobacco [facility] Start: 06-21-2023 End: 08-15-2023 Tobacco use and exposure Smokeless tobacco non-user [facility] Start: 06-21-2023 End: 07-07-2024 Alcohol intake Current drinker of alcohol (finding) [facility] Start: 06-21-2023 End: 08-27-2023 History of Social function [facility] Start: 06-21-2023 End: 08-27-2023 Tobacco use panel [facility] National Score (1-100), lower number is lower risk 65 [facility] Start: 2003 Sex Assigned At Not on file C [facility] Start: 08-27-2023 End: 11-21-2024 Alcohol intake Ex-drinker (finding) [facility] Within the last year , have you been afraid of your partner or ex-partner? No [facility] Do you feel stress - tense, restless, nervous, or anxious, or unable to sleep at night because your mind is troubled all the time - these days [OSQ] Only a little [facility] (I/We) worried whether (my/our) food would run out before (I/we) got money to buy more. Never true [facility] Start: 08-15-2023 Gender identity Identifies as female gender (finding) [facility] Start: 08-15-2023 Sexual orientation Heterosexual (fin annalisa) [facility] NEGATED: Highlighted row [facility] Goals Date Patient Goal Desired Activity /State Clinical Notes 10-01-2022 to 04-06-2025 Mirna Navarro MD - 11/21/2024 9:12 AM EDTPatient Anastasia Norwood DO - 08/23/2024 11:15 AM ESTTelephone Encounter - Lizeth Estevez RN - 08/13/2024 11:53 AM EST Note Date & Type Note Facility 04-06-[address] [facility] 03-26-2025 Note HNO ID: [id number] Author: HATTIE DOMINGO RT(R) Service: ? Author Type: Technologist Type: Progress Notes Filed: 03/26/2025 09:56 Note Text: Radiology Service Progress Note PATIENT NAME: Cheyenne Hernandez DATE OF SERVICE: March 26, 2025 TIME: 9:56 AM PATIENT IDENTITY VERIFICATION COMPLETED USING TWO (2) IDENTIFIERS: Name and Date of confirmed by patient verbally. FALL SCREENING: Has the patient had 2 falls in the last year or 1 fall with injury or currently using an Ambulatory Assistive Device (Walker, Cane, Wheelchair, Crutches, etc.)? No PATIENT GENDER DATA: Assigned female at . status: : No status: NO. PATIENT RELEVANT IMPLANT DATA REVIEWED: Yes PATIENT PRESENTS WITH AN IMPLANTABLE OR ATTACHED DANCE CRITIC: No RADIOLOGY DEPARTMENT: MR; Exam(s) Completed: Body: Adrenal. Anesthesia: No. Aromatherapy Administered: No PERIPHERAL IV DATA: Not applicable SIGNED BY: RT Ludy(R) March 26, 2025 9:[address] [facility] 12-05-2024 Radiology Diagnostic study note [facility] Imaging Services [address] [place] [address] [id number] Ankle min 3 Views MR#: [id number] Acct: [id number] Name: CHEYENNE HERNANDEZ Rep #: [id number] : 2005 F 19 From: Glen Galo MD PCP: Care Physician,No Primary Status: REG ER Study:Ankle min 3 Views Date of Exam: Exam# [id number] Ordering Dr: Aditya Randhawa DO PROCEDURE: ANKLE MIN 3 VIEWS 12/05/2024 REASON FOR EXAM: INJURY TECHNIQUE: 3 views of the left ankle COMPARISON: None available FINDINGS: No fracture or dislocation. Joint spaces appear within limits. Lateral ankle soft tissue swelling. RAD/Ankle min 3 Views IMPRESSION: No fracture or dislocation. Joint spaces appear within limits. Lateral ankle soft tissue swelling. If symptoms persist, may follow-up with repeat imaging in 7-10 days as warranted. Reading Location: [id number] CC: Dr. Aditya Randhawa, DO; No Primary Care Physician ~ Corn Husker Machine Operator: Signed [facility] 11-21-[address] [facility] Nerve Conduction & EMG Report Full Name: Cheyenne Hernandez Date of : 2005 Visit Date: 11/21/2024 9:15 AM Age: 19 Years Examining MD: Mirna Navarro MD Referring Physician: Sunil Paniagua Jr [facility] Temperature: 35.6 Height: 5 feet 7 inch Referred for: EMG:L foot pain for 5 years. Hx of foot surgery. No LBP or DM. Plan: The study was design to evaluate for entrapment neuropathy, polyneuropathy, radiculopathy, or plexopathy. Procedure indication, risk, complications, side effects and alternatives were explained. Verbal consent was obtained and patient agreed to proceed.. Patient was instructed to clean the puncture site with soap and water and put some ice pack for bruising. Impression: There is NO clear electrodiagnostic evidence of a left lumbosacral radiculopathy, plexopathy, entrapment neuropathy, or diffuse sensorimotor polyneuropathy at this time. EMG Summary: The left peroneal and tibial motor nerve conduction studies were normal. The left sural and superficial peroneal sensory nerve conduction studies were also normal. The left H reflex was normal. The left medial and lateral plantar sensory nerve conduction studies were normal. Needle EMG of the muscle tested showed no abnormal spontaneous activity. Normal motor unit action potentials and recruitment patterns were seen. Mirna Navarro MD Diplomate, ABPN, NBPAS Clinical Neurophysiology, Neurology, Vascular Neurology and Sleep Medicine [facility] [place] [phone] Motor NCS Nerve / Sites Muscle Latency Amplitude Distance Velocity ms mV cm m/s L Deep peroneal (Fibular) - EDB Ankle EDB 4.92 6.4 8.5 Fib Head EDB 11.67 6.4 32 47.4 Knee EDB 12.92 6.4 7 56.0 L Tibial - AH Ankle AH 3.88 20.0 8 Knee AH 11.60 17.9 41 53.0 Sensory NCS Nerve / Sites Peak Amp Amp.2-3 Distance Velocity d Lat.2 ms V V cm m/s ms L Sural - Lat Mall Calf 3.69 22.6 20.8 14 47 L Superficial peroneal - Ankle Lat leg 3.46 16.8 7.8 14 54 L Medial plantar, Lateral plantar - Ankle (Medial, lateral sole) Medial plantar Sole 3.13 1.8 22.1 12 48 Lateral plantar Sole 3.65 9.3 3.9 14 52 Medial plantar Sole - Lateral plantar Sole -0.52 H Reflex Nerve H Lat ms L Tibial - Soleus 27.66 EMG Summary Table Spontaneous Activity Amplitude Duration Recruitment Polyphasia Activation Comment Muscle Ins Act Fib PSW Fasc - - - - - - L. Vastus lateralis Normal 0 0 0 Normal Normal Normal Normal Normal Normal L. Semitendinosus Normal 0 0 0 Normal Normal Normal Normal Normal Normal L. Tibialis anterior Normal 0 0 0 Normal Normal Normal Normal Normal Normal L. Gastrocnemius (Medial head) Normal 0 0 0 Normal Normal Normal Normal Normal Normal L. Abductor hallucis Normal 0 0 0 Normal Normal Normal Normal Normal Normal L. Lumbar paraspinals Normal 0 0 0 Normal Normal Normal Normal Normal Normal NORMAL VALUES FOR NERVE CONDUCTION STUDIES MOTOR Location of Recording Distance (cm) Distal Latency (msec) Amplitude (mV) CV (m/sec) Median APB 7 <4.5 >4.0 >48 Ulnar ADM 6.5 <3.6 >6.0 >51 Radial EDC - <3.1 - >67 Peroneal EDB 8.5 <6.6 >2.0 >41 Peroneal TA 10 <6.8 >5.1 >43 Tibial AH 8 <6.1 >4.0 >40 SENSORY Location of Recording Distance (cm) Distal Latency (msec) Amplitude (?V) CV (m/sec) Median Anti Digit 2 13 <3.6 >15 >56 Ulnar Anti Digit 5 11 <3.1 >10 >54 Radial Anti Snuff 10 <2.9 >15 >49 Median Palm Median Wrist 8 <2.3 >50 >56 Ulnar Palm Ulnar Wrist 8 <2.3 >15 >55 Median Ortho Median Wrist 13 <3.6 >10 - Ulnar Ortho Ulnar Wrist 11 <3.1 >0 - Sural L Malleolus 14 <4.5 >6 (<60yo) >40 Sup. Peroneal Ankle 14 <4.1 >0 - Med Plantar M Malleolus 12-14 <4.0 >7 (<55yo) - Lat Plantar M Malleolus - <4.6 >3 (<55yo) - Source of normal values: [facility] EMG Date/Time: 11/21/2024 9:25 AM Performed by: Mirna Navarro MD Authorized by: Mirna Navarro MD Verbal consent: obtained Consent given by: patient Time out: Immediately prior to procedure a "time out" was called to verify the correct patient, procedure, equipment, network support administrator and site/side marked as required. Patient tolerance: Patient tolerated the procedure well with no immediate complications AUTHENTICATED BY MIRNA NAVARRO, ON 11/21/2024 09:27:45 [facility] 11-21-2024 History of Present illness Narrative Associated Order(s): EMG Post-Procedure Diagnose(s): Left foot pain Images from the original note were not included. [facility] Nerve Conduction & EMG Report Full Name: Cheyenne Hernandez Date of : 2005 Visit Date: 11/21/2024 9:15 AM Age: 19 Years Examining MD: Mirna Navarro MD Referring Physician: Sunil Paniagua Jr, DPM Temperature: 35.6 Height: 5 feet 7 inch Referred for: EMG:L foot pain for 5 years. Hx of foot surgery. No LBP or DM. Plan: The study was design to evaluate for entrapment neuropathy, polyneuropathy, radiculopathy, or plexopathy. Procedure indication, risk, complications, side effects and alternatives were explained. Verbal consent was obtained and patient agreed to proceed.. Patient was instructed to clean the puncture site with soap and water and put some ice pack for bruising. Impression: There is NO clear electrodiagnostic evidence of a left lumbosacral radiculopathy, plexopathy, entrapment neuropathy, or diffuse sensorimotor polyneuropathy at this time. EMG Summary: The left peroneal and tibial motor nerve conduction studies were normal. The left sural and superficial peroneal sensory nerve conduction studies were also normal. The left H reflex was normal. The left medial and lateral plantar sensory nerve conduction studies were normal. Needle EMG of the muscle tested showed no abnormal spontaneous activity. Normal motor unit action potentials and recruitment patterns were seen. Mirna Navarro MD Diplomate, ABPN, NBPAS Clinical Neurophysiology, Neurology, Vascular Neurology and Sleep Medicine [facility] [place] [phone] Motor NCS Nerve / Sites Muscle Latency Amplitude Distance Velocity ms mV cm m/s L Deep peroneal (Fibular) - EDB Ankle EDB 4.92 6.4 8.5 Fib Head EDB 11.67 6.4 32 47.4 Knee EDB 12.92 6.4 7 56.0 L Tibial - AH Ankle AH 3.88 20.0 8 Knee AH 11.60 17.9 41 53.0 Sensory NCS Nerve / Sites Peak Amp Amp.2-3 Distance Velocity d Lat.2 ms V V cm m/s ms L Sural - Lat Mall Calf 3.69 22.6 20.8 14 47 L Superficial peroneal - Ankle Lat leg 3.46 16.8 7.8 14 54 L Medial plantar, Lateral plantar - Ankle (Medial, lateral sole) Medial plantar Sole 3.13 1.8 22.1 12 48 Lateral plantar Sole 3.65 9.3 3.9 14 52 Medial plantar Sole - Lateral plantar Sole -0.52 H Reflex Nerve H Lat ms L Tibial - Soleus 27.66 EMG Summary Table Spontaneous Activity Amplitude Duration Recruitment Polyphasia Activation Comment Muscle Ins Act Fib PSW Fasc - - - - - - L. Vastus lateralis Normal 0 0 0 Normal Normal Normal Normal Normal Normal L. Semitendinosus Normal 0 0 0 Normal Normal Normal Normal Normal Normal L. Tibialis anterior Normal 0 0 0 Normal Normal Normal Normal Normal Normal L. Gastrocnemius (Medial head) Normal 0 0 0 Normal Normal Normal Normal Normal Normal L. Abductor hallucis Normal 0 0 0 Normal Normal Normal Normal Normal Normal L. Lumbar paraspinals Normal 0 0 0 Normal Normal Normal Normal Normal Normal NORMAL VALUES FOR NERVE CONDUCTION STUDIES MOTOR Location of Recording Distance (cm) Distal Latency (msec) Amplitude (mV) CV (m/sec) Median APB 7 <4.5 >4.0 >48 Ulnar ADM 6.5 <3.6 >6.0 >51 Radial EDC - <3.1 - >67 Peroneal EDB 8.5 <6.6 >2.0 >41 Peroneal TA 10 <6.8 >5.1 >43 Tibial AH 8 <6.1 >4.0 >40 SENSORY Location of Recording Distance (cm) Distal Latency (msec) Amplitude (?V) CV (m/sec) Median Anti Digit 2 13 <3.6 >15 >56 Ulnar Anti Digit 5 11 <3.1 >10 >54 Radial Anti Snuff 10 <2.9 >15 >49 Median Palm Median Wrist 8 <2.3 >50 >56 Ulnar Palm Ulnar Wrist 8 <2.3 >15 >55 Median Ortho Median Wrist 13 <3.6 >10 - Ulnar Ortho Ulnar Wrist 11 <3.1 >0 - Sural L Malleolus 14 <4.5 >6 (<60yo) >40 Sup. Peroneal Ankle 14 <4.1 >0 - Med Plantar M Malleolus 12-14 <4.0 >7 (<55yo) - Lat Plantar M Malleolus - <4.6 >3 (<55yo) - Source of normal values: [facility] EMG Date/Time: 11/21/2024 9:25 AM Performed by: Mirna Navarro MD Authorized by: Mirna Navarro MD Verbal consent: obtained Consent given by: patient Time out: Immediately prior to procedure a "time out" was called to verify the correct patient, procedure, equipment, network support administrator and site/side marked as required. Patient tolerance: Patient tolerated the procedure well with no immediate complications documented in this encounter [facility] 08-23-2024 Instructions Anastasia Tejada DO - 08/23/2024 11:34 AM EST At home instruction Lots of fluid and rest You can alternate between ibuprofen and Tylenol for fever, chills, body aches Stay home until you are fever free for 24 hours without use of ibuprofen, Tylenol and your symptoms are improving Take capmist every 6 hr as needed for cough/congestion Take tessalon perles 3 times a day as needed for cough Use flonase 2 sprays each nostril at bedtime to help with nasal congestion, post nasal drainage Try honey, humidifier to help with cough Any acutely worsening symptoms, such as persistent fever over 5 days, shortness of breath, chest pain, dizziness, inability to eat or drink, please go to emergency department [facility] School note given Take tamiflu as instructed DISCHARGE INSTRUCTIONS: Acetaminophen & Ibuprofen Acetaminophen (Tylenol): is used for fever and pain. It comes in regular strength (325 mg) and extra strength (500 mg). I recommend two ES tablets (1000 mg) every 6 hours. Do not take more than 4 total doses (4,000 mg) in a 24-hour period. Do not take if you have liver problems. Use Tylenol with caution when using other Tylenol containing medications, such as Percocet, [place] and/or some iiex-svs-wwumrat cold products. Ibuprofen (Motrin and Advil): is used for fever, pain, and/or inflammation. It is considered an NSAID (Non-Steroidal Anti-Inflamatory Drug). Ibuprofen comes in 200 mg tablets/capsules, and can be dosed three tablets (600 mg total) every 6 hours. On rare occasion, NSAIDS can cause gastric (stomach) irritation such as gastritis, and even ulcers. Avoid NSAIDs if you develop upper abdominal discomfort or heartburn. Do not take NSAIDs if you take blood thinning medications or have a history of kidney failure. Acetaminophen & Ibuprofen: These medications can be taken as a rotation with a dose of medication every three hours. Example: Take a dose of Acetaminophen at noon, Ibuprofen at 3 PM, and Acetaminophen at 6 PM, continue the rotation so forth. Speak with a pharmacist if you have any questions regarding your home medications and interactions with over the counter medications. The following attachments cannot be sent through Care Everywhere.Influenza (Chinese)documented in this encounter [facility] 08-23-2024 Note Patient Name: [facility] Location: [address] [address] Date Of : Date Of Visit: 2005 08/23/2024 MRN# Provider: [id number] Anastasia Tejada DO Chief Complaint Patient presents with URI Pt reports cough, chills, fever, body aches, and s/t x 2 days. Assessment & Plan 1. Influenza B Pulse checks oseltamivir (Tamiflu) 75 MG capsule [id number] (Capmist DM) 60-15-400 mg Tab fluticasone propionate (Flonase Allergy Relief) 50 mcg/actuation nasal spray benzonatate (TESSALON) 100 MG capsule 2. Sore throat POC Strep A - Molecular 3. Flu-like symptoms POC Influenza A/B, Molecular 4. Suspected COVID-19 virus infection COVID-19, Molecular No follow-ups on file. Medical Decision Making Nontoxic-appearing, 18-year-old with viral-like symptoms x 2 days. POC COVID, flu, strep test done. Neg covid. She has influenza B. Negative strep. Patient has viral URI. Low suspicion for secondary infection including bacterial sinusitis, LRTI at this time. Patient would like to try Tamiflu. Symptomatic treatment discussed as well. Discussed the typical duration of influenza. School note given with the diagnosis listed as discussed. ED return precaution given. Follow-up with [facility] as needed. Patient was given opportunity to ask any questions, and all questions were answered appropriately. Patient understood and agreed. Stable at discharge. Portions of this note utilized [employer] dictation software. There is the possibility of grammatical or textual errors inherent to this technology that may be missed during proofreading. Additional Clinical Comments Discussed over the counter medications for symptomatic management and potential side effects of medications. Educated patient and/or guardian about signs and symptoms that would warrant immediate evaluation in the emergency room. Recommended that they should return to urgent care, make an appointment with their PCP, or go to the emergency room if symptoms persist or get acutely worse. Subjective 18 y.o. female presents with URI (Pt reports cough, chills, fever, body aches, and s/t x 2 days. ) URI This is a new problem. The current episode started in the past 7 days. Associated symptoms include congestion, coughing, ear pain (fullness), headaches, rhinorrhea and a sore throat. Pertinent negatives include no abdominal pain, chest pain, diarrhea, nausea or vomiting. Sx started night. No pcp here. Not . Denied chronic conditions. Taking tylenol. She was at a conference early this week. She's [employer] student. Review Of Systems Review of Systems Constitutional: Positive for chills, fatigue and fever. HENT: Positive for congestion, ear pain (fullness), postnasal drip, rhinorrhea, sinus pressure and sore throat. Eyes: Negative for visual disturbance. Respiratory: Positive for cough. Negative for shortness of breath. Cardiovascular: Negative for chest pain. Gastrointestinal: Negative for abdominal pain, diarrhea, nausea and vomiting. Musculoskeletal: Positive for myalgias. Neurological: Positive for headaches. Negative for dizziness, syncope and light-headedness. Medical History History reviewed. No pertinent past medical history. Past Surgical History: Procedure Laterality Date ARTHROSCOPY KNEE Left 09/21/2022 ORTHOPEDIC SURGERY Left 11/13/2022 Bone Spur RHINOPLASTY N/A 05/09/2021 There is no problem list on file for this patient. Social History Social History Tobacco Use Smoking status: Never Smokeless tobacco: Never Vaping Use Vaping status: Some Days Start date: 07/09/2020 Substances: Nicotine, Flavoring Devices: Disposable, Pre-filled or refillable cartridge Substance Use Topics Alcohol use: Not Currently Alcohol/week: 2.0 standard drinks of alcohol Types: 2 Glasses of wine per week Drug use: Never Family History No family history on file. Objective Physical Exam BP 125/87 (Patient Position: Sitting) Pulse (!) 118 Temp 100 degrees F (37.8 degrees C) (Oral) Resp 14 Ht 5' 7" Wt 91 kg (200 lb 9.6 oz) SpO2 96% BMI 31.42 kg/m Vision/Hearing Exam:No results found. Physical Exam Vitals and nursing note reviewed. Constitutional: General: She is not in acute distress. Appearance: She is well-developed. She is not toxic-appearing or diaphoretic. HENT: Head: Normocephalic and atraumatic. Right Ear: External ear normal. A middle ear effusion is present. No mastoid tenderness. Left Ear: External ear normal. A middle ear effusion is present. No mastoid tenderness. Nose: Congestion present. Mouth/Throat: Mouth: Mucous membranes are moist. Pharynx: Posterior oropharyngeal erythema (pharyngeal arch. clear drainage) present. No oropharyngeal exudate. Eyes: General: Right eye: No discharge. Left eye: No discharge. Conjunctiva/sclera: Conjunctivae normal. Cardiovascular: (more content not included)... [facility] 08-23-2024 History of Present illness Narrative Images from the original note were not included. Patient Name: [facility] Location: Cheyenne Hernandez [address] [place] [address] [address] [facility] [address] Date Of : Date Of Visit: 2005 08/23/2024 MRN# Provider: [id number] Anastasia Tejada DO Chief Complaint Patient presents with URI Pt reports cough, chills, fever, body aches, and s/t x 2 days. Assessment & Plan 1. Influenza B Pulse checks oseltamivir (Tamiflu) 75 MG capsule [id number]-[id number] (Capmist DM) 60-15-400 mg Tab fluticasone propionate (Flonase Allergy Relief) 50 mcg/actuation nasal spray benzonatate (TESSALON) 100 MG capsule 2. Sore throat POC Strep A - Molecular 3. Flu-like symptoms POC Influenza A/B, Molecular 4. Suspected COVID-19 virus infection COVID-19, Molecular No follow-ups on file. Medical Decision Making Nontoxic-appearing, 18-year-old with viral-like symptoms x 2 days. POC COVID, flu, strep test done. Neg covid. She has influenza B. Negative strep. Patient has viral URI. Low suspicion for secondary infection including bacterial sinusitis, LRTI at this time. Patient would like to try Tamiflu. Symptomatic treatment discussed as well. Discussed the typical duration of influenza. School note given with the diagnosis listed as discussed. ED return precaution given. Follow-up with [facility] as needed. Patient was given opportunity to ask any questions, and all questions were answered appropriately. Patient understood and agreed. Stable at discharge. Portions of this note utilized [employer] dictation software. There is the possibility of grammatical or textual errors inherent to this technology that may be missed during proofreading. Additional Clinical Comments Discussed over the counter medications for symptomatic management and potential side effects of medications. Educated patient and/or guardian about signs and symptoms that would warrant immediate evaluation in the emergency room. Recommended that they should return to urgent care, make an appointment with their PCP, or go to the emergency room if symptoms persist or get acutely worse. Subjective 18 y.o. female presents with URI (Pt reports cough, chills, fever, body aches, and s/t x 2 days. ) URI This is a new problem. The current episode started in the past 7 days. Associated symptoms include congestion, coughing, ear pain (fullness), headaches, rhinorrhea and a sore throat. Pertinent negatives include no abdominal pain, chest pain, diarrhea, nausea or vomiting. Sx started night. No pcp here. Not . Denied chronic conditions. Taking tylenol. She was at a conference early this week. She's [employer] student. Review Of Systems Review of Systems Constitutional: Positive for chills, fatigue and fever. HENT: Positive for congestion, ear pain (fullness), postnasal drip, rhinorrhea, sinus pressure and sore throat. Eyes: Negative for visual disturbance. Respiratory: Positive for cough. Negative for shortness of breath. Cardiovascular: Negative for chest pain. Gastrointestinal: Negative for abdominal pain, diarrhea, nausea and vomiting. Musculoskeletal: Positive for myalgias. Neurological: Positive for headaches. Negative for dizziness, syncope and light-headedness. Medical History History reviewed. No pertinent past medical history. Past Surgical History: Procedure Laterality Date ARTHROSCOPY KNEE Left 09/21/2022 ORTHOPEDIC SURGERY Left 11/13/2022 Bone Spur RHINOPLASTY N/A 05/09/2021 There is no problem list on file for this patient. Social History Social History Tobacco Use Smoking status: Never Smokeless tobacco: Never Vaping Use Vaping status: Some Days Start date: 07/09/2020 Substances: Nicotine, Flavoring Devices: Disposable, Pre-filled or refillable cartridge Substance Use Topics Alcohol use: Not Currently Alcohol/week: 2.0 standard drinks of alcohol Types: 2 Glasses of wine per week Drug use: Never Family History No family history on file. Objective Physical Exam BP 125/87 (Patient Position: Sitting) Pulse (!) 118 Temp 100 F (37.8 C) (Oral) Resp 14 Ht 5' 7" Wt 91 kg (200 lb 9.6 oz) SpO2 96% BMI 31.42 kg/m Vision/Hearing Exam:No results found. Physical Exam Vitals and nursing note reviewed. Constitutional: General: She is not in acute distress. Appearance: She is well-developed. She is not toxic-appearing or diaphoretic. HENT: Head: Normocephalic and atraumatic. Right Ear: External ear normal. A middle ear effusion is present. No mastoid tenderness. Left Ear: External ear normal. A middle ear effusion is present. No mastoid tenderness. Nose: Congestion present. Mouth/Throat: Mouth: Mucous membranes are moist. Pharynx: Posterior oropharyngeal erythema (pharyngeal arch. clear drainage) present. No oropharyngeal exudate. Eyes: General: Right eye: No discharge. Left eye: No discharge. Conjunctiva/sclera: Conjunctivae normal. Cardiovascular: Rate and Rhythm: Regular rhythm. Tachycardia present. Heart sounds: No murmur heard. Pulmonary: Effort: Pulmonary effort is normal. No respiratory distress. Breath sounds: No stridor. No wheezing, rhonchi or rales. Comments: Neg egophony. Abdominal: General: There is no distension. Musculoskeletal: General: Normal range of motion. Cervical back: Normal range of motion and neck supple. No rigidity or tenderness. Lymphadenopathy: Cervical: No cervical adenopathy. Skin: Findings: No rash. Neurological: General: No focal deficit present. Mental Status: She is alert. Psychiatric: Behavior: Behavior normal. Thought Content: Thought content normal. Judgment: Judgment normal. Procedure Notes Procedures Results Recent Results (from the past week) COVID-19, Molecular Collection Time: 08/23/24 11:12 AM Specimen: Nasal; Swab Result Value Ref Range SARS-CoV-2 Not Detected Not Detected POC Influenza A/B, Molecular Collection Time: 08/23/24 11:13 AM Result Value Ref Range Influenza A, Molecular Negative Negative Influenza B, Molecular Positive (A) Negative No orders to display Orders Placed This Visit Orders Placed This Encounter Procedures Pulse checks POC Influenza A/B, Molecular COVID-19, Molecular POC Strep A - Molecular Medication List At End Of Visit Current Outpatient Medications Medication Sig Dispense Refill etonogestreL-ethinyl estradioL (NUVARING) 0.12-0.015 mg/24 hr vaginal ring Insert 1 (one) each into the vagina See Admin Instructions . benzonatate (TESSALON) 100 MG capsule Take 1 (one) capsule (100 mg total) by mouth 3 (three) times a day as needed for cough . 20 capsule 0 fluticasone propionate (Flonase Allergy Relief) 50 mcg/actuation nasal spray Instill 2 (two) sprays into each nostril nightly 2 spray each nostril . 16 mL 0 oseltamivir (Tamiflu) 75 MG capsule Take 1 (one) capsule (75 mg total) by mouth 2 (two) times a day for 5 days . 10 capsule 0 epxujzmuvviullh-KR-rwhdJBEvdwr (Capmist DM) 60-15-400 mg Tab Take 1 (one) tablet by mouth every 6 (six) hours as needed (cough, congestion) . 30 tablet 0 No current facility-administered medications for this visit. Patient Instructions At home instruction Lots of fluid and rest You can alternate between ibuprofen and Tylenol for fever, chills, body aches Stay home until you are fever free for 24 hours without use of ibuprofen, Tylenol and your symptoms are improving Take capmist every 6 hr as needed for cough/congestion Take tessalon perles 3 times a day as needed for cough Use flonase 2 sprays each nostril at bedtime to help with nasal congestion, post nasal drainage Try honey, humidifier to help with cough Any acutely worsening symptoms, such as persistent fever over 5 days, shortness of breath, chest pain, dizziness, inability to eat or drink, please go to emergency department Follow up with [facility] as needed School note given Take tamiflu as instructed DISCHARGE INSTRUCTIONS: Acetaminophen & Ibuprofen Acetaminophen (Tylenol): is used for fever and pain. It comes in regular strength (325 mg) and extra strength (500 mg). I recommend two ES tablets (1000 mg) every 6 hours. Do not take more than 4 total doses (4,000 mg) in a 24-hour period. Do not take if you have liver problems. Use Tylenol with caution when using other Tylenol containing medications, such as Percocet, [place] and/or some hebl-byd-bwekokm cold products. Ibuprofen (Motrin and Advil): is used for fever, pain, and/or inflammation. It is considered an NSAID (Non-Steroidal Anti-Inflamatory Drug). Ibuprofen comes in 200 mg tablets/capsules, and can be dosed three tablets (600 mg total) every 6 hours. On rare occasion, NSAIDS can cause gastric (stomach) irritation such as gastritis, and even ulcers. Avoid NSAIDs if you develop upper abdominal discomfort or heartburn. Do not take NSAIDs if you take blood thinning medications or have a history of kidney failure. Acetaminophen & Ibuprofen: These medications can be taken as a rotation with a dose of medication every three hours. Example: Take a dose of Acetaminophen at noon, Ibuprofen at 3 PM, and Acetaminophen at 6 PM, continue the rotation so forth. Speak with a pharmacist if you have any questions regarding your home medications and interactions with over the counter medications. documented in this encounter [facility] 08-13-2024 Telephone encounter Note Patient called in and needs mail order pharmacy now d/t insurance change. Last annual 07/07/24. Requested Prescriptions Pending Prescriptions Disp Refills Etonogestrel-Ethinyl Estradiol (NUVARING) 0.12-0.015 mg/24 hr vaginal ring 4 Each 3 Sig: Use 1 Each vaginally as directed. INSERT ONE(1) RING VAGINALLY AND LEAVE IN PLACE FOR THREE WEEKS, THEN REMOVE FOR 1 WEEK. Lizeth Estevez RN [facility] 08-13-2024 Miscellaneous Notes Patient called in and needs mail order pharmacy now d/t insurance change. Last annual 07/07/24. Requested Prescriptions Pending Prescriptions Disp Refills Etonogestrel-Ethinyl Estradiol (NUVARING) 0.12-0.015 mg/24 hr vaginal ring 4 Each 3 Sig: Use 1 Each vaginally as directed. INSERT ONE(1) RING VAGINALLY AND LEAVE IN PLACE FOR THREE WEEKS, THEN REMOVE FOR 1 WEEK. Lizeth Estevez RN documented in this encounter [facility] 07-07-2024 Duran Chavez APRN.[facility] - 07/07/2024 8:12 AM EST A 3-dose schedule is recommended for people who get the first dose on or after their 15th birthday, and for people with certain immunocompromising conditions. In a 3-dose series, the second dose should be given 1-2 months after the first dose, and the third dose should be given 6 months after the first dose (0, 1-2, 6-month schedule). The minimum intervals are 4 weeks between the first and second dose, 12 weeks between the second and third doses, and 5 months between the first and third doses. If a vaccine dose is administered after a shorter interval, it should be re-administered after another minimum interval has elapsed since the most recent dose. If the vaccination schedule is interrupted, vaccine doses do not need to be repeated (no maximum interval). [facility] s Smoking Cessation Program The [facility] Smoking Cessation Program is a comprehensive, multifaceted program that can be tailored to your individual needs. We offer a variety of services designed to help you throughout the process, including office visits, distance health visits (virtual or telephone), and the eCoach program or pharmacy consultations. To schedule, call [phone] Appointments: An office visit: This is a one-on-one approach where you go to an office and meet with the provider to discuss your options for quitting. Distance health visits: This type of visit can be completed via virtual visit or telephone visit. Virtual visits require a smartphone, tablet or computer with access to a webcam, microphone and Internet connection. You will need to sign up for [employer] prior to your virtual visit. Telephone visits can be completed via audio only if patient does not have access to the above Pharmacotherapy Nicotine replacement therapy (patches, gum, lozenges, inhalers or nasal spray) Bupropion (Wellbutrin) Chantix Integrative and Lifestyle Medicine Services: Acupuncture Holistic Psychotherapy Meditation Yoga And more The eCoach program Expert tips tailored to you Behavioral replacements Recognizing individual triggers On your schedule Pharmacy consultation You can meet with a pharmacist (either online or in person) to discuss smoking cessation medications, including: Nicotine replacement therapy: gum, patches, lozenges, inhalers or nasal spray Bupropion SR Varenicline (Chantix ) The [place] Cancer Society (ACS) has a section devoted to quitting tobacco with information on where to get help, interactive tools, the relationship of tobacco and cancer, how to keep your kids smoke-free, smoke-free communities and the ACS s annual [place] Smokeout. Visit this link for more info: https://www.cancer.org/cancer/ris k-prevention/tobacco/guide-quitti ng-smoking.html The [place] Lung Association has tools, tips, support and fact sheets to help you stop smoking or to help a loved one quit. There s also more information about [place] From Smoking , the program we use in our smoking classes at [facility]. Visit this link for more info: https://www.lung.org/quit-smoking /dqjt-ootsckx-rcid-smoking The National Cancer [place] s site, Smokefree.gov, has an abundance of free and accurate resources to encourage smokers to stop: Smokefree apps for your smartphone offer individualized guidance once you input your information You can sign up for the [employer]oke[employer] text messaging program, which sends you daily text messages with encouragement, tips and advice to help making quitting easier Create a personalized Quit Plan by choosing a quit date and answering seven questions Take a quiz on your withdrawal symptoms See how you can prepare to quit 1-429-GNNL-NOW is the national portal to a network of state quitlines. Quitlines offer evidence-based support--like counseling, referrals to local programs, and free medication--to people who want to quit tobacco. documented in this encounter [facility] 07-07-2024 Note HNO ID: [id number] Author: DURAN EVANS APRN.CNP Service: ? Author Type: Nurse Practitioner Type: Progress Notes Filed: 07/07/2024 08:23 Note Text: Cheyenne is a 18 year old who presents for an annual gynecologic exam with complaints, fatigue . Presents: alone Cycles every month, flow lasting 3-4 days Contraception: NuvaRing HPV vaccine: 1 dose 2018 Last pap smear: never History of abnormal pap: N/A Bothersome pelvic pain: No Sexually Active: Yes, monogamous relationship OB History T0 L0 SAB0 IAB0 Ectopic0 Multiple0 Live Births0 Women Nurse History LMP: 07/06/2024, IUD Age at Menarche: 11 Age at First : Age at Menopause: Women Nurse History Comments: Sexual Activity: Yes; Male; Nuvaring Contraception: Inserts Menstrual Tracking History Flowsheet Row Office Visit from 07/07/2024 in OB/Gynecology Period Cycle (Days) 25 Period Duration (Days) 4 Menstrual Flow Moderate PAST MEDICAL HISTORY Diagnosis Date NEGATIVE MEDICAL HISTORY PAST SURGICAL HISTORY Procedure Laterality Date FOOT SURGERY HX 11/2022 IUD REMOVAL 11/30/2023 KNEE SURGERY HX Left 09/2022 RHINOPLASTY 05/2021 FAMILY HISTORY Problem Relation Age of Onset Asthma Brother Stroke Maternal Grandmother Cancer Maternal Grandmother SOCIAL HISTORY Social History Tobacco Use Smoking status: Never Smokeless tobacco: Never Vaping Use Vaping status: Some Days Substances: Nicotine Substance Use Topics Alcohol use: Yes Drug use: Never REVIEW OF SYSTEMS Abdomen: No bloating, early satiety, indigestion, or increased flatulence. No abdominal pain, nausea, vomiting, diarrhea, or constipation. +hemorrhoids Bladder: No dysuria, gross hematuria, urinary frequency, urinary urgency, or incontinence. Breast: No breast lumps, nipple d/c, overlying skin changes, redness or skin retraction. Allergies and current medication updated:Yes SENSITIVE EXAM: Sensitive exam declined. Discussed rationale and impact on treatment. EXAM: BP 120/74 Ht 5' 7" (1.70m) Wt 202 lb (91.6kg) LMP 07/06/2024 BMI 31.63 kg/(m2). GENERAL: pleasant, in no apparent distress HEENT: Normocephalic, atraumatic, mucus membranes moist, and no lesions BREAST: deferred CHEST: Normal inspiratory effort NEURO: alert and oriented x3,exam grossly non-focal EXTREMITIES: normal ASSESSMENT/PLAN: 1) Health maintenance: - Declines exam today Pap starting at the age of 21. Safe sex practices reviewed. Self breast awareness encouraged. Nutrition, exercise, and routine health maintenance exams reviewed. Smoking cessation encouraged and resources provided. HPV vaccine received 1 dose, discussed remaining doses. 2) Contraception: Nuva Ring. No history of migraines with aura, VTE history or clotting disorder, hypertension, or liver issues. Vapes - reviewed increased risk and recommend cessation. 3) STD screening: Declined STD check. 4) Follow up one year or sooner as needed. Malaise and fatigue - ICD9: 780.79, ICD10: R53.81, R53.83 - COMPLETE BLOOD COUNT - COMPREHENSIVE METABOLIC PANEL - VITAMIN D 25 HYDROXY - HEMOGLOBIN A1C - GLUCOSE, FASTING - INSULIN ASSAY BLOOD - THYROID STIMULATING HORMONE - T4 FREE/FREE THYROXINE Duran Evans APRN.[facility] 07-07-2024 History of Present illness Narrative Cheyenne is a 18 year old who presents for an annual gynecologic exam with complaints, fatigue . Presents: alone Cycles every month, flow lasting 3-4 days Contraception: NuvaRing HPV vaccine: 1 dose 2019 Last pap smear: never History of abnormal pap: N/A Bothersome pelvic pain: No Sexually Active: Yes, monogamous relationship OB History T0 L0 SAB0 IAB0 Ectopic0 Multiple0 Live Births0 Women Nurse History LMP: 07/06/2024, IUD Age at Menarche: 11 Age at First : Age at Menopause: Women Nurse History Comments: Sexual Activity: Yes; Male; Nuvaring Contraception: Inserts Menstrual Tracking History Flowsheet Row Office Visit from 07/07/2024 in OB/Gynecology Period Cycle (Days) 23 Period Duration (Days) 4 Menstrual Flow Moderate PAST MEDICAL HISTORY Diagnosis Date NEGATIVE MEDICAL HISTORY PAST SURGICAL HISTORY Procedure Laterality Date FOOT SURGERY HX 11/2022 IUD REMOVAL 11/30/2023 KNEE SURGERY HX Left 09/2022 RHINOPLASTY 05/2021 FAMILY HISTORY Problem Relation Age of Onset Asthma Brother Stroke Maternal Grandmother Cancer Maternal Grandmother SOCIAL HISTORY Social History Tobacco Use Smoking status: Never Smokeless tobacco: Never Vaping Use Vaping status: Some Days Substances: Nicotine Substance Use Topics Alcohol use: Yes Drug use: Never REVIEW OF SYSTEMS Abdomen: No bloating, early satiety, indigestion, or increased flatulence. No abdominal pain, nausea, vomiting, diarrhea, or constipation. +hemorrhoids Bladder: No dysuria, gross hematuria, urinary frequency, urinary urgency, or incontinence. Breast: No breast lumps, nipple d/c, overlying skin changes, redness or skin retraction. Allergies and current medication updated:Yes SENSITIVE EXAM: Sensitive exam declined. Discussed rationale and impact on treatment. EXAM: BP 120/74 Ht 5' 7" (1.70m) Wt 202 lb (91.6kg) LMP 07/06/2024 BMI 31.63 kg/(m^2). GENERAL: pleasant, in no apparent distress HEENT: Normocephalic, atraumatic, mucus membranes moist, and no lesions BREAST: deferred CHEST: Normal inspiratory effort NEURO: alert and oriented x3,exam grossly non-focal EXTREMITIES: normal ASSESSMENT/PLAN: 1) Health maintenance: - Declines exam today Pap starting at the age of 21. Safe sex practices reviewed. Self breast awareness encouraged. Nutrition, exercise, and routine health maintenance exams reviewed. Smoking cessation encouraged and resources provided. HPV vaccine received 1 dose, discussed remaining doses. 2) Contraception: Nuva Ring. No history of migraines with aura, VTE history or clotting disorder, hypertension, or liver issues. Vapes - reviewed increased risk and recommend cessation. 3) STD screening: Declined STD check. 4) Follow up one year or sooner as needed. Malaise and fatigue - ICD9: 780.79, ICD10: R53.81, R53.83 - COMPLETE BLOOD COUNT - COMPREHENSIVE METABOLIC PANEL - VITAMIN D 25 HYDROXY - HEMOGLOBIN A1C - GLUCOSE, FASTING - INSULIN ASSAY BLOOD - THYROID STIMULATING HORMONE - T4 FREE/FREE THYROXINE Duran Evans APRN.RENT COLLECTOR documented in this encounter [facility] 06-09-2024 Telephone encounter Note Last OV 11/30/23. Requested Prescriptions Pending Prescriptions Disp Refills Etonogestrel-Ethinyl Estradiol (NUVARING) 0.12-0.015 mg/24 hr vaginal ring 4 Each 1 Sig: Use 1 Each vaginally as directed. INSERT ONE(1) RING VAGINALLY AND LEAVE IN PLACE FOR THREE WEEKS, THEN REMOVE FOR 1 WEEK. Please sent [facility] ring to [facility] [place] and additional script/refills to [facility] please per Pt request. Ju Peña RN [facility] 06-09-2024 Miscellaneous Notes Last OV 11/30/23. Requested Prescriptions Pending Prescriptions Disp Refills Etonogestrel-Ethinyl Estradiol (NUVARING) 0.12-0.015 mg/24 hr vaginal ring 4 Each 1 Sig: Use 1 Each vaginally as directed. INSERT ONE(1) RING VAGINALLY AND LEAVE IN PLACE FOR THREE WEEKS, THEN REMOVE FOR 1 WEEK. Please sent [facility] to [facility] [place] and additional script/refills to [facility] please per Pt request. Ju Peña RN documented in this encounter [facility] 04-02-2024 Note Patient Name: [facility] Location: [place] [id number] Date Of : Date Of Visit: 2005 04/02/2024 MRN# Provider: [id number] Feng Tolentino CNP Chief Complaint Patient presents with Sore Throat X3 days- s/t Xtoday- chills, JONES, congestion, cough Assessment & Plan No diagnosis found. No follow-ups on file. Medical Decision Making 18-year-old female afebrile normotensive heart sounds are S1-S2 regular rate and rhythm breathing is nonlabored lung sounds are clear throughout sinus turbinates are boggy with rhinorrhea oropharynx is erythematous no tonsillar enlargement uvula is midline no petechia or bulge soft palate no exudate. No cervical lymphadenopathy TMs are unremarkable. Patient is given a prescription for capmist for sinus congestion and cough. Patient wishes for COVID strep and flu testing at this time. COVID strep and flu were all negative. We discussed proposed course convalescence. We discussed signs and symptoms that would warrant reevaluation. We discussed use of Tylenol and ibuprofen as antipyretics and pain relievers. Patient acknowledges understanding plan of care and is amenable. Additional Clinical Comments Discussed over the counter medications for symptomatic management and potential side effects of medications. Educated patient and/or guardian about signs and symptoms that would warrant immediate evaluation in the emergency room. Recommended that they should return to urgent care, make an appointment with their PCP, or go to the emergency room if symptoms persist or get acutely worse. Subjective 18 y.o. female presents with Sore Throat (X3 days-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 disintegrating tablet Dissolve 1 (one) tablet (4 mg total) on top of tongue every 8 (eight) hours as needed for nausea . (Patient not taking: Reported on 08/27/2023 .) 20 tablet 0 polyethylene glycol (MIRALAX) 17 gram powder Take 17 (seventeen) g by mouth daily for 7 days . (Patient not taking: Reported on 08/28/2023 .) 7 packet 0 senna-docusate (SENNA-S) 8.6-50 mg Take 1 (one) tablet by mouth daily . (Patient not taking: Reported on 08/28/2023 .) 30 tablet 11 No current facility-administered medications for this visit. Whitney King Please note that portions of this note may have been completed with a voice recognition program ([employer]). Efforts were made to edit the dictations but occasionally words are mis-transcribed. Associated attestation - Sunil Lopes CNP - 08/28/2023 7:17 PM EST ADDENDUM: I agree with the nurse practitioner student's A/P and documentation. I personally verified the history of present illness and performed an independent physical examination to verify the nurse practitioner students findings. All pertinent side effects, risks, benefits and precautions of suggested treatments were discussed in detail. The patient understands and is agreeable with the above plan. Sunil oLpes CNP documented in this encounter [facility] 08-14-2023 Telephone encounter Note See [employer] message: [facility] US order faxed via [employer] to the above location/fax. Yanna Whittaker RN [facility] 08-14-2023 Telephone encounter Note Patient is at [facility] in [place] and will not be back home any time soon. Patient is going to contact her [facility] to see where she can have an order faxed for an ultrasound. [facility] 08-14-2023 Telephone encounter Note The bleeding is normal. The pain is not. Some women have some pain while their body is adjusting. Check pelvic US and then If it is not improving send a [employer] message and we can go from there. Susanna Arango MD [facility] 08-14-2023 Telephone encounter Note Pt calling and stated that she had a Mirena inserted on 06/27/23 and had a steady light flow of bleeding daily. She also reports that about twice weekly she will have moderate to severe pain on her RLQ. She describes it as stabbing, burning. Pt stating it will last for several hours and then will subside. She states that hunching over in a ball provides some relief but does not totally relieve it. Heating pad, NSAIDS provide no relief. Pt denies any constipation. Pt is unable to say what makes it better or worse. Please advise further. Whitney Bailey LPN [facility] 06-21-2023 History of Present illness Narrative Cheyenne is a 17 year old who presents for an annual gynecologic exam without complaints. MEnses in the past were heavy and crampy. Has been better on OCPs and has been on 3 years but has gained wt and would like something she doesn't have to remember to take everyday. One partner in past year. Presents: alone Menses: cycles every 28 days and 5 days of flow. Contraception: combined hormonal contraceptives HPV vaccine: not sure if completed series Last pap smear: never Sexually active: Yes History of STDS: None OB History T0 L0 SAB0 IAB0 Ectopic0 Multiple0 Live Births0 Women Nurse History LMP: 06/15/2023 (Exact Date), Having periods Age at Menarche: Age at First : Age at Menopause: Women Nurse History Comments: Sexual Activity: Yes; Male Contraception: No contraception data on record PAST MEDICAL HISTORY Diagnosis Date NEGATIVE MEDICAL HISTORY PAST SURGICAL HISTORY Procedure Laterality Date FOOT SURGERY HX 11/2022 KNEE SURGERY HX Left 09/2022 RHINOPLASTY 05/2021 FAMILY HISTORY Problem Relation Age of Onset Asthma Brother Stroke Maternal Grandmother Cancer Maternal Grandmother SOCIAL HISTORY Social History Tobacco Use Smoking status: Never Smokeless tobacco: Never Vaping Use Vaping Use: Some days Substances: Nicotine Substance Use Topics Alcohol use: Yes Drug use: Never REVIEW OF SYSTEMS Abdomen: no changes, does have some IBS Bladder: No dysuria, gross hematuria, urinary frequency, urinary urgency, or incontinence. Breast: No breast lumps, nipple d/c, overlying skin changes, redness or skin retraction. Allergies and current medication updated:Yes EXAM: BP 112/78 Ht 5' 7" (1.70m) Wt 180 lb (81.6kg) LMP 06/15/2023 BMI 28.19 kg/(m^2). GENERAL: pleasant, in no apparent distress HEENT: Normocephalic, atraumatic, mucus membranes moist, and no lesions NECK: Supple, full range of motion, no adenopathy, and thyroid normal DERMATOLOGY: Normal, without lesions, non-icteric, and non-hirsute BREAST: deferred CHEST: Normal inspiratory effort ABDOMEN: soft, non-tender, and no masses PELVIC: deferred BIMANUAL: deferred NEURO: alert and oriented x3,exam grossly non-focal EXTREMITIES: normal ASSESSMENT/PLAN: 1) Health maintenance: Pap starting at the age of 21. Safe sex practices reviewed. HPV vaccine discussed, will check w/ mother but thinks she completed series. 2) Contraception: combined hormonal contraceptives. Contraceptive options reviewed and information provided. 3) STD screening: Declined STD check. 4) Follow up one year or sooner as needed. r/b/a to various contraceptive options reviewed, desires IUD insertion. Pretreat w/ motrin and misoprostol. Susanna Arango MD documented in this encounter [facility] 02-19-2023 Discharge summary Note Date/Time February 19, 2023 1:44pm [facility] [address] [place] [address] / REHABILITATION SERVICES DISCHARGE SUMMARY MR#: [id number] Acct: [id number] Name: CHEYENNE HERNANDEZ Rep #: [id number] : 2005 17 From: Cert. PEDRO Mullen, OCS Referring Dr.: Dr. Veronique Upton MD Status: REG R Insurance: [facility] [id number] SELF PAY INSURANCE Discharge Summary D/C summary: It has been my pleasure to treat CHEYENNE HERNANDEZ referred by Dr. Veronique Boyd MD, with the diagnosis of TENDINITIS OF LEFT FOOT for a total of 14 visit(s). Discharge Date: 02/19/23 Please see the following information for a summary of their discharge status. Subjective Subjective: DOING GREAT Pain L ankle: Pain Intensity (Out of 10): 0 Overall Improvement % Improvement: 100 Objective Objective/Function: POSTURE: frontal plan mechanics normal arch. GAIT: Ambulates with slight antalgic gait left side. NEURO: mild paresthesia left foot. INSCION : well approximate. FLEXABILITY: calf mod tight. AROM: dorsiflexion 10 degrees ,plantar flexion 65 degrees ,inversion 40 degrees ,inversion 5degrees. MMT: ( peak force) dorsiflexion 34.6 ,posterior tibialis 28,2 ,peroneus 23.9. PROPRIOCEPTION: NORMAL NO PAIN WITH RUNNING AND JUMPING Goals Goal 1:: This patient to be I with HEP ankle Goal Progress: Goal Met Goal 2:: Patient to demonstrate 75% improvement with decrease pain and improved function. Goal Progress: Goal Met Goal 3:: Patient to improve AROM ankle WNL symmetrical left compared to tight toimprove gait Goal Progress: Goal Met Goal 4:: Patient to improve peak force of ankle by 10 # to improve gait and function. Goal Progress: Goal Met Goal 5:: Patient to LFES score by 10 points or> to improve QOL and function Goal Progress: Goal Met Plan Plan: D/C HEP RTS D/C Information d/c sentence: If there are questions or concerns regarding this patient's physical therapy, please feel free to call me at [phone]. Thank you for the referral of thispatient. Sincerely, Mila Haywood, PT, Cert MDT, OCS Balance/Gait/Functional tests Balance/Special Test Scores Lower Extremity Functional Score: 80 <Electronically signed by Mila Haywood PT, Cert. MDT, OCS> 02/19/23 1344 CC: Dr. Amber Galindo MD; Dr. Veronique Upton MD ~ JLA Signed [facility] Work Phone: 1(334) 948-789604-26-2023 Discharge summary Author Sadiq Mauricio [facility] November 01, 2022 3:32pm Note Date/Time November 01, 2022 3:3 2pm [facility] [address] [place] [address] [address] [place] [address] / REHABILITATION SERVICES DISCHARGE SUMMARY MR#: [id number] Acct: [id number] Name: CHEYENNE HERNANDEZ Rep #: [id number] : 2005 16 From: Sadiq Mauricio DPT, OCS, CSCS Referring Dr.: Dr. Benoit Claros MD Status: REG R Insurance: [facility] [id number] SELF PAY INSURANCE It has been my pleasure to treat CHEYENNE HERNANDEZ referred by Dr. Benoit Claros MD, with the diagnosis of L patella sublux s/p scope 09/14/22 fora total of 13 visit(s). Discharge Date: Please see the following information for a summary of their discharge status. Subjective: A lot better. I got all my motion. Pain is good at rest. Squatting and lateral movments give 3/10 transiently. Sleep is fine. Activitiesare normal outside of volleyball and squatting. Steps are OK. Saw doctor last Sunday and everything looks good. Will f/u in 8 weeks. Needs to work on squatting, jumping and lateral movements. Wants to play club volleyball [employer]. Wants to be discharged to HEP vs continue with agility and plyo until afterher foot surgery in two weeks. L knee pain Pain Intensity (Out of 10): 0 % Improvement: 85 Objective/Function: Walks normal, steps reciprocal and normal even two at a time. Full aROM with just slight discomfort end range R flexion, SLR without lag easily. richard with slight trasnient discomfort slightly avoiding R. Jumpsawkward but able, single leg hop is awkward on R. Squat is symmetrical and slightly uncomfortable on R Goal 1:: ST: walk normal without gait deviations Goal Progress: Goal Met Goal 2:: steps reciprocal without pain Goal Progress: Goal Met Goal 3:: 0-138 AROM L knee without pain and 0 ext lag SLR x 10 Goal Progress: Goal Met Goal 4:: LEFS score 72 Goal Progress: Goal Met Goal 5:: Patient ready to attempt volleyball and jogging Goal Progress: Progressing Plan: d/c , pt to have foot surgery in two weeks and willk cotninue HEP until then, return to sport activities as needed, will be done after foot surgery if orderred. If there are questions or concerns regarding this patient's physical therapy, please feel free to call me at [phone]. Thank you for the referral of thispatient. Sincerely, Sadiq Mauricio, CIERA, OCS, CSCS Balance/Gait/Functional tests - Balance/Special Test Scores Lower Extremity Functional Score: 72 <Electronically signed by Sadiq Mauricio DPT, OCS, CSCS> 11/01/22 1532 CC: Dr. Amber Galindo MD; Dr. Benoit Claros MD ~ EBG Signed [facility] Work Phone: 1(310) 207-779303-26-2023 Hospital Discharge instructions Additional Instructions You received a phone call from the hospital tomorrow to return for an ultrasound of your leg to rule out blood clot. Please follow-up with your orthopedic surgeon this week.[facility] Work Phone: Evaluation noteNo assessment information available [facility] Work Phone: Evaluation note* Diagnosis Onset Date Resolution Status Neck pain acute Segmental and somatic dysfunction of cervical region acute Segmental and somatic dysfunction of lumbar region acute Segmental and somatic dysfunction of pelvic region acute Segmental and somatic dysfunction of thoracic region acute Neck pain acute Segmental and somatic dysfunction of cervical region acute Segmental and somatic dysfunction of lumbar region acute Segmental and somatic dysfunction of pelvic region acute Segmental and somatic dysfunction of thoracic region acute Neck pain acute Segmental and somatic dysfunction of cervical region acute Segmental and somatic dysfunction of lumbar region acute Segmental and somatic dysfunction of pelvic region acute Segmental and somatic dysfunction of thoracic region acute Back pain noneactive [facility] Work Phone: Evaluation note* Diagnosis Encounter for gynecological examination (general) (routine) without abnormal findings- Primary Encounter for initial prescription of other contraceptives Encounter for IUD insertion Encounter for insertion of intrauterine contraceptive device documented in this encounter [facility] note* Diagnosis Right lower quadrant abdominal pain- Primary Pelvic pain in female Unspecified symptom associated with female genital organs documented in this encounter [facility] note* Diagnosis Post concussive syndrome- Primary Postconcussion syndrome documented in this encounter [facility] note* Diagnosis Post concussive syndrome- Primary Postconcussion syndrome Post concussive syndrome Postconcussion syndrome documented in this encounter [facility] note* Diagnosis IUD (intrauterine device) in place- Primary Presence of intrauterine contraceptive device Pelvic pain in female Unspecified symptom associated with female genital organs documented in this encounter [facility] note* Diagnosis Encounter for management of intrauterine contraceptive device (IUD), unspecified IUD management type- Primary Pelvic pain in female Unspecified symptom associated with female genital organs documented in this encounter [facility] note* Diagnosis Pelvic pain in female- Primary Unspecified symptom associated with female genital organs documented in this encounter [facility] note* Diagnosis Encounter for IUD removal- Primary Encounter for removal of intrauterine contraceptive device documented in this encounter [facility] note* Diagnosis Encounter for gynecological examination (general) (routine) without abnormal findings- Primary Encounter for surveillance of vaginal ring hormonal contraceptive device Malaise and fatigue Other malaise and fatigue documented in this encounter [facility] note* Diagnosis Encounter for surveillance of vaginal ring hormonal contraceptive device documented in this encounter [facility] note* Diagnosis Influenza B- Primary Influenza with other respiratory manifestations Sore throat Acute pharyngitis Flu-like symptoms Suspected COVID-19 virus infection [facility]* Diagnosis Radiculopathy, lumbar region- Primary Thoracic or lumbosacral neuritis or radiculitis, unspecified [facility]* Diagnosis Left foot pain- Primary Pain in soft tissues of limb [facility]* Diagnosis Onset Date Resolution Status Admit Date Paresthesia of foot, bilateral acute April 06, 2025 9:51am Reed Griggs virus infection suspect ed April 06, 2025 9:51am [facility] Work Phone: Hospital Discharge instructions Additional Instructions Ankle x-ray negative for fracture. Bon wrap Aircast to support. Use your crutches as needed. Continue ibuprofen up to 600 mg every 6 hours for next 2 days and as needed. Continue ice. Follow-up with your doctors.[facility] Work Phone: Instructions* Attachments The following attachments cannot be sent through Care Everywhere. * Acute Concussion (Chinese) [facility] Author Melvin Cutler [facility] Note Date/Time April 06, 2025 10:43am [facility] [address] [place] [address], [address] [place] [address] OFFICE VISIT Date of Service: 04/06/25 MR#: [id number] Acct: [id number] Name: CHEYENNE HERNANDEZ Rep # : [id number] : 2005 Provider: Dr. Samir Cutler MD Age/Sex: 19/F Location: [facility] Status: Signed HPI HPI Chief Complaint: est care Details: The patient is a 19-year-old right -handed female who presents to [facility]. She was referred 10/28/[address] Sunil Paniagua with [facility] for paresthesia of lower extremity top left foot, but recently the top right foot has started to hurt and go numb. This lady presents by herself for evaluation of the above symptoms. She tells me that left foot symptoms began about 5 years ago. Right foot symptoms began within the past few months. Patient has had significant left foot symptoms with pain and dysfunction. Her initial evaluation by an orthopedist resulted in surgery and ankle spur which may have been compromising the Achilles tendon. Patient subsequently had difficulties and what appeared to be the first tarsometatarsal region of the left foot. Patient has had surgery on the left foot for those symptoms. Patient tells me that following left foot surgery she developed numbness of the left foot. Initially the foot problem involves the entire foot but has gradually reduced toa small oval-shaped area just proximal to the 1st and 2nd toes at the head of the metatarsals. This appears to be a local nerve injury. Patient had extensive evaluations with imaging of the feet and of the back as well. She appears to have had an enthesiopathy in the region of the left first carpometacarpal joint. That is a stress reaction which the muscle insertion elevates the periosteum of the bone. (Shinsplints as an example of a similar problem). Patient had put on about 40 pounds of weight upon graduating from high school. She notes that she works on her feet for extended periods of time and may have symptoms related to walking on a hard surface. She has tried various shoes. She has tried orthotics as well. She does not seem to get relief. Evaluation for possible radiculopathy and neuropathy has been performed. She has had a recent EMG and nerve conduction study performed in November. This is performed at [facility] in [place] and his report is completely normal. NCV included lower extremities and upper extremities well. This study was reported as completely normal. No evidence of neuropathy identified. Patient's overall symptom complex suggest that the patient may be experiencing local pressure neuropathy from standing on her feet working on a hard surface. Patient has no other neurologic symptoms identified. There is a positive family history for diabetes in her mother. There is a positive family history for torn rotator cuffs in her father and brother involving the shoulders. Her father also has a torn labrum of the hip. Possible underlying connective tissue disorder may warrant consideration. Patient has seen veneer grader who did not identify an issue however. Patient did have an elevated CRP of 5 with an upper limit of 3 which is unimpressive. Patient patient is due to be evaluated by instructor decorating for possible pituitarydysfunction. Patient's pituitary is thought to be a possible problem because the patient had an elevated cortisol and an MRI of the adrenals was normal. Patient's elevation cortisol was 20 with an upper limit of 18 which appears relatively unimpressive. I did review patient's laboratory but after she left the clinic I noted that sheseemed to have very significant elevation Reed-Griggs virus titers. This is a possible explanation for fatigue and migratory aches and pains. I would recommend that the patient's primary care physician review the various titers that have been obtained on this patient is to relevancy to her overall symptom complex. I did suggest the patient maintain activity such as swimming as a method of maintaining muscle tone and perhaps relieving stress on her skeletal system. It is possible that if she does have an elevation in cortisol and a possible tendency for anesthesia for things that the patient may be at risk for further stress fractures and enthesiopathy's in general. ROS: HEENT: No head trauma headaches loss of vision difficulty swallowing. No epistaxis Respiratory: No shortness of breath. No hemoptysis Cardiac: No chest pain palpitations Abdomen: Obese positive for irritable bowel. Blood in stool. Hemorrhoid. Extremities: Enthesiopathy left foot is noted. Skin: Report of stretch diaz. (Another possible indicator of connective tissuedisorder this may be seen in Marfan's or Keya-Danlos although she does not specifically fit body habitus criteria.) Neurologic: No neurologic complaints with regard to seizures or strokes or central nervous system disorders. Exam Const Other: Blood pressure 110/77 pulse 68 respiration 16 temperature 98.2 O2 sat 99%. BMI 31.8%. General appearance that of lady in relatively good mood resting comfortably in chair HEENT: No evidence of head trauma. Respiratory: Breathing normally Cardiac: Regular rhythm Abdomen: Obese: Extremities: Without evidence of obvious trauma. Scars on left foot identified near the first tarsometatarsal joint and near the posterior aspect of the calcaneus. Skin: Intact observed areas. Abdomen not examined at this time. Neurologic: Mental status: Awake alert oriented x 3. Memory and language functions intact. Insight and judgment normal. Mood and affect appropriate. CN II-XII: Pupils equal round react light 3 to 4 mm. Fundi not examined. Visual chen full to confrontation. Extraocular muscles intact. Motor and sensory function face normal. Hearing swallowing phonation and tongue normal. Motor exam: No focal abnormality. Cerebellar: No cogwheeling rigidity tremor bradykinesia or ataxia. Reflexes: 1+ at biceps trace at knees 1+ at ankles toes down. Sensory exam: Intact to tactile and vibratory sense except for small area proximal to the left 1st and 2nd toe. Likely prior nerve injury. Station gait normal. Assessment and Plan Assessment and Plan (1) Paresthesia of foot, bilateral: Status: Acute Comment: Problem involves predominantly the left foot and appears to be enthesiopathy at the first tarsometatarsal joint. This is likely a stress injury to bone. Patient also had a heel spur. Patient may be experiencing pressure type symptoms in the feet with episodic numbness when standing. Seems to improve when resting. Father and brother have a history of rotator cuff tears and father has a historyof left labrum injury. Patient may be prone to familial connective tissue dysfunction. Exact nature not clear to my review. Plan: 1. Patient should take precautions and trying to limit injury to foot. 2. Have recommended swimming as a method of maintaining muscle tone while limiting pressure on feet. 3. No action per neurology indicated at this time. 4. Patient may return to neurology clinic as needed. (2) Reed Griggs virus infection: Status: Suspected Comment: Patient does have some positive titers for Reed-Griggs virus screen. Exact interpretation somewhat difficult from my perspective and that indicates that patient did have exposure to Reed-Griggs virus but relative activity and still acute versus chronic may be subject to interpretation. Plan: 1. Defer to primary care physician to evaluate. 2. This may explain some of patient's symptoms particularly with regard to fatigue or chronic fatigue like symptoms. Plan Details Goals & Barriers: Goals Decrease pain Improve sleep Decrease spasm Improve alignment Barriers Previous L knee/foot/ankle injury Intake Vital Signs 09/23/22 23:36 12/05/24 02:17 04/06/25 10:04 Height 5 ft 7 in 5 ft 7 in 5 ft 7 in Weight: 203 lb BMI 31.8 BP 110/77 Blood Pressure Location Lt brachial Position Sitting Respiration 16 Pulse 68 Pulse Source Monitor Temp 98.2 F Temp Source Temporal Pulse Oximetry (%) 99 Oxygen Delivery Method room air Intake Visit Reasons: Establish Care paresthesia of lower extremity Chief Complaint: est care Banana Expert Required: No Accompanied by: Self Is patient in pain?: Yes (b/l feet, with walking the pain increases ) Pain scale(1-10): 8 Allergies adhesive tape Allergy (Mild, Verified 04/06/25 09:55) Rash Medications ?Medication ?Instructions ?Recorded ?Confirmed ?Type drospirenone 3 mg-ethinyl 1 ea PO DAILY 08/07/2004/06 History estradiol 0.02 mg tablet multivitamin 1 tab PO DAILY 02/06/2303/10 History NAC PO 04/06/25 04/06/25 History ascorbic acid (vitamin C) 1,000 mg 1,000 mg PO BID 04/06/25 History capsule Nurse's Note: having chronic fatigue issues, pt is following with OBGYN for these issues. [facility] Medical History Heart murmur IBS (irritable bowel syndrome) Hypoglycemia Patellar maltracking Surgical History Status post left foot surgery S/P left knee arthroscopy H/O rhinoplasty Family History Mother In good health Father In good health Gout Social History household members: significant other housing: house current occupational status: employed current occupation: [employer] pets and animals: No Smoking Status: Never smoker alcohol intake: current alcohol intake frequency: a few times a week Alcohol type: beer, wine and hard liquor substance use type: does not use what type of physical activity do you participate in: none seatbelt use: always do you feel safe at home: Yes Coding Level of Care Code New Pt Off vis,new,level 4 Patient Type New History Expanded Problem Focused Exam Expanded Problem Focused Medical Decision Making Moderate Complexity Diagnoses Paresthesia of foot, bilateral R20.2 Reed Griggs virus infection B27.90 04/06/25 1113 <Electronically signed by Melvin bacon MD> Date _ Melvin Cutler MD Cosigner Signature: Date (if applicable) CC: ~ [facility] Work Phone: [facility] Outpatient Procedure (Routine) - Pending Review Specialty Diagnoses / Procedures Referred By Boby t Referred To Contact [facility] Diagnoses Encounter for IUD insertion Procedures INSERT INTRAUTERINE DEVICE LEVONORGESTREL IU 52MG 5 YR INSERT INTRAUTERINE DEVICE Susanna Arango MD [address] [place] [address] [address] Referral ID Status Reason Start Date Expiration Date Visits Requested Visits Authorized [id number] Pending Review Auto-Generat ed Referral 06/20/[address] [facility] for referral (narrative)* Outpatient Procedure (Routine) - Pending Review Specialty Diagnoses / Procedures Referred By Boby t Referred To Contact [facility] Diagnoses Encounter for IUD removal Procedures REMOVE INTRAUTERINE DEVICE REMOVE INTRAUTERINE DEVICE Duran Evans APRN.CNP [address] [place] [address] [address] Referral ID Status Reason Start Date Expiration Date Visits Requested Visits Authorized [id number] Pending Review Auto-Generat ed Referral 11/08/2023 2024 1 1 [facility] for referral (narrative)* Diagnostic Procedure Only (Routine) - Pending Review Specialty Diagnoses / Procedures Referred By Contac t Referred To Contact [facility] Diagnoses Pelvic pain in female Procedures US FEMALE PELVIS TRANSVAG US TRANSVAGINAL Susanna Arango MD [address] [place] [address] [place] [id number] Referral ID Status Reason Start Date Expiration Date Visits Requested Visits Authorized [id number] Pending Review Auto-Generat ed Referral 08/14/2023 09/12/2024 [facility]No reason for referral information availableWOhio[facility] Work Phone: Reason for visit Narrative* EMG/NCS (Routine) - Closed Specialty Diagnoses / Procedures Referred By Contac t Referred To Contact Neurology Diagnoses Radiculopathy, lumbar region Sunil Paniagua Jr., DPM [address] [facility] [address] [place] [address] Phone: tel: fax: [facility] Referral ID Status Reason Start Date Expiration Date Visits Re quested Visits Authorized [id number] Closed 10/30/2024 10/30/2025 [address] [facility] Summary Purpose Family History No Family History Records Found Relationship Condition Age at Onset Recorded Date/T sarah mother In good health Unknown father In good health Unknown Gout Unknown Advance Directives No Advanced Directives Records Found Advance Directive Response Recorded Date/ Time Living Will No September 23, 2022 11:36pm Power of Telephone Maintenance Mechanic No September 23 11:36pm Advance Directive Response Recorded Date/ Time Do you have a Healthcare Power of Telephone Maintenance Mechanic? No December 05, 2024 2:19am Chief Complaint and Reason for Visit Chief Complaint LT ANKLE. PT TO BRIN G RX SP Chief Complaint SEE ORDER Chief Complaint SEE ORDER LOW IGA Chief Complaint SEE ORDER LOW IGA DIARRHEA Chief Complaint LEFT KN PAIN/PT HAS RX Chief Complaint R knee pain ORDER FROM DR. JACKSON Chief Complaint R knee pain ORDER FROM DR. RENETTA Mullen KN ARTHOSCOPY/PT HAS RX Chief Complaint L KN ARTHOSCOPY/PT H RX est care Back pain Back pain TENDINITIS OF LEFT FOOT. RX HERE. Reason for Visit Neck pain Segmental and somatic dysfunction of cervical region Segmental and somatic dysfunction of lumbar region Segmental and somatic dysfunction of pelvic region Segmental and somatic dysfunction of thoracic region Neck pain Segmental and somatic dysfunction of cervical region Segmental and somatic dysfunction of lumbar region Segmental and somatic dysfunction of pelvic region Segmental and somatic dysfunction of thoracic region Neck pain Segmental and somatic dysfunction of cervical region Segmental and somatic dysfunction of lumbar region Segmental and somatic dysfunction of pelvic region Segmental and somatic dysfunction of thoracic region Back pain Chief Complaint Admit Date L ANKLE PAIN December 05, 2024 2:16a m Chief Complaint Admit Date L ANKLE PAIN December 05, 2024 2:16a m EORDER February 20, 2025 8: 37am Chief Complaint Admit Date EORDER February 20, 2025 8: 37am Establish Care paresthesia of lower extr emity April 06, 2025 9:51am Reason for Visit Admit Date Paresthesia of foot, bilateral April 06, 2025 9:51am Reed Griggs virus infection March 102024 9:51am Reason for Referral Specialty Diagnoses / Procedures Referred By Boby mejia Referred To Contact Radiology Diagnoses Post concussive syndrome Procedures CT Head Or Brain Without Contrast Sunil Lopes, RENT COLLECTOR [address] [place] [address] Referral ID Status Reason Start Date Expiration Date Visits Re quested Visits Authorized [id number] Closed 08/28/2023 08/27/2024 1 1 Additional Source Comments INFORMATION SOURCE (unrecogn ized section and content) DATE CREATED AUTHOR 09/19/2019 [facility] DATE CREATED AUTHOR AUTHOR'S ORGANIZ ATION 08/23/2023 [facility] DATE CREATED AUTHOR AUTHOR'S ORGANIZ ATION 09/04/2023 [facility] DATE CREATED AUTHOR AUTHOR'S ORGANIZ ATION 09/04/2023 [facility] DATE CREATED AUTHOR AUTHOR'S ORGANIZ ATION 08/25/2024 [facility] DATE CREATED AUTHOR AUTHOR'S ORGANIZ ATION 11/22/2024 [facility] DATE CREATED AUTHOR AUTHOR'S ORGANIZ ATION 04/01/2025 [facility] DATE CREATED AUTHOR AUTHOR'S ORGANIZ ATION 05/14/2025 [facility] Goals (unrecognized section and content) Goals may be documented in a n alternate sectionGoals may be documented in an alternate sectionGoals may be documented in an alternate sectionGoals may be documented in an alternate sectionGoals may be documented in an alternate sectionGoals may be documented in an alternate sectionGoals may be documented in an alternate sectionGoals may be documented in an alternate sectionGoals may be documented in an alternate sectionGoals may be documented in an alternate sectionGoals may be documented in an alternate sectionGoals may be documented in an alternate sectionGoals may be documented in an alternate sectionGoals may be documented in an alternate section Care Teams (unrecognized sec tion and content) Team Status: Active Member Role Status Dates Dr. Amber Galindo MD Family Provider Active Dr. Amber Galindo MD Primary Care Provider Active Team Status: Inactive Member Role Status Dates Dr. Amber Galindo MD Primary Care Provider Active Dr. Veronique Upton MD Attending Provider, Referring Pro vider Active Team Status: Active Member Role Status Dates Dr. Amber Galindo MD Primary Care Provider Active Dr. Benoit Claros MD Attending Provider, Referring Provider Active Team Status: Inactive Member Role Status Dates Dr. Amber Galindo MD Primary Care Provider Active Dr. Veronique Upton MD Attending Provider Active Team Status: Active Member Role Status Dates Dr. Amber Galindo MD Primary Care Provider Active Dr. Sadiq Tenorio MD Attending Provider Active Team Status: Inactive Member Role Status Dates Dr. Amber Galindo MD Primary Care Provider Active Dr. Yanna Jackson MD Attending Provider, Emergency Provider Active Team Status: Inactive Member Role Status Dates Dr. Amber Galindo MD Primary Care Provider Active Dr. Yanna Jackson MD Attending Provider, Referring Provider Active Team Status: Active Member Role Status Dates Dr. Amber Galindo MD Primary Care Provider Active Dr. Sadiq Tenorio MD Attending Provider Active Dr. Yanna Jackson MD Referring Provider Active Team Status: Inactive Member Role Status Dates Dr. Amber Galindo MD Primary Care Provider Active Dr. Benoit Claros MD Attending Provider, Referring Provider Active Team Status: Inactive Member Role Status Dates Dr. Amber Galindo MD Primary Care Provider, Referrin g Provider Active Dr. Kaye Rodriguez DC Attending Provider Active Real Estate Broker Relationship Specialty Start Date End Date Amber Galindo MD [address] [facility] [address] [place] [address] PCP - General Family Medicine 08/22/23 Real Estate Broker Relationship Specialty Start Date End Date Amber Galindo MD [address] [place] [address] PCP - General Family Medicine 08/22/23 Real Estate Broker Relationship Specialty Start Date End Date Amber Galindo MD [address] [place] [address] PCP - General Family Medicine 08/22/23 Real Estate Broker Relationship Specialty Start Date End Date Amber Galindo MD [address] [place] [address] PCP - General Family Medicine 08/22/23 Real Estate Broker Relationship Specialty Start Date End Date Amber Galindo [address] [place] [address] PCP - General Family Medicine 06/27/23 Real Estate Broker Relationship Specialty Start Date End Date Amber Galindo [address] [place] [address] PCP - General Family Medicine 06/27/23 Real Estate Broker Relationship Specialty Start Date End Date Amber Galindo [address] [place] [address] PCP - General Family Medicine 06/27/23 Real Estate Broker Relationship Specialty Start Date End Date Amber Galindo [address] [place] [address] PCP - General Family Medicine 06/27/23 Real Estate Broker Relationship Specialty Start Date End Date Amber Galindo [address] [place] [address] PCP - General Family Medicine 06/27/23 Real Estate Broker Relationship Specialty Start Date End Date Amber Galindo [address] [place] [address] PCP - General Family Medicine 06/27/23 Real Estate Broker Relationship Specialty Start Date End Date Amber Galindo [address] [place] [address] PCP - General Family Medicine 06/27/23 Real Estate Broker Relationship Specialty Start Date End Date Amber Galindo [address] [place] [address] PCP - General Family Medicine 06/27/23 Real Estate Broker Relationship Specialty Start Date End Date Amber Galindo MD [address] [place] [address] PCP - General Family Medicine 08/22/23 Real Estate Broker Relationship Specialty Start Date End Date Amber Galindo MD [address] [place] [address] PCP - General Family Medicine 08/22/23 Real Estate Broker Relationship Specialty Start Date End Date Amber Galindo MD [address] [place] [address] PCP - General Family Medicine 08/22/23 Team Status: Active Member Role Status Dates No Primary Care Physician Primary Care Provider Active Team Status: Inactive Member Role Status Dates No Primary Care Physician Primary Care Provider Active Start: December 05, 2024 End: December 05, 2024 Dr. Aditya Randhawa DO Emergency Provider Active Start : December 05, 2024 End: December 05, 2024 Team Status: Active Member Role/Relationship Status Washington Watkins MD Primary Care Provider Active Team Status: Inactive Member Role/Relationship Status Washington Ugarte Primary Care Physician Primary Care Provider Active Start: December 05, 2024 End: December 05, 2024 Dr. Aditya Randhawa DO Attending Provider Active Start : December 05, 2024 End: December 05, 2024 Dr. Aditya Randhawa DO Emergency Provider Active Start : December 05, 2024 End: December 05, 2024 Team Status: Inactive Member Role/Relationship Status Washington Watkins MD Primary Care Provider Active St art: December 30, 2024 End: December 30, 2024 Luisito Watkins MD Attending Provider Active Start : December 30, 2024 End: December 30, 2024 Luisito Watkins MD Referring Provider Active Start : December 30, 2024 End: December 30, 2024 Team Status: Inactive Member Role/Relationship Status Washington Watkins MD Primary Care Provider Active St art: February 18, 2025 End: February 18, 2025 Dr. Sadiq Benítez MD Attending Provider Active St art: February 18, 2025 End: February 18, 2025 Team Status: Active Member Role/Relationship Status Washington Watkins MD Primary Care Provider Active St art: February 20, 2025 Dr. Sadiq Benítez MD Attending Provider Active St art: February 20, 2025 Dr. Sadiq Benítez MD Referring Provider Active St art: February 20, 2025 Team Status: Inactive Member Role/Relationship Status Washington Watkins MD Primary Care Provider Active St art: February 20, 2025 End: February 20, 2025 Dr. Sadiq Benítez MD Attending Provider Active St art: February 20, 2025 End: February 20, 2025 Dr. Sadiq Benítez MD Referring Provider Active St art: February 20, 2025 End: February 20, 2025 Team Status: Active Member Role/Relationship Status Washington Watkins MD Primary care physician Active Team Status: Inactive Member Role/Relationship Status Washington Watkins MD Primary care physician Active S tart: December 30, 2024 End: December 30, 2024 Luisito Watkins MD Attending physician Active Star t: December 30, 2024 End: December 30, 2024 Luisito Watkins MD Referring Provider Active Start : December 30, 2024 End: December 30, 2024 Team Status: Inactive Member Role/Relationship Status Dates Luisito Watkins MD Primary care physician Active S tart: February 18, 2025 End: February 18, 2025 Dr. Sadiq Benítez MD Attending physician Active S tart: February 18, 2025 End: February 18, 2025 Team Status: Inactive Member Role/Relationship Status Dates Luisito Watkins MD Primary care physician Active S tart: February 20, 2025 End: February 20, 2025 Dr. Sadiq Benítez MD Attending physician Active S tart: February 20, 2025 End: February 20, 2025 Dr. Sadiq Benítez MD Referring Provider Active St art: February 20, 2025 End: February 20, 2025 Team Status: Inactive Member Role/Relationship Status Dates Dr. Amber Galindo MD Referring Provider Active Start: April 06, 2025 End: April 06, 2025 Dr. Melvin Cutler MD Attending physician Active Start: April 06, 2025 End: April 06, 2025 Luisito Watkins MD Primary care physician Active S tart: April 06, 2025 End: April 06, 2025 Source Comments (unrecognize d section and content) In the event this informatio n is protected by the Federal Confidentiality of Alcohol and Drug Abuse Patient Records regulations: The Federal rules restrict any use of the information to criminally investigate or prosecute any alcohol or drug abuse patient.[facility] the event this information is protected by the Federal Confidentiality of Alcohol and Drug Abuse Patient Records regulations: The Federal rules restrict any use of the information to criminally investigate or prosecute any alcohol or drug abuse patient.[facility] the event this information is protected by the Federal Confidentiality of Alcohol and Drug Abuse Patient Records regulations: The Federal rules restrict any use of the information to criminally investigate or prosecute any alcohol or drug abuse patient.[facility] the event this information is protected by the Federal Confidentiality of Alcohol and Drug Abuse Patient Records regulations: The Federal rules restrict any use of the information to criminally investigate or prosecute any alcohol or drug abuse patient.[facility] the event this information is protected by the Federal Confidentiality of Alcohol and Drug Abuse Patient Records regulations: The Federal rules restrict any use of the information to criminally investigate or prosecute any alcohol or drug abuse patient.[facility] the event this information is protected by the Federal Confidentiality of Alcohol and Drug Abuse Patient Records regulations: The Federal rules restrict any use of the information to criminally investigate or prosecute any alcohol or drug abuse patient.[facility] the event this information is protected by the Federal Confidentiality of Alcohol and Drug Abuse Patient Records regulations: The Federal rules restrict any use of the information to criminally investigate or prosecute any alcohol or drug abuse patient.[facility] the event this information is protected by the Federal Confidentiality of Alcohol and Drug Abuse Patient Records regulations: The Federal rules restrict any use of the information to criminally investigate or prosecute any alcohol or drug abuse patient.[facility] the event this information is protected by the Federal Confidentiality of Alcohol and Drug Abuse Patient Records regulations: The Federal rules restrict any use of the information to criminally investigate or prosecute any alcohol or drug abuse patient.[facility] Reason for Visit (unrecogniz ed section and content) Reason Comments Yearly Exam Discuss birthcontrol Reason Comments Follow-up Ab pain from IUD Reason Comments Follow-up Pt states f/u on con cussion and doesn't feel better Reason Comments Menstrual Problem Pelvic Pain Reason Comments Follow Up Issues with iud Reason Comments Patient Question Reason Comments IUD Removal Specialty Diagnoses / Procedures Referred By Boby mejia Referred To Contact [facility] Diagnoses Encounter for IUD removal Encounter for insertion of intrauterine contraceptive device Procedures REMOVE INTRAUTERINE DEVICE REMOVE INTRAUTERINE DEVICE LEVONORGESTREL IU 52MG 5 YR INSERT INTRAUTERINE DEVICE Duran Evans, ANIKA.RENT COLLECTOR [address] [place] [place] [address] [facility] [address] [place] [address] Referral ID Status Reason Start Date Expiration Date Visits Requested Visits Authorized [id number] Authorized Auto-Generat ed Referral 11/21/2023 07/08/2024 2 2 Reason Onset Date Comments Refill Request 02/25/2024 Reason Onset Date Comments Refill Request 06/09/2024 Reason Comments Well Woman Reason Onset Date Comments Refill Request 08/13/2024 Reason Comments URI Pt reports cough, ch ills, fever, body aches, and s/t x 2 days. FOR RECORDS PERTAINING TO PATIENTS WHO ARE OR HAVE BEEN ENROLLED IN A CHEMICAL DEPENDENCY/SUBSTANCEABUSE PROGRAM, SOME INFORMATION MAY BE OMITTED. This clinical summary was aggregated from multiple sources. Caution should be exercised in using it in the provision of clinical care. This summary normalizes information from multiple sources, and as a consequence, information in this document may materially change the coding, format and clinical context of patient data. In addition, data may be omitted in some cases. CLINICAL DECISIONS SHOULD BE BASED ON THE PRIMARY CLINICAL RECORDS. [employer] provides no warranty or guarantee of the accuracy or completeness of information in this document.
== END | disposition home or self-care (01) ==
LOC: CT 16:32
PROVIDERS: PCP Family Medicine; Referring Provider Otolaryngology; Visit Provider Otolaryngology
DX: J32.8 Other chronic sinusitis (principal)
CPT/HCPCS: 70486